=== PATIENT | male | born 1960 | race Two or more races ===

== ENCOUNTER 2016-12-19 10:30 | Emergency (ER) | payer MEDICAID ==
[~2016-12-19] VITALS: Ht 167.6 cm; Wt 69.0 kg
[~2016-12-19 10:30] MED LIST: LISI-360 PO; METH750T2 PO
[2016-12-19 10:32] VITALS: BP 187/109; PULSE 78; RESP 20; TEMP 97.7; O2SAT 98
--- NOTE | 2016-12-19 11:02 | PD ---
HPI Chief Complaint: Skin Problem Time Seen by Provider: 11:01 Travel History International Travel<30 days: No Contact w/Intl Traveler<30days: No Traveled to known affect area: No History of Present Illness HPI 56-year-old male presents to the emergency Department with complaint of redness , pain, swelling to his left foot that started 3 or 4 days ago. Denies injury. Thinks he may have been bit by an insect. Denies history of gout. Denies fever, vomiting. Denies paresthesias, loss of sensation, decreased range of motion or decreased into the affected extremity. Reports tenderness on palpation and with ambulation. Has taken [id number] anti-inflammatories for symptom management. Unknown tetanus status. Has no other medical complaints. No other modifying factors or associated signs and symptoms. PFSH Past Medical History Cardiovascular Problems: Yes (htn) Gastrointestinal Disorders: Yes (colitis) Hypertension: Yes Musculoskeletal: Yes (CHRONIC NECK/BACK PAIN) Social History Alcohol Use: Yes (OCCASIONAL) Tobacco Use: Yes (1/2 PPD) Substance Use: No Allergies-Medications (Allergen,Severity, Reaction): Coded Allergies: Marcoster (Verified Allergy, Severe, Rash, 12/19/16) Reported Meds & Prescriptions Reported Meds & Active Scripts Active Deltasone (Prednisone) 20 Mg Tab 40 Mg PO DAILY 4 Days start 12/20/2016 Bactrim (Sulfamethoxazole-Trimethoprim) 400-80 Mg Tab 1 Tab PO BID 10 Days Naproxen 500 Mg Tab 500 Mg PO BID 7 Days Keflex (Cephalexin) 500 Mg Cap 500 Mg PO Q6H 10 Days Lisinopril 10 mg (Lisinopril) 10 Mg Tab 1 Tab PO DAILY Methocarbamol 750 Mg Tab 750 Mg PO QID Review of Systems Except as stated in HPI: all other systems reviewed are Neg Physical Exam Narrative GENERAL: Well-nourished, well-developed male patient, in no acute distress ; afebrile, nontoxic-appearing SKIN: Warm and dry. Left foot dorsal great toe with mild erythema and mild edema extending into the metatarsal region. Tender on palpation. No abscess noted. Left Lower extremity supple and nontense with 2+ pedal pulse and sensory intact. HEAD: Atraumatic. Normocephalic. EYES: Pupils equal and round. No scleral icterus. No injection or drainage. ENT: Mucosa pink and moist. No erythema or exudates. NECK: Trachea midline. No lymphadenopathy. CARDIOVASCULAR: Regular rate. RESPIRATORY: No accessory muscle use. GASTROINTESTINAL: Flat. MUSCULOSKELETAL: No obvious deformities. No clubbing. No cyanosis. No edema. NEUROLOGICAL: Awake and alert. Oriented 3. No obvious cranial nerve deficits. Motor grossly within normal limits. Normal speech. Moves all extremities. 5/5 strength to all extremities. PSYCHIATRIC: Appropriate mood and affect; insight and judgment normal. Data Data Last Documented VS Vital Signs Date Time Temp Pulse Resp B/P Pulse Ox O2 Delivery O2 Flow Rate FiO2 12/19/16 10:32 97.7 78 20 187/109 98 Room Air Orders Tetanus/Diphtheria Tox Adult (Tetanus/Di (12/19/16 11:15) Ketorolac Inj (Toradol Inj) (12/19/16 11:15) Foot, Complete (Eai2kiu) (12/19/16 11:02) Ice/Cold Pack (12/19/16 11:02) Prednisone (Deltasone) (12/19/16 11:15) MDM Medical Decision Making Medical Screen Exam Complete: Yes Emergency Medical Condition: Yes Medical Record Reviewed: Yes Differential Diagnosis Gout exacerbation, cellulitis, osteomyelitis Narrative Course 56-year-old male with redness to the dorsal metatarsal region of the left great toe that extends to the metatarsal region. Denies history of gout. Denies injury. Finding are consistent with possible gout exacerbation or cellulitis. I will treat the patient for possibility of gout and cellulitis. She is afebrile nontoxic appearing. He denies fever, vomiting. Tetanus updated in the ER. Toradol and Deltasone administered in the ER. 1318: Left foot x-ray concludes: Last 24 hours Impressions Foot X-Ray 12/19/16 1102 Signed Impressions: Service Date/Time: Monday, December 19, 2016 11:18 - CONCLUSION: Unremarkable study except for calcaneal spur. Júnior Camilo MD I will treat the patient for possible gout exacerbation and cellulitis. Crutches provided for support. Keflex, Bactrim, naproxen, Deltasone prescribed for home. Instructed patient to follow up with primary care provider. Patient verbalizes understanding and agreement with treatment plan. Patient is medically cleared and stable for discharge. Discussed reasons to return to the emergency department. Patient agrees with treatment plan. The patients vital signs are stable and the patient is stable for outpatient follow-up and treatment. Patient discharged home, stable and in no acute distress. Diagnosis Primary Impression: Inflammation of foot joint Additional Impression: Edema of left foot Referrals: Primary Care Physician Patient Instructions: Cellulitis (ED), Crutch Instructions (ED), General Instructions, Gout (ED) Departure Forms: Tests/Procedures, Work Release Enter return to work date: Dec 22, 2016 Additional Instructions: Antibiotics as prescribed Naproxen as prescribed Rest Elevate affected extremity Oral steroids as prescribed Crutches as needed for support Avoid red meat, shellfish, alcohol, and other triggering foods to decrease risk of gout flare-ups Follow-up with your primary care provider Return to the emergency department with worsening of symptoms Med/Other Pt SpecificInfo: Prescription(s) given Scripts Prednisone (Deltasone)20 Mg Tab40 Mg PO DAILY 4 Days Ref 0 start 12/20/2016 Prov:Zayda Corbett 12/19/16 Sulfamethoxazole-Trimethoprim (Bactrim)400-80 Mg Tab1 Tab PO BID 10 Days Ref 0 Prov:Zayda Corbett 12/19/16 Naproxen 500 Mg Qkd226 Mg PO BID 7 Days Ref 0 Prov:Zayda Corbett 12/19/16 Cephalexin (Keflex)500 Mg Qdw442 Mg PO Q6H 10 Days Ref 0 Prov:Zayda CorbettP 12/19/16 Disposition: 01 DISCHARGE HOME Condition: Stable Zayda Corbett Dec 19, 2016 11:01
[2016-12-19] MEDS ORDERED: KETOROLAC TROMETHAMINE 60 MG/2 ML (IM) VIAL IM ONE (11:15)
[2016-12-19] MEDS ORDERED: predniSONE 20 MG TAB PO ONE (11:15)
[2016-12-19] MEDS ORDERED: TETANUS/DIPHTHERIA TOXOID ADULT 0.5 ML VIAL IM ONE (11:15)
--- NOTE | 2016-12-19 12:00 | RADRPT ---
EXAM DATE/TIME: 12/19/2016 11:18 [facility] COMPARISON: No previous studies available for comparison. INDICATIONS : Left foot inflammation for 3 days. No known injury. MEDICAL HISTORY : Hypertension. SURGICAL HISTORY : None. ENCOUNTER: Initial ACUITY: 3 days PAIN SCORE: 5/10 LOCATION: Left foot FINDINGS: No definite fractures, or dislocations are identified. No definite lytic or sclerotic lesion is seen . Calcaneal spur is present at the attachment site of the plantar aponeurosis. CONCLUSION: Unremarkable study except for calcaneal spur. Júnior Camilo MD on December 19, 2016 at 11:57 Board Certified Radiologist. This report was verified electronically.
[2016-12-19] MEDS ORDERED: CEPH-460 PO (13:22)
[2016-12-19] MEDS ORDERED: BACT400T PO (13:22)
[2016-12-19] MEDS ORDERED: NAPR500T PO (13:22)
[2016-12-19] MEDS ORDERED: PRED-503 PO (13:22)
== END 2016-12-19 14:17 | disposition home or self-care (01) ==
LOC: NEPD 10:30
DX: R60.9 Edema, unspecified (principal); I10 Essential (primary) hypertension; F17.200 Nicotine dependence, unspecified, uncomplicated; Z79.899 Other long term (current) drug therapy; Z23 Encounter for immunization
CPT/HCPCS: 73630; 90471; 90714; 96372; 99284; E0113; J1885; J7512

== ENCOUNTER 2017-01-28 17:10 | Inpatient (IN) | payer OTHER ==
[~2017-01-28 17:10] MED LIST changes: +BACT400T PO; +CEPH-460 PO; +NAPR500T PO; +PRED-503 PO
[2017-01-28 23:00] VITALS: O2SAT 99
[2017-01-28] MEDS ORDERED: NALOXONE HCL 0.4 MG/ML AMP IV PRN (23:15)
[2017-01-28] MEDS ORDERED: SODIUM CHLORIDE 0.9% FLUSH 10 ML FLUSH IV FLUSH PRN (23:15)
[2017-01-28 23:30] VITALS: BP 179/99; PULSE 98; RESP 20; TEMP 98.9; O2SAT 100
[2017-01-28] MEDS ORDERED: ACETAMINOPHEN 325 MG TAB PO PRN (23:30)
[2017-01-29] VITALS (8 sets, daily range): BP systolic 144–180; BP diastolic 85–96; PULSE 95–104; RESP 18–22; TEMP 99–99.5; O2SAT 95–100
[2017-01-29] MEDS: PANTOPRAZOLE SODIUM 40 MG VIAL IV PUSH SCH (01:27)
[2017-01-29] MEDS ORDERED: BUTATAB6 PO (03:17)
[2017-01-29] MEDS ORDERED: ONDA4INJ IV PUSH (03:17)
[2017-01-29] MEDS ORDERED: PROSLIQ DOBHOFF (03:17)
[2017-01-29] MEDS ORDERED: MUPI2%T TOPICAL (03:17)
[2017-01-29] MEDS ORDERED: FLEE5TAB PO (03:17)
[2017-01-29] MEDS ORDERED: HUMUINJ5 SQ (03:17)
[2017-01-29] MEDS ORDERED: ASPI81TA11 PO (03:17)
[2017-01-29] MEDS ORDERED: CULT10CA4 PO (03:17)
[2017-01-29] MEDS ORDERED: SENN8.8S7 PO (03:17)
[2017-01-29] MEDS ORDERED: HEPA1INJ SQ (03:17)
[2017-01-29] MEDS ORDERED: TYLE325T PO ×2 (03:17)
[2017-01-29] MEDS ORDERED: NYST1000 SWISH-SWAL (03:17)
[2017-01-29] MEDS ORDERED: AMLO10TA2 PO (03:17)
[2017-01-29] MEDS ORDERED: POTA10PO PO (03:17)
[2017-01-29] MEDS ORDERED: SERO25TA PO (03:17)
[2017-01-29] MEDS ORDERED: [UNRECOGNIZED DRUG - CODE] PO (03:17)
[2017-01-29] MEDS ORDERED: ALBU.5I NEB (03:17)
[2017-01-29] MEDS ORDERED: METO-309 DOBHOFF (03:17)
[2017-01-29] MEDS ORDERED: RESP: ALBUTEROL 2.5 MG/3 ML NEB (PRN) NEB (03:45)
[2017-01-29] MEDS: [UNRECOGNIZED DRUG - OTHER] DOBHOFF SCH ×2 (04:00→06:00)
[2017-01-29 05:20] LABS: ALT (GPT) 129 U/L (12-78); ANION GAP 9 MEQ/L (5-15); AST (GOT) 35 U/L (15-37); BLOOD UREA NITROGEN 12 MG/DL (7-18); CHLORIDE 104 MEQ/L (98-107); GLOMERULAR FILTRATION RATE 121 ML/MIN (>89); POTASSIUM 3.9 MEQ/L (3.5-5.1); SODIUM (NA) 135 MEQ/L (136-145)
[2017-01-29 05:22] LABS: ALKALINE PHOSPHATASE 190 U/L (45-117); TOTAL BILIRUBIN ADULT 0.3 MG/DL (0.2-1.0)
[2017-01-29 05:26] LABS: AUTOMATED NEUTROPHIL # 8.5 TH/MM3 (1.8-7.7); BASOPHIL # 0.1 TH/MM3 (0-0.2); BASOPHIL % 0.5 % (0.0-2.0); EOSINOPHIL # 0.2 TH/MM3 (0-0.4); EOSINOPHIL % 1.6 % (0.0-4.0); HEMATOCRIT 27.4 % (39.0-51.0); HEMO FLAGS DIFF FINAL; LYMPH % 11.3 % (9.0-44.0); LYMPHOCYTE # 1.2 TH/MM3 (1.0-4.8); MEAN CELL VOLUME 90.3 FL (80.0-100.0); MEAN CORPUSCULAR HEMOGLOBIN 30.3 PG (27.0-34.0); MEAN CORPUSCULAR HGB CONC 33.5 % (32.0-36.0); MONO % 8.6 % (0.0-8.0); PLATELET COUNT 840 TH/MM3 (150-450); RED BLOOD COUNT 3.03 MIL/MM3 (4.50-5.90); RED CELL DISTRIBUTION WIDTH 15.3 % (11.6-17.2); WHITE BLOOD COUNT 10.9 TH/MM3 (4.0-11.0)
[2017-01-29] MEDS: HEPARIN SODIUM - SQ 10,000 UNITS/ML VIAL SQ SCH ×3 (06:21→21:47)
[2017-01-29] MEDS: LACTOBACILLUS ACIDOPHILUS TAB PO SCH ×2 (09:00→21:47)
[2017-01-29] MEDS: SODIUM CHLORIDE 0.9% FLUSH 10 ML FLUSH IV FLUSH SCH ×2 (09:00→21:48)
[2017-01-29] MEDS: SENNOSIDES SYRUP 8.8 MG/5 ML CUP PO SCH ×2 (09:00→21:47)
[2017-01-29] MEDS: MUPIROCIN 2% CREAM 15 GM TOPICAL SCH ×2 (09:00→21:47)
[2017-01-29] MEDS: ASPIRIN EC 81 MG TABEC PO SCH (09:00)
[2017-01-29] MEDS: NYSTATIN SUSP 500,000 U/5 ML CUP SWISH-SWAL SCH ×4 (09:00→21:47)
[2017-01-29] MEDS: METOPROLOL TARTRATE 50 MG TAB DOBHOFF SCH (09:00)
--- NOTE | 2017-01-29 12:06 | MH ---
cc: SIOMARA MANCILLA,DAVIS POPE,TUTU Martin M.D. DATE OF ADMISSION: 01/28/2017 HISTORY OF PRESENT ILLNESS: The patient is a 54-year-old gentleman who was transferred to [facility] for a Dr. Tutu Pope evaluation. He was transferred from [facility] for treatment of subarachnoid hemorrhage. He was at work when the complaint of a severe headache. He was taken to an office and given aspirin and some fluids. His mental status continued to decline. He was intubated by EMS en route to the emergency room with seizure activity and decerebrate posturing. Reportedly he had a Lanre Coma Scale of 3 at the [facility] Emergency Department. Initially his pupils were reportedly 5 mm nonreactive. He reportedly began flexing and localizing with his upper extremities. At some point in the emergency department, he was given 1000 milligrams Keppra. The patient's blood pressure was elevated at 200/129 in the emergency department. He had a CT scan of the head that revealed a large amount of diffuse subarachnoid hemorrhage. He was transferred to the [facility] Emergency Room for evaluation. He had a CTA of the neck, which shows the ET tube appears determinate in the latha. No significant flow limiting carotid artery stenosis or dissection. Symmetric vertebral arteries with a slightly larger caliber left vertebral artery, likely moderate stenosis of the distal right vertebral artery near the vertebrobasilar junction with post-stenotic dilatation rather than aneurysm. He had a CTA of the head, which showed no evidence for large vessel occlusion, asymmetric distal vertebral arteries with small caliber right vertebral artery which is tortuous distally with apparent moderate stenosis; however, there is a 5 x 7 mm fusiform dilatation of the vertebral artery just beyond the focal stenosis which appears more prominent on the examination when compared to the carotid CT examination more than expected for a simple post- stenotic dilatation therefore concerning for aneurysm. He had a head CT which showed extensive subarachnoid hemorrhage and a fusiform vertebral artery dilatation. He was admitted to the intensive care unit and continued on ventilator support. IV sedation by Dr. Pope. Anti-hypertensive medications with nicardipine was started. Blood pressure was titrated. He was continued with nimodipine for the vasospasms and Keppra. The patient had an echocardiogram here which showed the left ventricular systolic function is normal with an estimated ejection fraction in the range of 55% to 60%, mild concentric left ventricular hypertrophy. There is asymmetrical septal hypertrophy. with impaired left ventricular relaxation, grade 1 diastolic dysfunction, trace mitral valve regurgitation. PAST MEDICAL HISTORY: Limited. He had consultation done by critical care with a 56-year-old male transferred from [facility] with history of gout and hypertension. PAST SURGICAL HISTORY: No past surgical history. MEDICATIONS: 1. Metoprolol. 2. Medication for gout. FAMILY HISTORY: His father of a stroke in his 50s. The mother had diabetes. The is not aware of any history of cerebral aneurysms. SOCIAL HISTORY: He smokes one to two packs per day and he has been doing that over 25 years. He drinks two beers per night and more on the weekends. He recently quit beer due to gout and switched to wine. He works in [employer] part-time. 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 He is . He was in the acute seizure coma with a need for ventriculostomy. He is supposed to have an angiogram. He had the acute respiratory failure and tobacco abuse. He had nicardipine for blood pressure control. He has gout. He was seen by Dr. Villanueva here also. He had procedure done on January 22. He had a right subclavian central venous access placed by Dr. Caity Villanueva. On January 12, he had a left radial arterial catheter placement for hemodynamic monitoring for underlying subarachnoid hemorrhage. He had the echocardiogram as stated and was seen by neurosurgical. He had remained intubated and mechanically ventilated. He had been sedated with propofol and Fentanyl. The patient would raise the extremities to the bed with decerebrate posturing. He had severe diffuse subarachnoid hemorrhage, fusiform vertebral artery dilatation. He was continued on the ventilator. Followed by critical care here. He was seen by them. Blood pressure was better controlled on the Cardene drip. Had the EEG which showed abnormal study consistent with moderate encephalopathy. No epileptiform discharge seen however there is some compromised study with muscle artifact. Had the interventional radiology progress note on January 13 for the angiograms. Confirmed CTA finding. Nearly fusiform but suspect very broad-based distal right vertebral artery aneurysm with [id number]-[id number] ratio of 0.29. There is peaking of the aneurysm dome. No other aneurysms noted. Had a discharge summary with a large subarachnoid bleed and respiratory failure. He was transferred initially from [facility] with significant diffuse subarachnoid hemorrhage and he presented with pupils mid-range and nonreactive, posturing, initial blood pressure was systolic of 200. He was intubated due to respiratory failure. Had the CT which showed significant diffuse subarachnoid hemorrhage including basilar cisterns and bilateral Sylvian fissures. No significant hydrocephalus. CT angiogram with fusiform dilated distal vertebral arteries. CT angiograms showed the wide based irregular distal vertebral aneurysm. Discussed with interventional radiology who recommended transfer to a tertiary care center for endovascular procedure. His neurological exam was improving. The pupils were 2 mm and nonreactive and arousing to voice and following commands. He was transferred to [facility]. The patient has now been transferred back here to [facility] after being evaluated by neurosurgery there. He had multiple procedures there. 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 He was status post tracheostomy on a trache collar. He has a Dobbhoff tube now in place. He is status post a [employer] shunt. May need a G-tube. He has a history of hyponatremia and has been recently placed on aspirin. His laboratory data here so far includes: White blood cell count of 10.9, his hemoglobin was 9.2, hematocrit was 27.4, his platelet count was 840,000. Neutrophil percent was 78.0. His chemistry had a sodium of 135, slightly decreased. Potassium was 3.9. Chloride is 104. Carbon dioxide 22.0. Anion gap was 9. BUN was 12. Creatinine was 0.68. Estimated GFR was 121. Random glucose 112. Calcium is 8.4. Total bilirubin 0.03. AST was 35. ALT was 129 and elevated. Alkaline phosphatase was 190. The total protein was 6.3. Albumin was 2.1. From January 29. Has had no new imaging here. Currently he is awake and alert and lying in the bed. Temperature is 99.4 axillary. His pulse is 97. Respiratory rate is 22. Blood pressure is 153/87. His head appears dressed on the right side. He has had surgery. Other than that, it is normocephalic and atraumatic. It is surgically dressed on the right side. His pupils are equal round and reactive to light and accommodation. Extraocular muscles appear grossly intact. Oral mucosa is moist. Oropharynx is clear. Tongue is midline. There is a Dobbhoff tube in place. There is no jugular venous distention or thyromegaly. Heart is regular rate and rhythm, S1-S2, no S3 or S4. No murmurs, rubs or gallops. Lungs are clear to auscultation bilaterally. No wheezes, rales or rhonchi. The abdomen is soft, nontender and nondistended. Positive bowel sounds. No rebound, rigidity or guarding. Extremities show no clubbing, cyanosis or edema. Good pedal pulses bilaterally. Deep tendon reflexes are 2-4 upper extremities and lower extremities bilaterally. Cranial nerves II through XII are grossly intact. Skin is warm and dry. No obvious rashes. Moves all four extremities. Motor strength is about 4.5/5 in the upper extremities and lower extremities bilaterally. Insight and judgment appear good. Mood and behavior are somewhat appropriate. He is able to mouth words and answer questions appropriately but a little slow to answer due to the fact that I have to read his lips so he has to speak slower so I can figure out what he is saying. His medication reconciliation is not available due to our downtime procedure. He is currently on subcutaneous heparin. He has been admitted by Dr. Vu. Continue on subcutaneous heparin. Continue on albuterol. Continue on Norvasc 10 milligrams daily. Continue on aspirin 81 milligrams daily. Continue on bisacodyl as needed. Metoprolol 50 milligrams via Dobbhoff daily. Continue on mupirocin cream topical twice a day and Nystatin 5 mL swish and swallow four times a day. Continue on Seroquel 25 milligrams at bedtime. Continue on Senna liquid 8.8 milligrams twice a day. Continue on lactobacillus one tab twice a day. Continue on Dobbhoff. Continue on Tylenol. Continue on Protonix 40 milligrams IV daily. Continue on tracheostomy. Has SCDs bilateral lower extremities. Neurosurgery has been consulted. Has acetaminophen on board. He has been admitted to inpatient. Vitals per protocol. Will ask physical therapy and occupational therapy to evaluate. Tube feed dieting. Made inpatient. Will ask speech therapy to evaluate and treat also later today. Will monitor him here. May need feeding tube depending on if he is able to pass a swallow evaluation or not. Will get a.m. labs and CBC. Continue on DVT and GI prophylaxis. Await neurosurgical evaluation and the patient will be followed. 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 3. Status post tracheostomy with a trache collar in place. 4. Has a Dobbhoff feeding tube for dysphagia and for nutrition. 5. He is status post a ventriculoperitoneal shunt creation. 6. He may need a G-tube depending on how he does with his swallow evaluation and his hyponatremia, which is chronic. 7. He has now been re-started on aspirin. 8. History of gout. 9. Hypertension. 10. He appears to have some issues with confusion since he is on the Seroquel now, metoprolol and the aspirin and Protonix. 11. GI prophylaxis. He will be followed throughout the admission for any other issues that may arise. Will require speech therapy. The patient can be followed throughout the admission. He was transferred back into our facility on January 28, 2017. He is now being seen here on January 29, 2017. Have discussed with the patient, RNs, case loader operator and await the consult by the neurosurgeon and he will be followed throughout the admission for any other issues that may arise. For any other information, please see the chart. Siomara Mancilla DO [facility] [place] /10:48 AM /11:25 AM
[2017-01-29] MEDS: ACETAMINOPHEN 650 MG/20.3 ML UDC PO PRN ×2 (21:46→21:47)
[2017-01-29] MEDS: QUEtiapine FUMARATE 25 MG TAB PO SCH (21:47)
[2017-01-29] MEDS ORDERED: MORPHINE SULFATE 4 MG/ML INJ IV PUSH ONE (22:45)
[2017-01-30] VITALS (11 sets, daily range): BP systolic 98–162; BP diastolic 55–94; PULSE 89–122; RESP 16–22; TEMP 98.4–100.6; O2SAT 95–99
[2017-01-30] MEDS: PANTOPRAZOLE SODIUM 40 MG VIAL IV PUSH SCH (00:50)
[2017-01-30] MEDS: ACETAMINOPHEN 650 MG/20.3 ML UDC PO PRN ×4 (01:58→22:24)
[2017-01-30] MEDS: HEPARIN SODIUM - SQ 10,000 UNITS/ML VIAL SQ SCH ×3 (06:08→22:27)
[2017-01-30] MEDS: LACTOBACILLUS ACIDOPHILUS TAB PO SCH ×2 (08:03→22:24)
[2017-01-30] MEDS: ASPIRIN EC 81 MG TABEC PO SCH (08:03)
[2017-01-30] MEDS: NYSTATIN SUSP 500,000 U/5 ML CUP SWISH-SWAL SCH ×2 (08:04→17:11)
[2017-01-30] MEDS: SENNOSIDES SYRUP 8.8 MG/5 ML CUP PO SCH ×2 (08:04→22:24)
[2017-01-30] MEDS: METOPROLOL TARTRATE 50 MG TAB DOBHOFF SCH (08:04)
[2017-01-30] MEDS: SODIUM CHLORIDE 0.9% FLUSH 10 ML FLUSH IV FLUSH SCH ×2 (08:05→21:00)
[2017-01-30 09:38] LABS: AUTOMATED NEUTROPHIL # 14.5 TH/MM3 (1.8-7.7); BASOPHIL % 0.3 % (0.0-2.0); EOSINOPHIL # 0.1 TH/MM3 (0-0.4); EOSINOPHIL % 0.5 % (0.0-4.0); HEMATOCRIT 29.4 % (39.0-51.0); HEMO FLAGS DIFF FINAL; LYMPH % 3.2 % (9.0-44.0); LYMPHOCYTE # 0.5 TH/MM3 (1.0-4.8); MEAN CELL VOLUME 90.9 FL (80.0-100.0); MEAN CORPUSCULAR HEMOGLOBIN 29.5 PG (27.0-34.0); MEAN CORPUSCULAR HGB CONC 32.4 % (32.0-36.0); MONO % 5.6 % (0.0-8.0); NEUT % 90.4 % (16.0-70.0); PLATELET COUNT 880 TH/MM3 (150-450); RED BLOOD COUNT 3.24 MIL/MM3 (4.50-5.90); RED CELL DISTRIBUTION WIDTH 15.5 % (11.6-17.2); WHITE BLOOD COUNT 16.1 TH/MM3 (4.0-11.0)
[2017-01-30 09:53] LABS: ANION GAP 10 MEQ/L (5-15); AST (GOT) 42 U/L (15-37); BICARBONATE 22.9 MEQ/L (21.0-32.0); BLOOD UREA NITROGEN 12 MG/DL (7-18); CHLORIDE 100 MEQ/L (98-107); GLOMERULAR FILTRATION RATE 110 ML/MIN (>89); MAGNESIUM 2.4 MG/DL (1.5-2.5); POTASSIUM 3.8 MEQ/L (3.5-5.1); SODIUM (NA) 133 MEQ/L (136-145)
[2017-01-30 10:05] LABS: ALKALINE PHOSPHATASE 239 U/L (45-117); ALT (GPT) 145 U/L (12-78); FREE T4 1.28 NG/DL (0.76-1.46); TOTAL BILIRUBIN ADULT 0.5 MG/DL (0.2-1.0)
--- NOTE | 2017-01-30 12:30 | HHI.PR ---
Subjective Remarks The patient is a 54-year-old gentleman who was transferred to [facility] for a Dr. Tutu Cassidy evaluation. He was transferred from [facility] for treatment of subarachnoid hemorrhage. He was at work when the complaint of a severe headache. He was taken to an office and given aspirin and some fluids. His mental status continued to decline. He was intubated by EMS en route to the emergency room with seizure activity and decerebrate posturing. Reportedly he had a Lanre Coma Scale of 3 at the [facility] Emergency Department. Initially his pupils were reportedly 5 mm nonreactive. He reportedly began flexing and localizing with his upper extremities. At some point in the emergency department, he was given 1000 milligrams Keppra. The patient's blood pressure was elevated at 200/129 in the emergency department. He had a CT scan of the head that revealed a large amount of diffuse subarachnoid hemorrhage. He was transferred to the [facility] Emergency Room for evaluation. He had a CTA of the neck, which shows the ET tube appears determinate in the latha. No significant flow limiting carotid artery stenosis or dissection. Symmetric vertebral arteries with a slightly larger caliber left vertebral artery, likely moderate stenosis of the distal right vertebral artery near the vertebrobasilar junction with post-stenotic dilatation rather than aneurysm. He had a CTA of the head, which showed no evidence for large vessel occlusion, asymmetric distal vertebral arteries with small caliber right vertebral artery which is tortuous distally with apparent moderate stenosis; however, there is a 5 x 7 mm fusiform dilatation of the vertebral artery just beyond the focal stenosis which appears more prominent on the examination when compared to the carotid CT examination more than expected for a simple post- stenotic dilatation therefore concerning for aneurysm. He had a head CT which showed extensive subarachnoid hemorrhage and a fusiform vertebral artery dilatation. He was admitted to the intensive care unit and continued on ventilator support. IV sedation by Dr. Cassidy. Anti-hypertensive medications with nicardipine was started. Blood pressure was titrated. He was continued with nimodipine for the vasospasms and Keppra. The patient had an echocardiogram here which showed the left ventricular systolic function is normal with an estimated ejection fraction in the range of 55% to 60%, mild concentric left ventricular hypertrophy. TRANSFERRED BACK FROM [facility] HAD COILING AND FAMILY AND MARRIAGE COUNSELLOR SHUNT AT [facility] He was transferred to [facility]. The patient has now been transferred back here to [facility] after being evaluated by neurosurgery there. He had multiple procedures there. 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 He was status post tracheostomy on a trache collar. He has a Dobbhoff tube now in place. He is status post a FAMILY AND MARRIAGE COUNSELLOR shunt. May need a G-tube. He has a history of hyponatremia and has been recently placed on aspirin. 01-30 NOTED TO HAVE SOME FEVERS LAST NIGHT NO SOB, NO CHEST PAIN NO PALPITATIONS TO WORK WITH PT AND OT AND ST TODAY . Objective Vitals Vital Signs Date Time Temp Pulse Resp B/P (MAP) Pulse Ox O2 Delivery O2 Flow Rate FiO2 01/30/17 08:55 100.6 122 22 155/83 (107) 95 01/30/17 04:30 98.4 97 20 162/94 (116) 98 01/30/17 03:23 99.5 01/30/17 02:58 18 01/30/17 02:33 99 01/30/17 01:59 99.6 01/30/17 01:07 99.5 98 20 116/62 (80) 99 01/29/17 23:11 20 01/29/17 21:13 100 T-piece 6.00 28 01/29/17 21:03 99.5 98 19 157/89 (111) 100 01/29/17 20:00 99.5 104 20 165/95 (118) 100 01/29/17 16:00 99.1 95 18 144/85 (104) 99 I/O 01/29/17 01/29/17 01/29/17 01/30/17 01/30/17 01/30/17 07:00 15:00 23:00 07:00 15:00 23:00 Output Total 300 ml 850 ml Balance -300 ml -850 ml Output Urine Total 300 ml 850 ml # Voids 3 1 1 Result Diagram: 01/30/17 0855 01/30/17 0855 Other Results Laboratory Tests Test 01/29/17 04:19 01/30/17 08:55 White Blood Count 10.9 TH/MM3 16.1 TH/MM3 Red Blood Count 3.03 MIL/MM3 3.24 MIL/MM3 Hemoglobin 9.2 GM/DL 9.5 GM/DL Hematocrit 27.4 % 29.4 % Mean Corpuscular Volume 90.3 FL 90.9 FL Mean Corpuscular Hemoglobin 30.3 PG 29.5 PG Mean Corpuscular Hemoglobin Concent 33.5 % 32.4 % Red Cell Distribution Width 15.3 % 15.5 % Platelet Count 840 TH/MM3 880 TH/MM3 Mean Platelet Volume 6.1 FL 5.9 FL Neutrophils (%) (Auto) 78.0 % 90.4 % Lymphocytes (%) (Auto) 11.3 % 3.2 % Monocytes (%) (Auto) 8.6 % 5.6 % Eosinophils (%) (Auto) 1.6 % 0.5 % Basophils (%) (Auto) 0.5 % 0.3 % Neutrophils # (Auto) 8.5 TH/MM3 14.5 TH/MM3 Lymphocytes # (Auto) 1.2 TH/MM3 0.5 TH/MM3 Monocytes # (Auto) 0.9 TH/MM3 0.9 TH/MM3 Eosinophils # (Auto) 0.2 TH/MM3 0.1 TH/MM3 Basophils # (Auto) 0.1 TH/MM3 0.0 TH/MM3 CBC Comment DIFF FINAL DIFF FINAL Differential Comment Blood Urea Nitrogen 12 MG/DL 12 MG/DL Creatinine 0.68 MG/DL 0.74 MG/DL Random Glucose 112 MG/DL 171 MG/DL Total Protein 6.3 GM/DL 6.5 GM/DL Albumin 2.1 GM/DL 2.2 GM/DL Calcium Level 8.4 MG/DL 8.7 MG/DL Alkaline Phosphatase 190 U/L 239 U/L Aspartate Amino Transf (AST/SGOT) 35 U/L 42 U/L Alanine Aminotransferase (ALT/SGPT) 129 U/L 145 U/L Total Bilirubin 0.3 MG/DL 0.5 MG/DL Sodium Level 135 MEQ/L 133 MEQ/L Potassium Level 3.9 MEQ/L 3.8 MEQ/L Chloride Level 104 MEQ/L 100 MEQ/L Carbon Dioxide Level 22.0 MEQ/L 22.9 MEQ/L Anion Gap 9 MEQ/L 10 MEQ/L Estimat Glomerular Filtration Rate 121 ML/MIN 110 ML/MIN Phosphorus Level 2.4 MG/DL Magnesium Level 2.4 MG/DL Free Thyroxine 1.28 NG/DL Thyroid Stimulating Hormone 3rd Gen 0.954 uIU/ML Objective Remarks GENERAL: AWAKE AND ALERT AND ORIENTED HAS DOBBHOFF TUBES IN PLACE SKIN: Warm and dry. HEAD: Atraumatic. Normocephalic. EYES: Pupils equal and round. No scleral icterus. No injection or drainage. EOMI INTACT ENT: No nasal bleeding or discharge. Mucous membranes pink and moist.TONGUE MIDLINE DOBBHOFF IN PLACE NECK: Trachea midline. No JVD. SUPPLE CARDIOVASCULAR: Regular rate and rhythm. S1, S2 NO S3 OR S4 NO HEAVE OR THRILL RESPIRATORY: No accessory muscle use. Clear to auscultation. Breath sounds equal bilaterally. GASTROINTESTINAL: Abdomen soft, non-tender, nondistended. Hepatic and splenic margins not palpable. MUSCULOSKELETAL: Extremities without clubbing, cyanosis, or edema. No obvious deformities. NEUROLOGICAL: Awake and alert. No obvious cranial nerve deficits. Motor grossly within normal limits. 4 out of 5 muscle strength in the arms and legs. HAS TRACH PSYCHIATRIC: Appropriate mood and affect; insight and judgment normal. Procedures He was transferred to [facility]. The patient has now been transferred back here to [facility] after being evaluated by neurosurgery there. He had multiple procedures there. 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 He was status post tracheostomy on a trache collar. He has a Dobbhoff tube now in place. He is status post a FAMILY AND MARRIAGE COUNSELLOR shunt. May need a G-tube. He has a history of hyponatremia and has been recently placed on aspirin. Medications and IVs Current Medications Sodium Chloride (NS Flush) 2 ml UNSCH PRN IV FLUSH FLUSH AFTER USING IV ACCESS ; Start 01/28/17 at 23:15 Sodium Chloride (NS Flush) 2 ml BID IV FLUSH Last administered on 01/30/17t 08: 05; Start 01/29/17 at 09:00 Naloxone HCl (Narcan Inj) 0.4 mg UNSCH PRN IV SEE LABEL COMMENTS; Start at 23:15 Acetaminophen (Tylenol) 650 mg Q4H PRN PO KRISHNAN, fever; Start 01/28/17 at 23:30; Stop 01/29/17 at 01:36; Status DC Pantoprazole Sodium (Protonix Inj) 40 mg Q24H IV PUSH Last administered on 01/30 00:50; Start 01/29/17 at 00:00 Acetaminophen (Tylenol 650 Mg/ 20 ml Liq) 650 mg Q4H PRN PO fever or krishnan Last administered on 01/30/17 08:05; Start 01/29/17 at 01:45 Albuterol Sulfate (Albuterol Neb) 2.5 mg Q4HR NEB PRN NEB WHEEZING; Start 01/29 at 03:45 Amlodipine Besylate (Norvasc) 10 mg DAILY PO Last administered on 01/30/17 08: 04; Start 01/29/17 at 09:00 Aspirin (Ecotrin Ec) 81 mg DAILY PO Last administered on 01/30/17 08:03; Start 01/29/17 at 09:00 Bisacodyl (Dulcolax Ec) 5 mg DAILY PRN PO CONSTIPATION; Start 01/29/17 at 03:45 Metoprolol Tartrate (Lopressor) 50 mg DAILY DOBHOFF Last administered on 08:04; Start 01/29/17 at 09:00 Mupirocin (Bactroban 2% Cream) 1 applic BID TOPICAL Last administered on 21:47; Start 01/29/17 at 09:00 Nystatin (Mycostatin Liq) 5 ml QID SWISH-SWAL Last administered on 01/30/17 08:04; Start 01/29/17 at 09:00 Quetiapine Fumarate (SEROquel) 25 mg HS PO Last administered on 01/29/17 21:47 ; Start 01/29/17 at 21:00 Sennosides (Senna Liq) 8.8 mg BID PO Last administered on 01/30/17 08:04; Start 01/29/17 at 09:00 Patient Own Medication PT OWN MED: PROSOU... DAILY@15 DOBHOFF ; Start 01/29/17 at 15:00 Lactobacillus Acidophilus (Lactinex) 1 tab BID PO NS Last administered on 08:03; Start 01/29/17 at 09:00 Patient Own Medication PT OWN MED: NYMAL... Q2H DOBHOFF ; Start 01/29/17 at 04: 00; Status Future Hold Heparin Sodium (Porcine) (Heparin Inj) 5,000 units Q8HR SQ Last administered on 01/30/17 06:08; Start 01/29/17 at 06:00 Morphine Sulfate (Morphine Inj) 2 mg ONCE ONCE IV PUSH Last administered on t 23:06; Start 01/29/17 at 22:45; Stop 01/29/17 at 22:46; Status DC A/P Problem List: (1) Subarachnoid hemorrhage ICD Code: I60.9 - Nontraumatic subarachnoid hemorrhage, unspecified Status: Acute (2) Peripheral vascular disease ICD Code: I73.9 - Peripheral vascular disease, unspecified (3) Hyponatremia ICD Code: E87.1 - Hypo-osmolality and hyponatremia (4) Leukocytosis ICD Code: D72.829 - Elevated white blood cell count, unspecified (5) Anxiety ICD Code: F41.9 - Anxiety disorder, unspecified (6) Dysphagia ICD Code: R13.10 - Dysphagia, unspecified Assessment and Plan 1. Subarachnoid dissected right artery aneurysm. Status post coiling and pipeline into the PICA. 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 Status post tracheostomy with a trache collar in place. 4. Has a Dobbhoff feeding tube for dysphagia and for nutrition. 5. He is status post a ventriculoperitoneal shunt creation. 6. He may need a G-tube depending on how he does with his swallow evaluation and his hyponatremia, which is chronic. 7. He has now been re-started on aspirin. 8. History of gout. 9. Hypertension. 10. He appears to have some issues with confusion since he is on the Seroquel now, metoprolol and the aspirin and Protonix. 11. GI prophylaxis. 12 FEVERS- CHECK A CHEST XRAY, UA, BC X2 DW RN AND PT PAIN CONTROL Bharat Feng DO Jan 30, 2017 12:30
--- NOTE | 2017-01-30 13:54 | RADRPT ---
EXAM DATE/TIME: 01/30/2017 13:03 [place] COMPARISON: CHEST SINGLE AP, January 13, 2017, 5:09. INDICATIONS : Fever, short of breath MEDICAL HISTORY : seizures, hydrocephalus SURGICAL HISTORY : tracheostomy ENCOUNTER: Subsequent ACUITY: 3 weeks PAIN SCORE: Non-responsive. LOCATION: Bilateral chest FINDINGS: A single view of the chest demonstrates left basilar density. Tracheostomy tube with tip 6 cm with a chronic. Heart normal size. Nasogastric tube seen with tip below the inferior margin of the image. FARMWORKER MACHINE shunt catheter seen in the right. Osseous structures are intact. CONCLUSION: 1. Minimal left basilar density slightly improved. Julio Stovall MD on January 30, 2017 at 13:50 Board Certified Radiologist. This report was verified electronically.
--- NOTE | 2017-01-30 14:47 | PD.CONS ---
(Julio Fox) HPI Service Neurosurgery Consult Requested By Afshan Driver, AIRCRAFT ENGINE MECH[employer]IC [employer]/ Hospitalist group Reason for Consult Neurosurgical management of history of subarachnoid hemorrhage and shunt placement. Primary Care Physician Unknown History of Present Illness This is a 56-year-old male who initially presented to [place] on 01/12/17 after he was transferred from [facility] for treatment of his subarachnoid hemorrhage. At that time he was at work in the morning and developed severe headache and had an acute decline in his neurological status. He was intubated in route to the emergency room and had seizures and decerebrate posturing. We will write her for almost emergency room his GCS was 3 has pupils were reportedly 5 mm and nonreactive. He was very hypertensive with a blood pressure of 200/129. His CT revealed a large amount of diffuse subarachnoid hemorrhage and is transferred to [place] emergency room where he was evaluated by Dr. Cassidy from neurosurgery. At [place] patient has CT of the head, CTA of the brain and CTA of the neck. Recommendation was made for cerebral angiogram which was undertaken on 01/13/17 which confirmed the CTA findings and a very broad-based distal right vertebral artery aneurysm. The [facility] [place]. The following history was obtained from reviewing her medical records. He underwent a right frontal ventricular drain initially on 01/14/17 and then an endovascular coiling of the intradural right vertebral artery on 01/15/17. Record states that he had demonstrated evidence of external hydrocephalus with clamping of his ventriculostomy drain with elevated ICP and development of left greater than right subdural effusions. He subsequently required a right frontal ventriculoperitoneal shunt on 01/27/17. He is now transferred back to [place] for continued care. (Julio Fox) Review of Systems Somewhat limited given that he has a trach in place and this on T piece oxygen and is unable to speak but he does mouth words. He complains of headache no nausea or vomiting. He complains of double vision. No chest pain or shortness of breath. (Piazza,Julio S. PA) Past Family Social History Allergies: Coded Allergies: No Known Allergies (Unverified , 01/12/17) Past Medical History Unable to obtain given the patient's clinical condition Past Surgical History Right frontal ventriculostomy drain on 01/14/17 Review of medical records reveals endovascular coiling and sacrifice of intradural right vertebral artery on 01/15/17. Tracheostomy on 01/22/17 Right frontal ventriculoperitoneal shunt placement on 01/27/17 Reported Medications Current Medications Sodium Chloride (NS Flush) 2 ml UNSCH PRN IV FLUSH FLUSH AFTER USING IV ACCESS ; Start 01/28/17 at 23:15 Sodium Chloride (NS Flush) 2 ml BID IV FLUSH Last administered on 01/30/17 08: 05; Start 01/29/17 at 09:00 Naloxone HCl (Narcan Inj) 0.4 mg UNSCH PRN IV SEE LABEL COMMENTS; Start at 23:15 Acetaminophen (Tylenol) 650 mg Q4H PRN PO RIVERA, fever; Start 01/28/17 at 23:30; Stop 01/29/17 at 01:36; Status DC Pantoprazole Sodium (Protonix Inj) 40 mg Q24H IV PUSH Last administered on 01/30 00:50; Start 01/29/17 at 00:00 Acetaminophen (Tylenol 650 Mg/ 20 ml Liq) 650 mg Q4H PRN PO fever or rivera Last administered on 01/30/17 08:05; Start 01/29/17 at 01:45 Albuterol Sulfate (Albuterol Neb) 2.5 mg Q4HR NEB PRN NEB WHEEZING; Start 01/29 at 03:45 Amlodipine Besylate (Norvasc) 10 mg DAILY PO Last administered on 01/30/17 08: 04; Start 01/29/17 at 09:00 Aspirin (Ecotrin Ec) 81 mg DAILY PO Last administered on 01/30/17 08:03; Start 01/29/17 at 09:00 Bisacodyl (Dulcolax Ec) 5 mg DAILY PRN PO CONSTIPATION; Start 01/29/17 at 03:45 Metoprolol Tartrate (Lopressor) 50 mg DAILY DOBHOFF Last administered on 08:04; Start 01/29/17 at 09:00 Mupirocin (Bactroban 2% Cream) 1 applic BID TOPICAL Last administered on 21:47; Start 01/29/17 at 09:00 Nystatin (Mycostatin Liq) 5 ml QID SWISH-SWAL Last administered on 01/30/17 08:04; Start 01/29/17 at 09:00 Quetiapine Fumarate (SEROquel) 25 mg HS PO Last administered on 01/29/17 21:47 ; Start 01/29/17 at 21:00 Sennosides (Senna Liq) 8.8 mg BID PO Last administered on 01/30/17 08:04; Start 01/29/17 at 09:00 Patient Own Medication PT OWN MED: PROSOU... DAILY@15 DOBHOFF ; Start 01/29/17 at 15:00 Lactobacillus Acidophilus (Lactinex) 1 tab BID PO NS Last administered on 08:03; Start 01/29/17 at 09:00 Patient Own Medication PT OWN MED: NYMAL... Q2H DOBHOFF ; Start 01/29/17 at 04: 00; Status Future Hold Heparin Sodium (Porcine) (Heparin Inj) 5,000 units Q8HR SQ Last administered on 01/30/17 06:08; Start 01/29/17 at 06:00 Morphine Sulfate (Morphine Inj) 2 mg ONCE ONCE IV PUSH Last administered on 23:06; Start 01/29/17 at 22:45; Stop 01/29/17 at 22:46; Status DC Active Ordered Medications Current Medications Sodium Chloride (NS Flush) 2 ml UNSCH PRN IV FLUSH FLUSH AFTER USING IV ACCESS ; Start 01/28/17 at 23:15 Sodium Chloride (NS Flush) 2 ml BID IV FLUSH Last administered on 01/30/17 08: 05; Start 01/29/17 at 09:00 Naloxone HCl (Narcan Inj) 0.4 mg UNSCH PRN IV SEE LABEL COMMENTS; Start at 23:15 Acetaminophen (Tylenol) 650 mg Q4H PRN PO RIVERA, fever; Start 01/28/17 at 23:30; Stop 01/29/17 at 01:36; Status DC Pantoprazole Sodium (Protonix Inj) 40 mg Q24H IV PUSH Last administered on 01/30 00:50; Start 01/29/17 at 00:00 Acetaminophen (Tylenol 650 Mg/ 20 ml Liq) 650 mg Q4H PRN PO fever or rivera Last administered on 01/30/17 08:05; Start 01/29/17 at 01:45 Albuterol Sulfate (Albuterol Neb) 2.5 mg Q4HR NEB PRN NEB WHEEZING; Start 01/29 at 03:45 Amlodipine Besylate (Norvasc) 10 mg DAILY PO Last administered on 01/30/17 08: 04; Start 01/29/17 at 09:00 Aspirin (Ecotrin Ec) 81 mg DAILY PO Last administered on 01/30/17 08:03; Start 01/29/17 at 09:00 Bisacodyl (Dulcolax Ec) 5 mg DAILY PRN PO CONSTIPATION; Start 01/29/17 at 03:45 Metoprolol Tartrate (Lopressor) 50 mg DAILY DOBHOFF Last administered on 08:04; Start 01/29/17 at 09:00 Mupirocin (Bactroban 2% Cream) 1 applic BID TOPICAL Last administered on 21:47; Start 01/29/17 at 09:00 Nystatin (Mycostatin Liq) 5 ml QID SWISH-SWAL Last administered on 01/30/17 08:04; Start 01/29/17 at 09:00 Quetiapine Fumarate (SEROquel) 25 mg HS PO Last administered on 01/29/17 21:47 ; Start 01/29/17 at 21:00 Sennosides (Senna Liq) 8.8 mg BID PO Last administered on 01/30/17 08:04; Start 01/29/17 at 09:00 Patient Own Medication PT OWN MED: PROSOU... DAILY@15 DOBHOFF ; Start 01/29/17 at 15:00 Lactobacillus Acidophilus (Lactinex) 1 tab BID PO NS Last administered on 08:03; Start 01/29/17 at 09:00 Patient Own Medication PT OWN MED: NYMAL... Q2H DOBHOFF ; Start 01/29/17 at 04: 00; Status Future Hold Heparin Sodium (Porcine) (Heparin Inj) 5,000 units Q8HR SQ Last administered on 01/30/17 06:08; Start 01/29/17 at 06:00 Morphine Sulfate (Morphine Inj) 2 mg ONCE ONCE IV PUSH Last administered on 23:06; Start 01/29/17 at 22:45; Stop 01/29/17 at 22:46; Status DC Family History Unable to obtain given the patient's clinical condition. Social History Unable to obtain given the patient's clinical condition. (Julio Fox) Physical Exam Vital Signs Vital Signs Date Time Temp Pulse Resp B/P (MAP) Pulse Ox O2 Delivery O2 Flow Rate FiO2 01/30/17 12:28 99.2 97 22 98/55 (69) 95 01/30/17 08:55 100.6 122 22 155/83 (107) 95 01/30/17 04:30 98.4 97 20 162/94 (116) 98 01/30/17 03:23 99.5 01/30/17 02:58 18 01/30/17 02:33 99 01/30/17 01:59 99.6 01/30/17 01:07 99.5 98 20 116/62 (80) 99 01/29/17 23:11 20 01/29/17 21:13 100 T-piece 6.00 28 01/29/17 21:03 99.5 98 19 157/89 (111) 100 01/29/17 20:00 99.5 104 20 165/95 (118) 100 01/29/17 16:00 99.1 95 18 144/85 (104) 99 Physical Exam GENERAL: Resting in bed appearing comfortable and cooperative for exam. HEAD: He has a terry hole incision from his RADIO AERIAL INSTALLER shunt on the right side with dayanara in place. EYES: No scleral icterus. No injection or drainage. NECK: Trach T piece in place on 5 L of O2 CARDIOVASCULAR: Regular rate and rhythm without murmurs, gallops, or rubs. RESPIRATORY: Trach T piece in place on 5 L O2. Breath sounds equal bilaterally. No accessory muscle use. GASTROINTESTINAL: Abdomen soft, non-tender, nondistended. He has an NG tube in place and 2 feeds or at 40 mL/hr He has a horizontal incision from his RADIO AERIAL INSTALLER shunt placement that is healing well with dayanara in place. No erythema or signs of complication. SKIN: No cyanosis, or edema. Scalp and abdomen incisions are clean and dry without signs of infection. SCDs are in place on lower extremities. NEUROLOGICAL: Patient is awake. He nods his head to questions. He attempts to mouth words. Pupils are equal. He has a right cranial nerve palsy and is unable to follow a finger cross midline on the right side. MUSCULOSKELETAL: He moves all 4 extremities with good strength of than mild generalized weakness Laboratory Laboratory Tests Test 01/30/17 08:55 White Blood Count 16.1 Red Blood Count 3.24 Hemoglobin 9.5 Hematocrit 29.4 Mean Corpuscular Volume 90.9 Mean Corpuscular Hemoglobin 29.5 Mean Corpuscular Hemoglobin Concent 32.4 Red Cell Distribution Width 15.5 Platelet Count 880 Mean Platelet Volume 5.9 Neutrophils (%) (Auto) 90.4 Lymphocytes (%) (Auto) 3.2 Monocytes (%) (Auto) 5.6 Eosinophils (%) (Auto) 0.5 Basophils (%) (Auto) 0.3 Neutrophils # (Auto) 14.5 Lymphocytes # (Auto) 0.5 Monocytes # (Auto) 0.9 Eosinophils # (Auto) 0.1 Basophils # (Auto) 0.0 CBC Comment DIFF FINAL Differential Comment Blood Urea Nitrogen 12 Creatinine 0.74 Random Glucose 171 Total Protein 6.5 Albumin 2.2 Calcium Level 8.7 Phosphorus Level 2.4 Magnesium Level 2.4 Alkaline Phosphatase 239 Aspartate Amino Transf (AST/SGOT) 42 Alanine Aminotransferase (ALT/SGPT) 145 Total Bilirubin 0.5 Sodium Level 133 Potassium Level 3.8 Chloride Level 100 Carbon Dioxide Level 22.9 Anion Gap 10 Estimat Glomerular Filtration Rate 110 Free Thyroxine 1.28 Thyroid Stimulating Hormone 3rd Gen 0.954 (Julio Fox) Result Diagram: 01/30/1755 01/30/17 0855 Assessment and Plan Assessment and Plan A: 56-year-old male with a history of acute 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 He was transferred to [facility] where he underwent endovascular coiling with sacrifice of intradural right vertebral artery. He subsequently underwent a right ventriculoperitoneal shunt. He is now transferred back to [place] for further management. Dr. Cassidy is currently out of town who was his neurosurgeon on initial presentation and we have been consulted for assistance with neurosurgical care. P: At this time patient does not require any acute neurosurgical intervention. We will monitor his ventriculoperitoneal shunt incisions which are currently healing well. Continue with physical therapy, occupational therapy, speech therapy Patient currently undergoing a fever workup by the hospitalist group. (Julio Fox) Attending Statement The exam, history, and the medical decision-making described in the above note were completed with the assistance of the mid-level provider. I reviewed and agree with the findings presented. I attest that I had a [id number] encounter with the patient on the same day, and personally performed and documented my assessment and findings in the medical record. Fusiform vertebral aneurysm has been treated with the vertebral artery endovascular occlusion and also had RADIO AERIAL INSTALLER shunt placement for hydrocephalus all undertaken at [facility] in [facility]. RADIO AERIAL INSTALLER shunt dayanara to be removed on . He can be transferred to rehabilitation once bed available and follow-up with Dr. Cassidy. (Kehinde Vu MD) Julio Fox Jan 30, 2017 14:47 Kehinde Vu MD Jan 30, 2017 15:33
[2017-01-30 14:59] LABS: BACTERIA, URINE MANY /hpf; BLOOD, URINE TRACE (NEG); COMMENT (UR) CULTURE INDICATED; CULTURE IF INDICATED CULTURE INDICATED; GLUCOSE,URINE NEG (NEG); KETONE, URINE NEG (NEG); MUCUS URINE FEW /lpf (OCC); NITRITE,URINE NEG (NEG); PH, URINE 5.5 (5.0-8.5); URINE COLOR YELLOW (YELLW/STRAW)
[2017-01-30 16:37] LABS: HEMOGLOBIN A1a 1.1 %; HEMOGLOBIN A1b 0.9 %; HEMOGLOBIN Ao 83.9 %; HEMOGLOBIN F 1.3 %; HEMOGLOBIN LA1C 2.4 %
[2017-01-30] MEDS: MUPIROCIN 2% CREAM 15 GM TOPICAL SCH (21:00)
[2017-01-30] MEDS: QUEtiapine FUMARATE 25 MG TAB PO SCH (22:24)
[2017-01-31] VITALS (9 sets, daily range): BP systolic 122–149; BP diastolic 65–85; PULSE 87–111; RESP 18–22; TEMP 98–100.3; O2SAT 84–99
[2017-01-31 05:32] LABS: AUTOMATED NEUTROPHIL # 10.2 TH/MM3 (1.8-7.7); BASOPHIL % 0.4 % (0.0-2.0); EOSINOPHIL # 0.2 TH/MM3 (0-0.4); EOSINOPHIL % 1.3 % (0.0-4.0); HEMATOCRIT 28.9 % (39.0-51.0); HEMO FLAGS DIFF FINAL; LYMPH % 8.4 % (9.0-44.0); MEAN CELL VOLUME 90.9 FL (80.0-100.0); MEAN CORPUSCULAR HEMOGLOBIN 30.4 PG (27.0-34.0); MEAN CORPUSCULAR HGB CONC 33.5 % (32.0-36.0); MONO % 5.7 % (0.0-8.0); NEUT % 84.2 % (16.0-70.0); PLATELET COUNT 819 TH/MM3 (150-450); RED BLOOD COUNT 3.18 MIL/MM3 (4.50-5.90); RED CELL DISTRIBUTION WIDTH 15.5 % (11.6-17.2); WHITE BLOOD COUNT 12.1 TH/MM3 (4.0-11.0)
[2017-01-31 05:57] LABS: ANION GAP 10 MEQ/L (5-15); AST (GOT) 36 U/L (15-37); BLOOD UREA NITROGEN 11 MG/DL (7-18); CHLORIDE 99 MEQ/L (98-107); GLOMERULAR FILTRATION RATE 190 ML/MIN (>89); MAGNESIUM 2.5 MG/DL (1.5-2.5); POTASSIUM 3.4 MEQ/L (3.5-5.1); SODIUM (NA) 135 MEQ/L (136-145)
[2017-01-31] MEDS: HEPARIN SODIUM - SQ 10,000 UNITS/ML VIAL SQ SCH ×3 (06:00→22:16)
[2017-01-31 06:02] LABS: ALKALINE PHOSPHATASE 260 U/L (45-117); ALT (GPT) 176 U/L (12-78); TOTAL BILIRUBIN ADULT 0.4 MG/DL (0.2-1.0)
[2017-01-31] MEDS: SENNOSIDES SYRUP 8.8 MG/5 ML CUP PO SCH ×2 (09:00→22:16)
[2017-01-31] MEDS: NYSTATIN SUSP 500,000 U/5 ML CUP SWISH-SWAL SCH ×4 (09:00→21:00)
[2017-01-31] MEDS: SODIUM CHLORIDE 0.9% FLUSH 10 ML FLUSH IV FLUSH SCH ×2 (09:00→21:00)
[2017-01-31] MEDS: METOPROLOL TARTRATE 50 MG TAB DOBHOFF SCH (09:35)
[2017-01-31] MEDS: ACETAMINOPHEN 650 MG/20.3 ML UDC PO PRN ×3 (09:35→22:16)
[2017-01-31] MEDS: ASPIRIN EC 81 MG TABEC PO SCH (09:35)
[2017-01-31] MEDS: LACTOBACILLUS ACIDOPHILUS TAB PO SCH ×2 (09:36→22:16)
[2017-01-31] MEDS: cefTRIAXone INJ 1,000 MG in SODIUM CHLORIDE 0.9% INJ 100 ML IV SCH (10:47)
--- NOTE | 2017-01-31 14:03 | HHI.PR ---
Subjective Remarks Patient reports is feeling okay except for mild headache. Objective Vitals Vital Signs Date Time Temp Pulse Resp B/P (MAP) Pulse Ox O2 Delivery O2 Flow Rate FiO2 01/31/17 12:00 99.5 96 22 122/65 (84) 98 01/31/17 10:29 97 T-piece 5.00 28 01/31/17 08:00 100.3 111 22 149/85 (106) 97 01/31/17 04:00 99.5 102 18 137/84 (101) 84 01/31/17 00:00 98.0 87 20 138/76 (96) 97 01/30/17 20:00 99.2 105 18 158/87 (110) 01/30/17 19:00 101 01/30/17 16:33 100.4 104 22 146/78 (100) 98 I/O 01/30/17 01/30/17 01/30/17 01/31/17 01/31/17 01/31/17 07:00 15:00 23:00 07:00 15:00 23:00 Output Total 850 ml Balance -850 ml Output Urine Total 850 ml # Voids 1 1 Result Diagram: 01/31/17 0459 01/31/17 0459 Objective Remarks GENERAL: This is a well-nourished, well-developed patient, trach in place. No acute distress.. CARDIOVASCULAR: Normal rate and regular rhythm without murmurs, gallops, or rubs. RESPIRATORY: Good respiratory efforts. Breath sounds equal and clear to auscultation bilaterally. GASTROINTESTINAL: Abdomen soft, non-tender, non-distended. Normal active bowel sounds MUSCULOSKELETAL: Extremities without cyanosis, or edema. NEURO: Alert. Moves all ext x4 PSYCH: Appropriate mood and affect. Procedures He was transferred to [facility]. The patient has now been transferred back here to [facility] after being evaluated by neurosurgery there. He had multiple procedures there. 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 He was status post tracheostomy on a trache collar. He has a Dobbhoff tube now in place. He is status post a JOINT SUPERVISOR shunt. May need a G-tube. He has a history of hyponatremia and has been recently placed on aspirin. 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 He is status post multiple neurosurgical procedures including endovascular coiling and ventriculoperitoneal shunt at [facility]. Patient is transferred back to [place] for further care. Subarachnoid hemorrhage/Vertebral artery aneurysm, Status post coiling, ventriculoperitoneal shunt at [facility]. - Neurosurgery following. He has now been re-started on aspirin. On Seroquel for agitation. - JOINT SUPERVISOR shunt dayanara to be removed on 02/03/17. He can be transferred to rehabilitation once bed available and follow-up with Dr. Cassidy. Status post tracheostomy with a trach collar in place. - Consult pulmonology for trach management. Nutrition: Patient currently has a Dobbhoff feeding tube. Failed swallow evaluation. Briefly attempted to discuss feeding tube placement with him. He does not want this at this time. He understands the Dobbhoff is temporary. Speech therapy will continue to follow. We'll continue to discuss the issue with the patient. Hypertension: Continue amlodipine and metoprolol. Fever and abnormal urinalysis: - Start Rocephin. Follow urine and blood cultures. GI prophylaxis: PPI. Stool softener PRN constipation. DVT PPx: Heparin Tania Goel MD Jan 31, 2017 14:03
[2017-01-31] MEDS: [UNRECOGNIZED DRUG - REMARK] DOBHOFF SCH (15:00)
--- NOTE | 2017-01-31 20:12 | MB ---
cc: HOPE ARNETT DATE OF CONSULTATION: 01/31/2017 REASON FOR CONSULTATION: Tracheostomy management HISTORY OF PRESENT ILLNESS The patient is a 56-year-old male with history of subarachnoid bleed, initially admitted at this institution, transferred to [facility] where coiling of intracranial aneurysm was undertaken. The patient had a tracheostomy in place for ventilatory support initially, now is breathing spontaneously with adequate oxygenation. He has no fever or chills, no respiratory difficulty. PAST MEDICAL HISTORY: Subarachnoid bleed as discussed above. ALLERGIES: None known to medication. FAMILY HISTORY: Noncontributory. PAST SURGICAL HISTORY: 1. Right frontal ventriculostomy and drain January 14. 2. Tracheostomy January 22, 2017. 3. Right ventriculoperitoneal shunt on 01/27/2017. MEDICATIONS Medications include: 1. Heparin prophylaxis. 2. Lactobacillus acidophilus 3. Senna as needed. 4. Mycostatin 5. Dulcolax 6. Ecotrin. 7. Norvasc 8. Nebulized albuterol. 9. Tylenol as needed. REVIEW OF SYSTEMS 12-point review of systems as per HPI and past history, otherwise negative. SOCIAL HISTORY Does not smoke or drink. Does not use drugs at present. PHYSICAL EXAMINATION: The patient is alert. VITAL SIGNS: Temperature 98.4, respiratory rate 18, blood pressure 120/60. HEENT: Exam unremarkable. Eyes without icterus. Neck: No adenopathy or thyroid enlargement. Central trachea. Tracheostomy in place. Chest: No dullness to percussion, clear to auscultation. Abdomen: Lax, bowel sounds audible. Extremities: No clubbing, cyanosis or edema. LABORATORY DATA White count 12,000, hemoglobin 9.7, hematocrit 28, platelets 819,000, sodium 135, potassium 3.4, BUN 11, creatinine 0.4. Chest x-ray: 01/30/2017 with minimal atelectatic change left base. IMPRESSION Respiratory failure. Status post tracheostomy. Intracranial bleed, post coil placement for aneurysm. PLAN The patient is doing well. Inspired oxygen fraction at 28% on oxygen saturation at 97%, pulmonary toilet has been undertaken and he is receiving nebulized albuterol at present. His lungs are clear with an attempt to cap his trache and remove when possible. I do thank you for asking me to partake in Mr. Parker's care. MD YVES Rice/JENNY /6:43 PM /7:39 PM
[2017-01-31] MEDS: MUPIROCIN 2% CREAM 15 GM TOPICAL SCH (21:00)
[2017-01-31] MEDS: QUEtiapine FUMARATE 25 MG TAB PO SCH (22:16)
[2017-02-01] VITALS (9 sets, daily range): BP systolic 120–162; BP diastolic 72–97; PULSE 82–107; RESP 16–20; TEMP 99.1–100.1; O2SAT 98–100
[2017-02-01] MEDS: PANTOPRAZOLE SODIUM 40 MG VIAL IV PUSH SCH ×3 (00:21→22:39)
[2017-02-01] MEDS: HEPARIN SODIUM - SQ 10,000 UNITS/ML VIAL SQ SCH ×3 (05:30→22:40)
--- NOTE | 2017-02-01 08:31 | HHI.PR ---
Subjective Remarks alert no distress trach in place, TTube Objective GENERAL: SKIN: Warm and dry. HEAD: Atraumatic. Normocephalic. EYES: Pupils equal and round. No scleral icterus. No injection or drainage. ENT: No nasal bleeding or discharge. Mucous membranes pink and moist. NECK: Trachea midline. No JVD. tracheostomy tube in place CARDIOVASCULAR: Regular rate and rhythm. RESPIRATORY: No accessory muscle use. Clear to auscultation. Breath sounds equal bilaterally. GASTROINTESTINAL: Abdomen soft, non-tender, nondistended. Hepatic and splenic margins not palpable. MUSCULOSKELETAL: Extremities without clubbing, cyanosis, or edema. No obvious deformities. NEUROLOGICAL: Awake and alert. No obvious cranial nerve deficits. Motor grossly within normal limits. Five out of 5 muscle strength in the arms and legs. Normal speech. PSYCHIATRIC: Appropriate mood and affect; insight and judgment normal. Laboratory Tests Test 01/30/17 08:55 01/30/17 14:15 01/31/17 04:59 White Blood Count 16.1 TH/MM3 (4.0-11.0) 12.1 TH/MM3 (4.0-11.0) Red Blood Count 3.24 MIL/MM3 (4.50-5.90) 3.18 MIL/MM3 (4.50-5.90) Hemoglobin 9.5 GM/DL (13.0-17.0) 9.7 GM/DL (13.0-17.0) Hematocrit 29.4 % (39.0-51.0) 28.9 % (39.0-51.0) Platelet Count 880 TH/MM3 (150-450) 819 TH/MM3 (150-450) Mean Platelet Volume 5.9 FL (7.0-11.0) 5.9 FL (7.0-11.0) Neutrophils (%) (Auto) 90.4 % (16.0-70.0) 84.2 % (16.0-70.0) Lymphocytes (%) (Auto) 3.2 % (9.0-44.0) 8.4 % (9.0-44.0) Neutrophils # (Auto) 14.5 TH/MM3 (1.8-7.7) 10.2 TH/MM3 (1.8-7.7) Lymphocytes # (Auto) 0.5 TH/MM3 (1.0-4.8) Random Glucose 171 MG/DL (74-106) 127 MG/DL (74-106) Albumin 2.2 GM/DL (3.4-5.0) 2.3 GM/DL (3.4-5.0) Phosphorus Level 2.4 MG/DL (2.5-4.9) Alkaline Phosphatase 239 U/L (45-117) 260 U/L (45-117) Aspartate Amino Transf (AST/SGOT) 42 U/L (15-37) Alanine Aminotransferase (ALT/SGPT) 145 U/L (12-78) 176 U/L (12-78) Sodium Level 133 MEQ/L (136-145) 135 MEQ/L (136-145) Urine Occult Blood TRACE (NEG) Urine Bacteria MANY /hpf (NONE) Urine Mucus FEW /lpf (OCC) Creatinine 0.46 MG/DL (0.60-1.30) Potassium Level 3.4 MEQ/L (3.5-5.1) Vital Signs Date Time Temp Pulse Resp B/P (MAP) Pulse Ox O2 Delivery O2 Flow Rate FiO2 02/01/17 05:34 99.6 98 18 162/97 (118) 98 02/01/17 00:33 100.1 107 16 124/72 (89) 98 01/31/17 22:11 98 T-piece 6.00 28 01/31/17 21:04 98.1 98 18 138/82 (100) 99 01/31/17 19:00 88 01/31/17 16:00 98.9 92 22 124/76 (92) 98 01/31/17 12:00 99.5 96 22 122/65 (84) 98 01/31/17 10:29 97 T-piece 5.00 28 I/O 01/31/17 01/31/17 01/31/17 02/01/17 02/01/17 02/01/17 07:00 15:00 23:00 07:00 15:00 23:00 # Voids 2 3 Result Diagram: 01/31/17 0459 01/31/17 0459 Assessment and Plan Assessment and Plan respiratory failure s/p0 tracheostomy S/P ICB PLAN O2 NEEDED PULM TOILET REMOVE TRACH WHEN POSSIBLE Katie Wilson MD Feb 01, 2017 08:31
[2017-02-01 09:27] LABS: HEMATOCRIT 29.1 % (39.0-51.0); MEAN CORPUSCULAR HEMOGLOBIN 30.5 PG (27.0-34.0); MEAN CORPUSCULAR HGB CONC 33.5 % (32.0-36.0); PLATELET COUNT 791 TH/MM3 (150-450); RED CELL DISTRIBUTION WIDTH 15.3 % (11.6-17.2); REVIEW FLAG FINAL; WHITE BLOOD COUNT 11.3 TH/MM3 (4.0-11.0)
--- NOTE | 2017-02-01 09:51 | HHI.NSPN ---
(Julio Fox) History Chief Complaint: s/p PEDIATRIC NURSE shunt for hydrocephalus from [facility]. (Julio Fox) Interval History 02/01/17: Pt awake and alert. Nods head to questions. Nods he has some headaches. No n/v. (Julio Fox) Review of Systems General: Negative for: fever, chills, insomnia Respiratory: Negative for: shortness of breath, cough, sputum Cardiovascular: Negative for: chest pain Gastrointestinal: Negative for: nausea, vomitting, diarrhea, constipation ( Julio Fox) Exam Results Vital Signs Date Time Temp Pulse Resp B/P (MAP) Pulse Ox O2 Delivery O2 Flow Rate FiO2 02/01/17 09:39 98 T-piece 5.00 28 02/01/17 05:34 99.6 98 18 162/97 (118) (Julio Fox) Physical Examination Resp: CTA bilaterally Heart: NSR no murmurs Abd: Soft positive bs Skin: Incisions clean and dry scalp and abdomen. No signs of infection or complication. Muscle: Moves all 4 extremities well. Neuro: Pt awake. Pupils 3mm bilaterally reactive bilaterally.Nods head to questions. Follows simple commands well. (Julio Fox) Lab, Micro, Other Results Last Impressions Chest X-Ray 01/30/17 0000 Signed Impressions: Service Date/Time: Monday, January 30, 2017 13:03 - CONCLUSION: 1. Minimal left basilar density slightly improved. 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 He was transferred to [facility] where he underwent endovascular coiling with sacrifice of intradural right vertebral artery. He subsequently underwent a right ventriculoperitoneal shunt. He is now transferred back to [place] for further management. Dr. Cassidy is currently out of town who was his neurosurgeon on initial presentation and we have been consulted for assistance with neurosurgical care. P: At this time patient does not require any acute neurosurgical intervention. We will monitor his ventriculoperitoneal shunt incisions which are currently healing well. Continue with physical therapy, occupational therapy, speech therapy Continue with medical treatment. Rehab placement when medically stable. (Julio Fox) Attending Statement The exam, history, and the medical decision-making described in the above note were completed with the assistance of the mid-level provider. I reviewed and agree with the findings presented. I attest that I had a [id number] encounter with the patient on the same day, and personally performed and documented my assessment and findings in the medical record. Awake and follows commands. Trach in place and mouth words. PEDIATRIC NURSE shunt incision sites with dayanara intact and no erythema or drainage noted. Plan on trach cap per pulmonology along with rehabilitation efforts. (Kehinde Vu MD) Julio Fox Feb 01, 2017 09:51 Kehinde Vu MD Feb 01, 2017 11:13
[2017-02-01 09:59] LABS: BICARBONATE 27.6 MEQ/L (21.0-32.0); POTASSIUM 3.6 MEQ/L (3.5-5.1)
[2017-02-01] MEDS: SENNOSIDES SYRUP 8.8 MG/5 ML CUP PO SCH ×2 (10:11→21:00)
[2017-02-01] MEDS: METOPROLOL TARTRATE 50 MG TAB DOBHOFF SCH (10:11)
[2017-02-01] MEDS: cefTRIAXone INJ 1,000 MG in SODIUM CHLORIDE 0.9% INJ 100 ML IV SCH (10:11)
[2017-02-01] MEDS: ASPIRIN EC 81 MG TABEC PO SCH (10:12)
[2017-02-01] MEDS: LACTOBACILLUS ACIDOPHILUS TAB PO SCH ×2 (10:12→22:40)
[2017-02-01] MEDS: NYSTATIN SUSP 500,000 U/5 ML CUP SWISH-SWAL SCH ×4 (10:16→22:39)
[2017-02-01] MEDS: SODIUM CHLORIDE 0.9% FLUSH 10 ML FLUSH IV FLUSH SCH ×2 (10:16→22:40)
[2017-02-01] MEDS: ACETAMINOPHEN 650 MG/20.3 ML UDC PO PRN (10:25)
[2017-02-01] MEDS: MUPIROCIN 2% CREAM 15 GM TOPICAL SCH ×2 (11:28→21:00)
--- NOTE | 2017-02-01 11:28 | HHI.PR ---
Subjective Remarks Patient reports is feeling okay. He wrote down he has not eaten anything in 2 weeks. Objective Vitals Vital Signs Date Time Temp Pulse Resp B/P (MAP) Pulse Ox O2 Delivery O2 Flow Rate FiO2 02/01/17 09:39 98 T-piece 5.00 28 02/01/17 08:00 99.8 98 18 149/87 (107) 100 02/01/17 05:34 99.6 98 18 162/97 (118) 98 02/01/17 00:33 100.1 107 16 124/72 (89) 98 01/31/17 22:11 98 T-piece 6.00 28 01/31/17 21:04 98.1 98 18 138/82 (100) 99 01/31/17 19:00 88 01/31/17 16:00 98.9 92 22 124/76 (92) 98 01/31/17 12:00 99.5 96 22 122/65 (84) 98 I/O 01/31/17 01/31/17 01/31/17 02/01/17 02/01/17 02/01/17 07:00 15:00 23:00 07:00 15:00 23:00 Output Total 250 ml Balance -250 ml Output Urine Total 250 ml # Voids 2 3 Result Diagram: 02/01/1784002/01/17840 Objective Remarks GENERAL: This is a well-nourished, well-developed patient, trach in place. Copious secretions. No acute distress.. CARDIOVASCULAR: Normal rate and regular rhythm without murmurs, gallops, or rubs. RESPIRATORY: Good respiratory efforts. Breath sounds equal and clear to auscultation bilaterally. GASTROINTESTINAL: Abdomen soft, non-tender, non-distended. Normal active bowel sounds MUSCULOSKELETAL: Extremities without cyanosis, or edema. NEURO: Alert. Moves all ext x4 PSYCH: Appropriate mood and affect. Procedures He was transferred to [facility]. The patient has now been transferred back here to [facility] after being evaluated by neurosurgery there. He had multiple procedures there. 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 He was status post tracheostomy on a trache collar. He has a Dobbhoff tube now in place. He is status post a PROGRAM DIRECTOR SUBSTANCE ABUSE shunt. May need a G-tube. He has a history of hyponatremia and has been recently placed on aspirin. 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 He is status post multiple neurosurgical procedures including endovascular coiling and ventriculoperitoneal shunt at [facility]. Patient is transferred back to [place] for further care. Subarachnoid hemorrhage/Vertebral artery aneurysm, Status post coiling, ventriculoperitoneal shunt at [facility]. - Neurosurgery following. He has now been re-started on aspirin. On Seroquel for agitation. - PROGRAM DIRECTOR SUBSTANCE ABUSE shunt dayanara to be removed on 02/03/17. He can be transferred to rehabilitation once ready and follow-up with Dr. Cassidy. Status post tracheostomy with a trach collar in place. -Appreciate pulmonology following. Trach downsized with plan to eventually remove. Nutrition: Patient currently has a Dobbhoff feeding tube. Failed swallow evaluation. Briefly attempted to discuss feeding tube placement with him. He does not want this at this time. Speech therapy concerned about the amount of secretions. Speech therapy to continue to follow and repeat swallow eval. - Continue feeding through Dobbhoff for now. Hypertension: Continue amlodipine and metoprolol. Fever and abnormal urinalysis: -Continue Rocephin. Follow urine and blood cultures. GI prophylaxis: PPI. Stool softener PRN constipation. DVT PPx: Heparin Discharge Planning Will need rehabilitation. Difficult placement. Tania Goel MD Feb 01, 2017 11:28
[2017-02-01] MEDS: [UNRECOGNIZED DRUG - REMARK] DOBHOFF SCH (14:47)
[2017-02-01] MEDS: QUEtiapine FUMARATE 25 MG TAB PO SCH (22:40)
[2017-02-02] VITALS (10 sets, daily range): BP systolic 115–140; BP diastolic 64–89; PULSE 86–106; RESP 18–20; TEMP 98.1–99.3; O2SAT 92–99
[2017-02-02] MEDS: HEPARIN SODIUM - SQ 10,000 UNITS/ML VIAL SQ SCH ×3 (06:31→23:26)
[2017-02-02 08:10] LABS: HEMATOCRIT 27.1 % (39.0-51.0); MEAN CELL VOLUME 91.4 FL (80.0-100.0); MEAN CORPUSCULAR HEMOGLOBIN 33.3 PG (27.0-34.0); PLATELET COUNT 725 TH/MM3 (150-450); RED BLOOD COUNT 2.97 MIL/MM3 (4.50-5.90); RED CELL DISTRIBUTION WIDTH 15.7 % (11.6-17.2); WHITE BLOOD COUNT 10.3 TH/MM3 (4.0-11.0)
[2017-02-02 08:16] LABS: MEAN CORPUSCULAR HGB CONC 36.4 % (32.0-36.0)
[2017-02-02 08:17] LABS: REVIEW FLAG FINAL
[2017-02-02 08:26] LABS: BICARBONATE 29.1 MEQ/L (21.0-32.0); POTASSIUM 3.8 MEQ/L (3.5-5.1)
[2017-02-02] MEDS: MUPIROCIN 2% CREAM 15 GM TOPICAL SCH ×2 (09:00→23:26)
[2017-02-02] MEDS: SENNOSIDES SYRUP 8.8 MG/5 ML CUP PO SCH ×2 (09:26→23:25)
[2017-02-02] MEDS: NYSTATIN SUSP 500,000 U/5 ML CUP SWISH-SWAL SCH ×4 (09:26→23:25)
[2017-02-02] MEDS: ASPIRIN EC 81 MG TABEC PO SCH (09:27)
[2017-02-02] MEDS: METOPROLOL TARTRATE 50 MG TAB DOBHOFF SCH (09:27)
[2017-02-02] MEDS: LACTOBACILLUS ACIDOPHILUS TAB PO SCH ×2 (09:27→23:31)
[2017-02-02] MEDS: SODIUM CHLORIDE 0.9% FLUSH 10 ML FLUSH IV FLUSH SCH ×2 (09:28→23:26)
[2017-02-02] MEDS: cefTRIAXone INJ 1,000 MG in SODIUM CHLORIDE 0.9% INJ 100 ML IV SCH (09:34)
--- NOTE | 2017-02-02 09:52 | HHI.NSPN ---
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 (Julio Fox) Interval History 02/01/17: Pt awake and alert. Nods head to questions. Nods he has some headaches. No n/v. 02/02/17: Patient awake and alert. Resting comfortably in bed. Mild intermittent headaches. No nausea or vomiting. No chest pain or shortness of breath. Patient called including secretions through trach. (Julio Fox) Review of Systems General: Negative for: fever, chills, insomnia Respiratory: Positive for: cough, sputum, Negative for: shortness of breath Cardiovascular: Negative for: chest pain Gastrointestinal: Negative for: nausea, vomitting, diarrhea, constipation ( Julio Fox) Exam Results Vital Signs Date Time Temp Pulse Resp B/P (MAP) Pulse Ox O2 Delivery O2 Flow Rate FiO2 02/02/17 08:33 95 T-piece 6.00 28 02/02/17 08:00 99.1 102 18 127/82 (97) Intake and Output 02/02/17 02/02/17 02/02/17 07:59 15:59 23:59 Intake Total 825 ml Balance 825 ml (Julio Fox) Physical Examination Resp: CTA bilaterally. Trach T piece on oxygen. No dyspnea or tachypnea. Pt clearing secretions. Heart: NSR no murmurs Abd: Soft positive bs Skin: Incisions clean and dry scalp and abdomen. No signs of infection or complication. Muscle: Moves all 4 extremities well. Neuro: Pt awake. Pupils 3mm bilaterally reactive bilaterally. Nods head to questions. Follows simple commands well. (Julio Fox) Lab, Micro, Other Results Laboratory Tests Test 02/02/17 07:36 White Blood Count 10.3 TH/MM3 Red Blood Count 2.97 MIL/MM3 Hemoglobin 9.9 GM/DL Hematocrit 27.1 % Mean Corpuscular Volume 91.4 FL Mean Corpuscular Hemoglobin 33.3 PG Mean Corpuscular Hemoglobin Concent 36.4 % Red Cell Distribution Width 15.7 % Platelet Count 725 TH/MM3 Mean Platelet Volume 6.0 FL Blood Urea Nitrogen 14 MG/DL Creatinine 0.57 MG/DL Random Glucose 138 MG/DL Calcium Level 8.8 MG/DL Sodium Level 139 MEQ/L Potassium Level 3.8 MEQ/L Chloride Level 102 MEQ/L Carbon Dioxide Level 29.1 MEQ/L Anion Gap 8 MEQ/L Estimat Glomerular Filtration Rate 148 ML/MIN (Julio Fox) Medical Decision Making Impression and Plan A: 56-year-old male with a history of acute 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 He was transferred to [facility] where he underwent endovascular coiling with sacrifice of intradural right vertebral artery. He subsequently underwent a right ventriculoperitoneal shunt. He is now transferred back to [place] for further management. Dr. Cassidy is currently out of town who was his neurosurgeon on initial presentation and we have been consulted for assistance with neurosurgical care. P: At this time patient does not require any acute neurosurgical intervention. We will monitor his ventriculoperitoneal shunt incisions which are currently healing well. Remove dayanara tomorrow. Continue with physical therapy, occupational therapy, speech therapy Continue with medical treatment. Rehab placement when medically stable. (Julio Fox) Attending Statement The exam, history, and the medical decision-making described in the above note were completed with the assistance of the mid-level provider. I reviewed and agree with the findings presented. I attest that I had a [id number] encounter with the patient on the same day, and personally performed and documented my assessment and findings in the medical record. (Kehinde Vu MD) Julio Fox Feb 02, 2017 09:52 Kehinde Vu MD Feb 02, 2017 13:15
--- NOTE | 2017-02-02 13:13 | HHI.PR ---
Subjective Remarks Patient still having copious amount of secretions. He complained of a mild headache. Objective Vitals Vital Signs Date Time Temp Pulse Resp B/P (MAP) Pulse Ox O2 Delivery O2 Flow Rate FiO2 02/02/17 12:00 98.7 86 18 115/64 (81) 97 02/02/17 08:33 95 T-piece 6.00 28 02/02/17 08:00 99.1 102 18 127/82 (97) 99 02/02/17 08:00 99 02/02/17 04:00 98.1 106 20 118/71 (87) 92 02/02/17 04:00 18 02/02/17 01:05 98 T-piece 6.00 28 02/02/17 00:00 99.3 97 18 127/87 (100) 98 02/01/17 20:27 98 T-piece 6.00 28 02/01/17 20:00 99.5 97 20 133/84 (100) 98 02/01/17 18:34 93 02/01/17 16:00 99.2 92 18 137/81 (99) 98 I/O 02/01/17 02/01/17 02/01/17 02/02/17 02/02/17 02/02/17 06:59 14:59 22:59 06:59 14:59 22:59 Intake Total 100 ml 419 ml 825 ml 260 ml Output Total 250 ml 400 ml Balance -150 ml 19 ml 825 ml 260 ml Intake IV Total 100 ml 100 ml Tube Feeding 419 ml 765 ml Other 60 ml 160 ml Output Urine Total 250 ml 400 ml # Voids 3 Result Diagram: 02/02/17 0736 02/02/17 0736 Objective Remarks GENERAL: This is a well-nourished, well-developed patient, trach in place. Copious secretions. No acute distress.. CARDIOVASCULAR: Normal rate and regular rhythm without murmurs, gallops, or rubs. RESPIRATORY: Good respiratory efforts. Breath sounds equal and clear to auscultation bilaterally. GASTROINTESTINAL: Abdomen soft, non-tender, non-distended. Normal active bowel sounds MUSCULOSKELETAL: Extremities without cyanosis, or edema. NEURO: Alert. Moves all ext x4 PSYCH: Appropriate mood and affect. Procedures He was transferred to [facility]. The patient has now been transferred back here to [facility] after being evaluated by neurosurgery there. He had multiple procedures there. 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 He was status post tracheostomy on a trache collar. He has a Dobbhoff tube now in place. He is status post a MEDICAL ASSISTANT DERMATOLOGY shunt. May need a G-tube. He has a history of hyponatremia and has been recently placed on aspirin. 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 He is status post multiple neurosurgical procedures including endovascular coiling and ventriculoperitoneal shunt at [facility]. Patient is transferred back to [place] for further care. Subarachnoid hemorrhage/Vertebral artery aneurysm, Status post coiling, ventriculoperitoneal shunt at [facility]. - Neurosurgery following. He has now been re-started on aspirin. On Seroquel for agitation. - MEDICAL ASSISTANT DERMATOLOGY shunt dayanara to be removed on 02/03/17. He can be transferred to rehabilitation once ready and follow-up with Dr. Cassidy. Status post tracheostomy with a trach collar in place. -Appreciate pulmonology following. Trach downsized with plan to eventually remove. - Add breathing treatment. RT to suction. Levsin PRN to help with secretions. Nutrition: Patient currently has a Dobbhoff feeding tube. Failed swallow evaluation. Briefly attempted to discuss feeding tube placement with him. He does not want this at this time. Speech therapy concerned about the amount of secretions. Speech therapy to continue to follow and repeat swallow eval. - Continue feeding through Dobbhoff for now. - Too much secretions for swallow eval per speech. Hypertension: Continue amlodipine and metoprolol. Fever and abnormal urinalysis: -Continue Rocephin. Follow urine and blood cultures. GI prophylaxis: PPI. Stool softener PRN constipation. DVT PPx: Heparin Discharge Planning Will need rehabilitation. Difficult placement. Tania Goel MD Feb 02, 2017 13:13
[2017-02-02] MEDS: [UNRECOGNIZED DRUG - REMARK] DOBHOFF SCH (15:00)
--- NOTE | 2017-02-02 17:10 | HHI.PR ---
Subjective Remarks alert no distress trach in place, TTube Objective Vital Signs Date Time Temp Pulse Resp B/P (MAP) Pulse Ox O2 Delivery O2 Flow Rate FiO2 02/02/17 16:00 98.6 93 18 123/84 (97) 98 02/02/17 12:00 98.7 86 18 115/64 (81) 97 02/02/17 08:33 95 T-piece 6.00 28 02/02/17 08:00 99.1 102 18 127/82 (97) 99 02/02/17 08:00 99 02/02/17 04:00 98.1 106 20 118/71 (87) 92 02/02/17 04:00 18 02/02/17 01:05 98 T-piece 6.00 28 02/02/17 00:00 99.3 97 18 127/87 (100) 98 02/01/17 20:27 98 T-piece 6.00 28 02/01/17 20:00 99.5 97 20 133/84 (100) 98 02/01/17 18:34 93 I/O 02/01/17 02/01/17 02/01/17 02/02/17 02/02/17 02/02/17 07:00 15:00 23:00 07:00 15:00 23:00 Intake Total 100 ml 419 ml 825 ml 260 ml Output Total 250 ml 400 ml 225 ml Balance -150 ml 19 ml 825 ml 35 ml Intake IV Total 100 ml 100 ml Tube Feeding 419 ml 765 ml Other 60 ml 160 ml Output Urine Total 250 ml 400 ml 225 ml # Voids 3 # Bowel Movements 1 Result Diagram: 02/02/17 0736 02/02/17 0736 Medications and IVs GENERAL: SKIN: Warm and dry. HEAD: Atraumatic. Normocephalic. EYES: Pupils equal and round. No scleral icterus. No injection or drainage. ENT: No nasal bleeding or discharge. Mucous membranes pink and moist. NECK: Trachea midline. No JVD. CARDIOVASCULAR: Regular rate and rhythm. RESPIRATORY: No accessory muscle use. Clear to auscultation. Breath sounds equal bilaterally. GASTROINTESTINAL: Abdomen soft, non-tender, nondistended. Hepatic and splenic margins not palpable. MUSCULOSKELETAL: Extremities without clubbing, cyanosis, or edema. No obvious deformities. NEUROLOGICAL: Awake and alert. No obvious cranial nerve deficits. Motor grossly within normal limits. Five out of 5 muscle strength in the arms and legs. Normal speech. PSYCHIATRIC: Appropriate mood and affect; insight and judgment normal. Assessment and Plan Assessment and Plan respiratory failure s/p0 tracheostomy S/P ICB PLAN O2 NEEDED PULM TOILET REMOVE TRACH WHEN POSSIBLE Katie Wilson MD Feb 02, 2017 17:10
[2017-02-02] MEDS: RESP: ALBUTEROL 2.5 MG/IPRATROPIUM 0.5 MG NEB (SCH) NEB (21:45)
[2017-02-02] MEDS: QUEtiapine FUMARATE 25 MG TAB PO SCH (23:25)
[2017-02-02] MEDS: HYOSCYAMINE 0.125 MG TAB PO PRN (23:25)
[2017-02-02] MEDS: PANTOPRAZOLE SODIUM 40 MG VIAL IV PUSH SCH (23:31)
[2017-02-03] VITALS (10 sets, daily range): BP systolic 117–146; BP diastolic 74–97; PULSE 93–102; RESP 16–19; TEMP 98.2–98.8; O2SAT 95–100
[2017-02-03] MEDS: HEPARIN SODIUM - SQ 10,000 UNITS/ML VIAL SQ SCH ×3 (05:33→20:53)
[2017-02-03] MEDS: HYOSCYAMINE 0.125 MG TAB PO PRN ×4 (05:34→20:53)
[2017-02-03] MEDS: NYSTATIN SUSP 500,000 U/5 ML CUP SWISH-SWAL SCH ×4 (08:24→20:53)
[2017-02-03] MEDS: METOPROLOL TARTRATE 50 MG TAB DOBHOFF SCH (08:25)
[2017-02-03] MEDS: ASPIRIN EC 81 MG TABEC PO SCH (08:25)
[2017-02-03] MEDS: LACTOBACILLUS ACIDOPHILUS TAB PO SCH ×2 (08:25→20:56)
[2017-02-03] MEDS: SENNOSIDES SYRUP 8.8 MG/5 ML CUP PO SCH ×3 (08:25→21:00)
[2017-02-03] MEDS: SODIUM CHLORIDE 0.9% FLUSH 10 ML FLUSH IV FLUSH SCH ×2 (08:26→21:01)
[2017-02-03] MEDS: MUPIROCIN 2% CREAM 15 GM TOPICAL SCH ×2 (08:26→21:43)
--- NOTE | 2017-02-03 08:28 | HHI.PR ---
Subjective Remarks alert no distress trach in place, TTubeFENESTRATED TRACH NOT PLACED YET ORDER PLACED THE 22ND Objective Vital Signs Date Time Temp Pulse Resp B/P (MAP) Pulse Ox O2 Delivery O2 Flow Rate FiO2 02/03/17 05:01 98.3 98 16 131/83 (99) 95 02/03/17 00:11 98.4 93 18 128/76 (93) 97 02/02/17 21:48 99 T-piece 6.00 28 02/02/17 20:48 98.2 96 18 140/89 (106) 99 02/02/17 19:43 96 02/02/17 16:00 98.6 93 18 123/84 (97) 98 02/02/17 12:00 98.7 86 18 115/64 (81) 97 02/02/17 08:33 95 T-piece 6.00 28 I/O 02/02/17 02/02/17 02/02/17 02/03/17 02/03/17 02/03/17 07:00 15:00 23:00 07:00 15:00 23:00 Intake Total 825 ml 260 ml Output Total 225 ml Balance 825 ml 35 ml Intake IV Total 100 ml Tube Feeding 765 ml Other 60 ml 160 ml Output Urine Total 225 ml # Bowel Movements 1 Result Diagram: 02/02/1736 02/02/1736 Objective Remarks GENERAL: SKIN: Warm and dry. HEAD: Atraumatic. Normocephalic. EYES: Pupils equal and round. No scleral icterus. No injection or drainage. ENT: No nasal bleeding or discharge. Mucous membranes pink and moist. NECK: Trachea midline. No JVD. CARDIOVASCULAR: Regular rate and rhythm. RESPIRATORY: No accessory muscle use. Clear to auscultation. Breath sounds equal bilaterally. GASTROINTESTINAL: Abdomen soft, non-tender, nondistended. Hepatic and splenic margins not palpable. MUSCULOSKELETAL: Extremities without clubbing, cyanosis, or edema. No obvious deformities. NEUROLOGICAL: Awake and alert. No obvious cranial nerve deficits. Motor grossly within normal limits. Five out of 5 muscle strength in the arms and legs. Normal speech. PSYCHIATRIC: Appropriate mood and affect; insight and judgment normal. Assessment and Plan Assessment and Plan respiratory failure s/p0 tracheostomy S/P ICB PLAN O2 NEEDED PULM TOILET REMOVE TRACH WHEN POSSIBLE Katie Wilson MD Feb 03, 2017 08:28
[2017-02-03] MEDS: RESP: ALBUTEROL 2.5 MG/IPRATROPIUM 0.5 MG NEB (SCH) NEB ×3 (10:09→22:29)
[2017-02-03] MEDS: cefTRIAXone INJ 1,000 MG in SODIUM CHLORIDE 0.9% INJ 100 ML IV SCH (10:13)
[2017-02-03] MEDS: ACETAMINOPHEN 650 MG/20.3 ML UDC PO PRN ×2 (10:43→20:53)
--- NOTE | 2017-02-03 12:55 | HHI.PR ---
Subjective Remarks Patient has no new complaints. Trach was downsized. Discussed with his at bedside. He is having less secretions. Objective Vitals Vital Signs Date Time Temp Pulse Resp B/P (MAP) Pulse Ox O2 Delivery O2 Flow Rate FiO2 02/03/17 11:49 16 02/03/17 10:11 97 T-piece 6.00 28 02/03/17 08:58 96 02/03/17 08:00 98.8 97 18 131/82 (98) 98 02/03/17 05:01 98.3 98 16 131/83 (99) 95 02/03/17 00:11 98.4 93 18 128/76 (93) 97 02/02/17 21:48 99 T-piece 6.00 28 02/02/17 20:48 98.2 96 18 140/89 (106) 99 02/02/17 19:43 96 02/02/17 16:00 98.6 93 18 123/84 (97) 98 I/O 02/02/17 02/02/17 02/02/17 02/03/17 02/03/17 02/03/17 07:00 15:00 23:00 07:00 15:00 23:00 Intake Total 825 ml 260 ml 180 ml Output Total 225 ml Balance 825 ml 35 ml 180 ml Intake IV Total 100 ml 100 ml Tube Feeding 765 ml Other 60 ml 160 ml 80 ml Output Urine Total 225 ml # Bowel Movements 1 Result Diagram: 02/02/1736 02/02/17 0736 Objective Remarks GENERAL: This is a well-nourished, well-developed patient, trach in place. No acute distress.. CARDIOVASCULAR: Normal rate and regular rhythm without murmurs, gallops, or rubs. RESPIRATORY: Good respiratory efforts. Breath sounds equal and clear to auscultation bilaterally. GASTROINTESTINAL: Abdomen soft, non-tender, non-distended. Normal active bowel sounds MUSCULOSKELETAL: Extremities without cyanosis, or edema. NEURO: Alert. Moves all ext x4 PSYCH: Appropriate mood and affect. Procedures He was transferred to [facility]. The patient has now been transferred back here to [facility] after being evaluated by neurosurgery there. He had multiple procedures there. 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 He was status post tracheostomy on a trache collar. He has a Dobbhoff tube now in place. He is status post a COTTON BALL BAGGER shunt. May need a G-tube. He has a history of hyponatremia and has been recently placed on aspirin. 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 He is status post multiple neurosurgical procedures including endovascular coiling and ventriculoperitoneal shunt at [facility]. Patient is transferred back to [place] for further care. Subarachnoid hemorrhage/Vertebral artery aneurysm, Status post coiling, ventriculoperitoneal shunt at [facility]. - Neurosurgery following. He has now been re-started on aspirin. On Seroquel for agitation. - COTTON BALL BAGGER shunt dayanara to be removed today per neurosurgery. He can be transferred to rehabilitation once ready and follow-up with Dr. Cassidy. Status post tracheostomy with a trach collar in place. -Appreciate pulmonology following. Trach downsized with plan to eventually remove. - breathing treatment. RT to suction. Levsin PRN to help with secretions. Secretions improved. Nutrition: Patient currently has a Dobbhoff feeding tube. Failed swallow evaluation. Discussed feeding tube placement with patient and his . They do not want this at this time. Per speech therapy, too much secretions for swallow eval. Speech therapy to continue to follow and repeat swallow eval. - Continue feeding through Dobbhoff for now. Hypertension: Continue amlodipine and metoprolol. Fever and abnormal urinalysis: Fever resolved. Urine culture is negative. Discontinue Rocephin. GI prophylaxis: PPI. Stool softener PRN constipation. DVT PPx: Heparin Discharge Planning Will need rehabilitation. Difficult placement. Tania Goel MD Feb 03, 2017 12:55
--- NOTE | 2017-02-03 13:21 | HHI.NSPN ---
(Julio Fox) History Chief Complaint: s/p CADDYMASTER shunt for hydrocephalus from [facility]. (Julio Fox) Interval History 02/01/17: Pt awake and alert. Nods head to questions. Nods he has some headaches. No n/v. 02/02/17: Patient awake and alert. Resting comfortably in bed. Mild intermittent headaches. No nausea or vomiting. No chest pain or shortness of breath. Patient called including secretions through trach. 02/03/17: Patient is awake and alert. Complains of intermittent headaches. Also has double vision which has been since admission. Patient still has coughing and secretions which is clearing through his trach T piece. No nausea vomiting. (Julio Fox) Review of Systems General: Negative for: fever, chills, insomnia Respiratory: Positive for: cough, sputum, Negative for: shortness of breath Cardiovascular: Negative for: chest pain Gastrointestinal: Negative for: nausea, vomitting, diarrhea, constipation ( Julio Fox) Exam Results Vital Signs Date Time Temp Pulse Resp B/P (MAP) Pulse Ox O2 Delivery O2 Flow Rate FiO2 02/03/17 11:49 16 02/03/17 10:11 97 T-piece 6.00 28 02/03/17 08:58 96 02/03/17 08:00 98.8 131/82 (98) Intake and Output 02/03/17 02/03/17 02/04/17 08:00 16:00 00:00 Intake Total 180 ml Balance 180 ml (Julio Fox) Physical Examination Resp: CTA bilaterally. Trach T piece on oxygen. No dyspnea or tachypnea. Pt clearing secretions. Heart: NSR no murmurs Abd: Soft positive bs Skin: Incisions clean and dry scalp and abdomen. No signs of infection or complication. Muscle: Moves all 4 extremities well. Neuro: Pt awake. Pupils 3mm bilaterally reactive bilaterally. Nods head to questions. Follows simple commands well. (Julio Fox) Lab, Micro, Other Results Last Impressions Chest X-Ray 8/21/17 0000 Signed Impressions: Service Date/Time: Monday, January 30, 2017 13:03 - CONCLUSION: 1. Minimal left basilar density slightly improved. 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 He was transferred to [facility] where he underwent endovascular coiling with sacrifice of intradural right vertebral artery. He subsequently underwent a right ventriculoperitoneal shunt. He is now transferred back to [place] for further management. Dr. Cassidy is currently out of town who was his neurosurgeon on initial presentation and we have been consulted for assistance with neurosurgical care. P: At this time patient does not require any acute neurosurgical intervention. We will monitor his ventriculoperitoneal shunt incisions which are currently healing well. Continue with physical therapy, occupational therapy, speech therapy Continue with medical treatment. Rehab placement when medically stable. (Julio Fox) Attending Statement The exam, history, and the medical decision-making described in the above note were completed with the assistance of the mid-level provider. I reviewed and agree with the findings presented. I attest that I had a atim-yn-oznh encounter with the patient on the same day, and personally performed and documented my assessment and findings in the medical record. (Kehinde Vu MD) Julio Fox Feb 03, 2017 13:21 Kehinde Vu MD Feb 03, 2017 13:40
[2017-02-03] MEDS: [UNRECOGNIZED DRUG - REMARK] DOBHOFF SCH (15:00)
[2017-02-03] MEDS: QUEtiapine FUMARATE 25 MG TAB PO SCH (20:55)
[2017-02-04] VITALS (9 sets, daily range): BP systolic 123–147; BP diastolic 79–92; PULSE 93–100; RESP 17–20; TEMP 97.9–98.9; O2SAT 95–98
[2017-02-04] MEDS: PANTOPRAZOLE SODIUM 40 MG VIAL IV PUSH SCH (02:18)
[2017-02-04] MEDS: ACETAMINOPHEN 650 MG/20.3 ML UDC PO PRN ×3 (02:31→16:46)
[2017-02-04] MEDS: HEPARIN SODIUM - SQ 10,000 UNITS/ML VIAL SQ SCH ×3 (07:00→21:43)
[2017-02-04] MEDS: RESP: ALBUTEROL 2.5 MG/IPRATROPIUM 0.5 MG NEB (SCH) NEB ×2 (08:00→22:52)
[2017-02-04] MEDS: ASPIRIN EC 81 MG TABEC PO SCH (08:52)
[2017-02-04] MEDS: METOPROLOL TARTRATE 50 MG TAB DOBHOFF SCH (08:52)
[2017-02-04] MEDS: LACTOBACILLUS ACIDOPHILUS TAB PO SCH ×2 (08:52→21:42)
[2017-02-04] MEDS: MUPIROCIN 2% CREAM 15 GM TOPICAL SCH ×2 (08:53→21:44)
[2017-02-04] MEDS: SENNOSIDES SYRUP 8.8 MG/5 ML CUP PO SCH ×2 (08:53→21:43)
[2017-02-04] MEDS: NYSTATIN SUSP 500,000 U/5 ML CUP SWISH-SWAL SCH ×4 (08:53→21:43)
[2017-02-04] MEDS: SODIUM CHLORIDE 0.9% FLUSH 10 ML FLUSH IV FLUSH SCH ×2 (08:53→21:43)
--- NOTE | 2017-02-04 13:21 | HHI.PR ---
Subjective Remarks Trach is capped. Patient is managing his secretions. He is now talking. He is oriented. Objective Vitals Vital Signs Date Time Temp Pulse Resp B/P (MAP) Pulse Ox O2 Delivery O2 Flow Rate FiO2 02/04/17 12:00 98.9 96 18 129/81 (97) 97 02/04/17 08:00 98.6 95 18 123/81 (95) 96 02/04/17 06:19 97.9 96 19 147/92 (110) 96 02/04/17 02:58 93 02/04/17 01:42 98.8 97 19 127/79 (95) 98 02/03/17 22:29 95 21 02/03/17 21:02 98.4 102 19 146/97 (113) 98 02/03/17 16:00 98.2 97 18 117/74 (88) 95 I/O 02/03/17 02/03/17 02/03/17 02/04/17 02/04/17 02/04/17 07:00 15:00 23:00 07:00 15:00 23:00 Intake Total 180 ml 639 ml 60 ml 1460 ml Output Total 325 ml 100 ml 225 ml Balance 180 ml 314 ml -40 ml 1235 ml Intake IV Total 100 ml Tube Feeding 559 ml 660 ml Tube Irrigant 60 ml Other 80 ml 80 ml 800 ml Output Urine Total 325 ml 100 ml 225 ml # Voids 2 1 Result Diagram: 02/02/1736 02/02/17 0736 Objective Remarks GENERAL: This is a well-nourished, well-developed patient, trach capped, in place. No acute distress.. CARDIOVASCULAR: Normal rate and regular rhythm without murmurs, gallops, or rubs. RESPIRATORY: Good respiratory efforts. Breath sounds equal and clear to auscultation bilaterally. GASTROINTESTINAL: Abdomen soft, non-tender, non-distended. Normal active bowel sounds MUSCULOSKELETAL: Extremities without cyanosis, or edema. NEURO: Alert. Moves all ext x4 PSYCH: Appropriate mood and affect. Procedures He was transferred to [facility]. The patient has now been transferred back here to [facility] after being evaluated by neurosurgery there. He had multiple procedures there. 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 He was status post tracheostomy on a trache collar. He has a Dobbhoff tube now in place. He is status post a RN REFERRAL shunt. May need a G-tube. He has a history of hyponatremia and has been recently placed on aspirin. 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 He is status post multiple neurosurgical procedures including endovascular coiling and ventriculoperitoneal shunt at [facility]. Patient is transferred back to [place] for further care. Subarachnoid hemorrhage/Vertebral artery aneurysm, Status post coiling, ventriculoperitoneal shunt at [facility]. - Neurosurgery following. He has now been re-started on aspirin. On Seroquel for agitation. -Per neurosurgery, once stable, He can be transferred to rehabilitation and follow-up with Dr. Cassidy. Status post tracheostomy with a trach collar in place. -Appreciate pulmonology following. Trach is. Progressing well.. - breathing treatment. Suction as needed. Patient is managing secretions well. Secretions decreased since Levsin started. Levsin PRN to help with secretions. Nutrition: Patient currently has a Dobbhoff feeding tube. Previously discussed feeding tube placement with patient and his . They do not want this at this time. Per speech therapy, too much secretions for swallow eval. Speech therapy to continue to follow and repeat swallow eval. - Continue feeding through Dobbhoff for now. Speech therapy to repeat swallow eval today if appropriate. Discussed with RN. Hypertension: Continue amlodipine and metoprolol. Fever and abnormal urinalysis: Fever resolved. Urine culture is negative. Rocephin discontinued. GI prophylaxis: PPI. Stool softener PRN constipation. DVT PPx: Heparin Discharge Planning Will need rehabilitation. Difficult placement. Ideally [place] rehabilitation. Tania Goel MD Feb 04, 2017 13:21
[2017-02-04] MEDS: [UNRECOGNIZED DRUG - REMARK] DOBHOFF SCH (16:15)
[2017-02-04] MEDS: QUEtiapine FUMARATE 25 MG TAB PO SCH (21:43)
[2017-02-05] VITALS (8 sets, daily range): BP systolic 124–142; BP diastolic 61–92; PULSE 81–105; RESP 16–20; TEMP 98.2–99.2; O2SAT 95–96
[2017-02-05] MEDS: PANTOPRAZOLE SODIUM 40 MG VIAL IV PUSH SCH ×2 (03:56→23:15)
[2017-02-05] MEDS: HEPARIN SODIUM - SQ 10,000 UNITS/ML VIAL SQ SCH ×3 (05:58→21:09)
[2017-02-05] MEDS: MUPIROCIN 2% CREAM 15 GM TOPICAL SCH ×2 (08:56→21:09)
[2017-02-05] MEDS: LACTOBACILLUS ACIDOPHILUS TAB PO SCH ×2 (08:56→21:03)
[2017-02-05] MEDS: ASPIRIN EC 81 MG TABEC PO SCH (08:56)
[2017-02-05] MEDS: METOPROLOL TARTRATE 50 MG TAB DOBHOFF SCH (08:56)
[2017-02-05] MEDS: SENNOSIDES SYRUP 8.8 MG/5 ML CUP PO SCH ×2 (08:56→21:09)
[2017-02-05] MEDS: NYSTATIN SUSP 500,000 U/5 ML CUP SWISH-SWAL SCH ×4 (08:56→21:09)
[2017-02-05] MEDS: SODIUM CHLORIDE 0.9% FLUSH 10 ML FLUSH IV FLUSH SCH ×2 (09:00→21:03)
[2017-02-05] MEDS: ACETAMINOPHEN 650 MG/20.3 ML UDC PO PRN (13:10)
[2017-02-05] MEDS ORDERED: PILL SPLITTER OTHER PRN (14:30)
--- NOTE | 2017-02-05 14:46 | HHI.PR ---
Subjective Remarks Patient reports he is doing okay. Discussed with RN and respiratory therapist. Trach removed during my evaluation. Patient is doing well. Objective Vitals Vital Signs Date Time Temp Pulse Resp B/P (MAP) Pulse Ox O2 Delivery O2 Flow Rate FiO2 02/05/17 12:00 98.9 81 16 133/61 (85) 96 02/05/17 10:11 100 02/05/17 08:00 98.8 102 16 138/89 (105) 95 02/05/17 04:00 98.7 102 20 139/82 (101) 95 02/05/17 00:00 98.2 105 20 142/92 (109) 96 02/04/17 22:54 98 02/04/17 20:55 93 02/04/17 20:00 98.9 98 20 136/85 (102) 95 02/04/17 16:00 98.9 100 17 145/90 (108) 95 I/O 02/04/17 02/04/17 02/04/17 02/05/17 02/05/17 02/05/17 06:59 14:59 22:59 06:59 14:59 22:59 Intake Total 60 ml 2005 ml 923 ml Output Total 100 ml 1050 ml 300 ml Balance -40 ml 955 ml 623 ml Tube Feeding 1045 ml 683 ml Tube Irrigant 60 ml Other 960 ml 240 ml Output Urine Total 100 ml 1050 ml 300 ml # Voids 1 # Bowel Movements 1 1 Result Diagram: 02/02/17 0736 02/02/17 0736 Objective Remarks GENERAL: This is a well-nourished, well-developed patient. No acute distress.. CARDIOVASCULAR: Normal rate and regular rhythm without murmurs, gallops, or rubs. RESPIRATORY: Good respiratory efforts. Breath sounds equal and clear to auscultation bilaterally. GASTROINTESTINAL: Abdomen soft, non-tender, non-distended. Normal active bowel sounds MUSCULOSKELETAL: Extremities without cyanosis, or edema. NEURO: Alert. Moves all ext x4. Generally weak. PSYCH: Appropriate mood and affect. Procedures He was transferred to [facility]. The patient has now been transferred back here to [facility] after being evaluated by neurosurgery there. He had multiple procedures there. 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 He was status post tracheostomy on a trache collar. He has a Dobbhoff tube now in place. He is status post a ELECTROMECHANIC shunt. May need a G-tube. He has a history of hyponatremia and has been recently placed on aspirin. 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 He is status post multiple neurosurgical procedures including endovascular coiling and ventriculoperitoneal shunt at [facility]. Patient is transferred back to [place] for further care. Subarachnoid hemorrhage/Vertebral artery aneurysm, Status post coiling, ventriculoperitoneal shunt at [facility]. - Neurosurgery following. He has now been re-started on aspirin. On Seroquel for agitation. -Per neurosurgery, once stable, He can be transferred to rehabilitation and follow-up with Dr. Cassidy. Status post tracheostomy with a trach collar in place. -Appreciate pulmonology following. Trach removed today 02/05/17. Progressing well.. - breathing treatment. Suction as needed. Patient is managing secretions well. Secretions decreased since Levsin started. Levsin PRN to help with secretions. Nutrition: Patient currently has a Dobbhoff feeding tube. Previously discussed feeding tube placement with patient and his . They do not want this. Per speech therapy, too much secretions for swallow eval. Speech therapy to continue to follow and repeat swallow eval. - Continue feeding through Dobbhoff for now. - Discussed with RN. Speech therapy to evaluate again today for swallowing. Hypertension: Continue amlodipine and metoprolol. Fever and abnormal urinalysis: Fever resolved. Urine culture is negative. Rocephin discontinued. GI prophylaxis: PPI. Stool softener PRN constipation. DVT PPx: Heparin Discharge Planning Will need rehabilitation. Difficult placement. Ideally [place] rehabilitation. Tania Goel MD Feb 05, 2017 2:45 pm
[2017-02-05] MEDS: [UNRECOGNIZED DRUG - REMARK] DOBHOFF SCH (15:01)
[2017-02-05] MEDS: QUEtiapine FUMARATE 25 MG TAB PO SCH (21:03)
[2017-02-05] MEDS: RESP: ALBUTEROL 2.5 MG/IPRATROPIUM 0.5 MG NEB (SCH) NEB (21:11)
[2017-02-06] VITALS (8 sets, daily range): BP systolic 128–152; BP diastolic 83–97; PULSE 89–106; RESP 18–20; TEMP 97.8–99; O2SAT 94–97
[2017-02-06] MEDS: HEPARIN SODIUM - SQ 10,000 UNITS/ML VIAL SQ SCH ×3 (06:14→23:04)
--- NOTE | 2017-02-06 08:50 | HHI.NSPN ---
History Chief Complaint: s/p MAIL OPENER shunt for hydrocephalus from [facility]. Interval History 02/01/17: Pt awake and alert. Nods head to questions. Nods he has some headaches. No n/v. 02/02/17: Patient awake and alert. Resting comfortably in bed. Mild intermittent headaches. No nausea or vomiting. No chest pain or shortness of breath. Patient called including secretions through trach. 02/03/17: Patient is awake and alert. Complains of intermittent headaches. Also has double vision which has been since admission. Patient still has coughing and secretions which is clearing through his trach T piece. No nausea vomiting. 02/06/17: Pt awake and alert. Complains of headaches and double vision but stable not getting worse. Pt with trach out and verbalizing. He is off oxygen. NG tube remains. Review of Systems General: Negative for: fever, chills, insomnia Respiratory: Negative for: shortness of breath, cough, sputum Cardiovascular: Negative for: chest pain Gastrointestinal: Negative for: nausea, vomitting, diarrhea, constipation Exam Results Vital Signs Date Time Temp Pulse Resp B/P (MAP) Pulse Ox O2 Delivery O2 Flow Rate FiO2 02/06/17 08:19 97.8 104 18 128/84 (99) 96 02/05/17 21:17 21 02/03/17 13:00 6.00 02/03/17 10:11 T-piece Intake and Output 02/06/17 02/06/17 02/06/17 07:59 15:59 23:59 Output Total 275 ml Balance -275 ml Physical Examination Resp: CTA bilaterally. No dyspnea or tachypnea. Off oxygen. Heart: NSR no murmurs Abd: Soft positive bs Skin: Incisions clean and dry scalp and abdomen. No signs of infection or complication. All dayanara have been removed. Muscle: Moves all 4 extremities well. Neuro: Pt awake. Pupils 3mm bilaterally reactive bilaterally. Verbalizing well. Follows simple commands well. 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 He was transferred to [facility] where he underwent endovascular coiling with sacrifice of intradural right vertebral artery. He subsequently underwent a right ventriculoperitoneal shunt. He is now transferred back to [place] for further management. Dr. Cassidy is currently out of town who was his neurosurgeon on initial presentation and we have been consulted for assistance with neurosurgical care. P: At this time patient does not require any acute neurosurgical intervention. We will monitor his ventriculoperitoneal shunt incisions which are currently healing well. Continue with physical therapy, occupational therapy, speech therapy Continue with medical treatment. Rehab placement when medically stable. Ventriculostomy drain suture was removed. All dayanara have been previously removed. Julio Fox Feb 06, 2017 08:50
--- NOTE | 2017-02-06 09:00 | HHI.PR ---
Subjective Remarks alert no distress Trach. removed well tolerated ORDER PLACED THE 22ND Objective Vital Signs Date Time Temp Pulse Resp B/P (MAP) Pulse Ox O2 Delivery O2 Flow Rate FiO2 02/06/17 08:19 97.8 104 18 128/84 (99) 96 02/06/17 04:00 98.2 103 20 132/87 (102) 96 02/06/17 00:00 98.2 105 20 144/85 (104) 95 02/05/17 21:53 100 02/05/17 21:17 95 21 02/05/17 20:00 98.6 101 18 126/78 (94) 96 02/05/17 20:00 99.2 99 18 124/81 (95) 95 02/05/17 12:00 98.9 81 16 133/61 (85) 96 02/05/17 10:11 100 I/O 02/05/17 02/05/17 02/05/17 02/06/17 02/06/17 02/06/17 06:59 14:59 22:59 06:59 14:59 22:59 Intake Total 923 ml 1169 ml Output Total 300 ml 275 ml Balance 623 ml 1169 ml -275 ml Tube Feeding 683 ml 1089 ml Other 240 ml 80 ml Output Urine Total 300 ml 275 ml # Voids 1 Result Diagram: 02/02/1773502/02/17735 Objective Remarks GENERAL: SKIN: Warm and dry. HEAD: Atraumatic. Normocephalic. EYES: Pupils equal and round. No scleral icterus. No injection or drainage. ENT: No nasal bleeding or discharge. Mucous membranes pink and moist. NECK: Trachea midline. No JVD. CARDIOVASCULAR: Regular rate and rhythm. RESPIRATORY: No accessory muscle use. Clear to auscultation. Breath sounds equal bilaterally. GASTROINTESTINAL: Abdomen soft, non-tender, nondistended. Hepatic and splenic margins not palpable. MUSCULOSKELETAL: Extremities without clubbing, cyanosis, or edema. No obvious deformities. NEUROLOGICAL: Awake and alert. No obvious cranial nerve deficits. Motor grossly within normal limits. Five out of 5 muscle strength in the arms and legs. Normal speech. PSYCHIATRIC: Appropriate mood and affect; insight and judgment normal. Assessment and Plan Assessment and Plan respiratory failure S/P ICB PLAN O2 NEEDED PULM TOILET Katie Wilson MD Feb 06, 2017 09:00
[2017-02-06] MEDS: NYSTATIN SUSP 500,000 U/5 ML CUP SWISH-SWAL SCH ×4 (09:25→23:02)
[2017-02-06] MEDS: LACTOBACILLUS ACIDOPHILUS TAB PO SCH ×2 (09:26→23:02)
[2017-02-06] MEDS: SENNOSIDES SYRUP 8.8 MG/5 ML CUP PO SCH ×2 (09:26→21:00)
[2017-02-06] MEDS: ASPIRIN EC 81 MG TABEC PO SCH (09:27)
[2017-02-06] MEDS: METOPROLOL TARTRATE 50 MG TAB DOBHOFF SCH (09:27)
[2017-02-06] MEDS: SODIUM CHLORIDE 0.9% FLUSH 10 ML FLUSH IV FLUSH SCH ×2 (09:28→23:49)
--- NOTE | 2017-02-06 11:07 | HHI.PR ---
Subjective Remarks Patient reports is feeling okay except for a headache. Doing well from a respiratory standpoint. Evaluated by speech therapy, was started on pudding consistency diet. Objective Vitals Vital Signs Date Time Temp Pulse Resp B/P (MAP) Pulse Ox O2 Delivery O2 Flow Rate FiO2 02/06/17 08:19 97.8 104 18 128/84 (99) 96 02/06/17 04:00 98.2 103 20 132/87 (102) 96 02/06/17 00:00 98.2 105 20 144/85 (104) 95 02/05/17 21:53 100 02/05/17 21:17 95 21 02/05/17 20:00 98.6 101 18 126/78 (94) 96 02/05/17 20:00 99.2 99 18 124/81 (95) 95 02/05/17 12:00 98.9 81 16 133/61 (85) 96 I/O 02/05/17 02/05/17 02/05/17 02/06/17 02/06/17 02/06/17 07:00 15:00 23:00 07:00 15:00 23:00 Intake Total 923 ml 1169 ml 100 ml Output Total 300 ml 275 ml 200 ml Balance 623 ml 1169 ml -275 ml -100 ml Tube Feeding 683 ml 1089 ml Other 240 ml 80 ml 100 ml Output Urine Total 300 ml 275 ml 200 ml # Voids 1 Result Diagram: 02/02/1773502/02/17 0736 Objective Remarks GENERAL: This is a well-nourished, well-developed patient. No acute distress.. CARDIOVASCULAR: Normal rate and regular rhythm without murmurs, gallops, or rubs. RESPIRATORY: Good respiratory efforts. Breath sounds equal and clear to auscultation bilaterally. GASTROINTESTINAL: Abdomen soft, non-tender, non-distended. Normal active bowel sounds MUSCULOSKELETAL: Extremities without cyanosis, or edema. NEURO: Alert. Moves all ext x4. Generally weak. PSYCH: Appropriate mood and affect. Procedures He was transferred to [facility]. The patient has now been transferred back here to [facility] after being evaluated by neurosurgery there. He had multiple procedures there. 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 He was status post tracheostomy on a trache collar. He has a Dobbhoff tube now in place. He is status post a HOISTING ENGINEER PILE DRIVING shunt. May need a G-tube. He has a history of hyponatremia and has been recently placed on aspirin. 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 He is status post multiple neurosurgical procedures including endovascular coiling and ventriculoperitoneal shunt at [facility]. Patient is transferred back to [place] for further care. Subarachnoid hemorrhage/Vertebral artery aneurysm, Status post coiling, ventriculoperitoneal shunt at [facility]. - Neurosurgery following. He has now been re-started on aspirin. On Seroquel for agitation. -Per neurosurgery, once stable, He can be transferred to rehabilitation and follow-up with Dr. Cassidy. - Tylenol PRN for headache. Status post tracheostomy with a trach collar in place. -Appreciate pulmonology following. Trach removed today 02/05/17. Progressing well.. - breathing treatment. Suction as needed. Patient is managing secretions well. Secretions decreased since Levsin started. Levsin PRN to help with secretions. Nutrition: Patient currently has a Dobbhoff feeding tube. Previously discussed feeding tube placement with patient and his . They do not want this. - Speech therapy following. Started on pudding consistency diet today. - We'll see how he does with diet today and plan to remove Dobbhoff tomorrow. Hypertension: Continue amlodipine and metoprolol. Fever and abnormal urinalysis: Fever resolved. Urine culture is negative. Rocephin discontinued. GI prophylaxis: PPI. Stool softener PRN constipation. DVT PPx: Heparin Discharge Planning Will need rehabilitation. Difficult placement. Ideally [place] rehabilitation. Tania Goel MD Feb 06, 2017 11:07
[2017-02-06] MEDS: MUPIROCIN 2% CREAM 15 GM TOPICAL SCH ×2 (12:49→23:04)
[2017-02-06] MEDS: ACETAMINOPHEN 650 MG/20.3 ML UDC PO PRN ×2 (12:49→23:49)
[2017-02-06] MEDS: [UNRECOGNIZED DRUG - REMARK] DOBHOFF SCH (12:50)
[2017-02-06] MEDS: QUEtiapine FUMARATE 25 MG TAB PO SCH (23:03)
[2017-02-06] MEDS: PANTOPRAZOLE SODIUM 40 MG VIAL IV PUSH SCH (23:49)
[2017-02-07] VITALS (7 sets, daily range): BP systolic 127–151; BP diastolic 85–97; PULSE 86–106; RESP 18–20; TEMP 96.7–98.6; O2SAT 94–98
[2017-02-07] MEDS: HEPARIN SODIUM - SQ 10,000 UNITS/ML VIAL SQ SCH ×3 (06:17→22:59)
[2017-02-07] MEDS: MUPIROCIN 2% CREAM 15 GM TOPICAL SCH ×2 (09:00→22:54)
[2017-02-07] MEDS: METOPROLOL TARTRATE 50 MG TAB DOBHOFF SCH (09:56)
[2017-02-07] MEDS: LACTOBACILLUS ACIDOPHILUS TAB PO SCH ×2 (09:56→22:53)
[2017-02-07] MEDS: ASPIRIN EC 81 MG TABEC PO SCH (09:56)
[2017-02-07] MEDS: NYSTATIN SUSP 500,000 U/5 ML CUP SWISH-SWAL SCH ×4 (09:57→22:53)
[2017-02-07] MEDS: SODIUM CHLORIDE 0.9% FLUSH 10 ML FLUSH IV FLUSH SCH ×2 (09:57→22:53)
--- NOTE | 2017-02-07 10:17 | HHI.PR ---
Subjective Remarks Patient reports is feeling okay. He ate about 50% of his breakfast today. He is inquiring about what kind of job he will be able to do when he is discharged from the hospital. Objective Vitals Vital Signs Date Time Temp Pulse Resp B/P (MAP) Pulse Ox O2 Delivery O2 Flow Rate FiO2 02/07/17 08:00 97.9 101 20 133/88 (103) 96 02/07/17 03:44 98.0 106 18 127/90 (102) 97 02/07/17 00:49 96.7 101 18 151/97 (115) 98 02/06/17 21:11 99.0 99 18 152/97 (115) 96 02/06/17 16:49 98.9 95 18 139/83 (101) 94 02/06/17 14:25 96 02/06/17 14:20 106 02/06/17 12:31 98.2 89 18 144/92 (109) 97 I/O 02/06/17 02/06/17 02/06/17 02/07/17 02/07/17 02/07/17 07:00 15:00 23:00 07:00 15:00 23:00 Intake Total 100 ml 1022 ml Output Total 275 ml 275 ml 100 ml Balance -275 ml -175 ml 922 ml TPN/PPN 942 ml Other 100 ml 80 ml Output Urine Total 275 ml 275 ml 100 ml # Voids 1 2 Objective Remarks GENERAL: This is a well-nourished, well-developed patient. No acute distress.. CARDIOVASCULAR: Normal rate and regular rhythm without murmurs, gallops, or rubs. RESPIRATORY: Good respiratory efforts. Breath sounds equal and clear to auscultation bilaterally. GASTROINTESTINAL: Abdomen soft, non-tender, non-distended. Normal active bowel sounds MUSCULOSKELETAL: Extremities without cyanosis, or edema. NEURO: Alert. Moves all ext x4. Generally weak. PSYCH: Appropriate mood and affect. Procedures He was transferred to [facility]. The patient has now been transferred back here to [facility] after being evaluated by neurosurgery there. He had multiple procedures there. 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 He was status post tracheostomy on a trache collar. He has a Dobbhoff tube now in place. He is status post a WORKPLACE RELATIONS ADVISER shunt. May need a G-tube. He has a history of hyponatremia and has been recently placed on aspirin. 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 He is status post multiple neurosurgical procedures including endovascular coiling and ventriculoperitoneal shunt at [facility]. Patient is transferred back to [place] for further care. Subarachnoid hemorrhage/Vertebral artery aneurysm, Status post coiling, ventriculoperitoneal shunt at [facility]. - Neurosurgery following. He has now been re-started on aspirin. On Seroquel for agitation. -Per neurosurgery, once stable, He can be transferred to rehabilitation and follow-up with Dr. Cassidy. - Tylenol PRN for headache. Status post tracheostomy with a trach collar in place. -Appreciate pulmonology following. Trach removed today 02/05/17. Progressing well.. - breathing treatment. Suction as needed. Patient is managing secretions well. Secretions decreased since Levsin started. Levsin PRN to help with secretions. Nutrition: Patient currently has a Dobbhoff feeding tube. He is starting to tolerate by mouth. - Speech therapy following. Started on regular diet, pudding consistency - He is doing relatively well with by mouth intake. Will remove Dobbhoff today. - Patient encouraged to eat and drink to help with recovery. Hypertension: Continue amlodipine and metoprolol. Fever and abnormal urinalysis: Fever resolved. Urine culture is negative. Rocephin discontinued. GI prophylaxis: Switch to H2 mike. Stool softener PRN constipation. DVT PPx: Heparin Discharge Planning Will need rehabilitation. Difficult placement due to insurance. Tania Goel MD Feb 07, 2017 10:17
[2017-02-07 11:10] LABS: POTASSIUM 4.5 MEQ/L (3.5-5.1)
[2017-02-07] MEDS: HYOSCYAMINE 0.125 MG TAB PO PRN (13:44)
[2017-02-07] MEDS: [UNRECOGNIZED DRUG - REMARK] DOBHOFF SCH (15:00)
--- NOTE | 2017-02-07 15:20 | HHI.PR ---
Subjective Remarks alert no distress Trach. removed well tolerated ORDER PLACED THE 22ND Objective Vital Signs Date Time Temp Pulse Resp B/P (MAP) Pulse Ox O2 Delivery O2 Flow Rate FiO2 02/07/17 12:00 98.3 92 20 129/85 (100) 97 02/07/17 08:00 97.9 101 20 133/88 (103) 96 02/07/17 03:44 98.0 106 18 127/90 (102) 97 02/07/17 00:49 96.7 101 18 151/97 (115) 98 02/06/17 21:11 99.0 99 18 152/97 (115) 96 02/06/17 16:49 98.9 95 18 139/83 (101) 94 I/O 02/06/17 02/06/17 02/06/17 02/07/17 02/07/17 02/07/17 07:00 15:00 23:00 07:00 15:00 23:00 Intake Total 100 ml 1022 ml Output Total 275 ml 275 ml 100 ml Balance -275 ml -175 ml 922 ml TPN/PPN 942 ml Other 100 ml 80 ml Output Urine Total 275 ml 275 ml 100 ml # Voids 1 2 Result Diagram: 02/07/17 1018 Objective Remarks GENERAL: SKIN: Warm and dry. HEAD: Atraumatic. Normocephalic. EYES: Pupils equal and round. No scleral icterus. No injection or drainage. ENT: No nasal bleeding or discharge. Mucous membranes pink and moist. NECK: Trachea midline. No JVD. CARDIOVASCULAR: Regular rate and rhythm. RESPIRATORY: No accessory muscle use. Clear to auscultation. Breath sounds equal bilaterally. GASTROINTESTINAL: Abdomen soft, non-tender, nondistended. Hepatic and splenic margins not palpable. MUSCULOSKELETAL: Extremities without clubbing, cyanosis, or edema. No obvious deformities. NEUROLOGICAL: Awake and alert. No obvious cranial nerve deficits. Motor grossly within normal limits. Five out of 5 muscle strength in the arms and legs. Normal speech. PSYCHIATRIC: Appropriate mood and affect; insight and judgment normal. Assessment and Plan Assessment and Plan respiratory failure S/P ICB PLAN O2 NEEDED PULM TOILET Katie Wilson MD Feb 07, 2017 15:20
[2017-02-07] MEDS: ACETAMINOPHEN 650 MG/20.3 ML UDC PO PRN ×2 (18:32→22:53)
[2017-02-07] MEDS: FAMOTIDINE 20 MG TAB PO SCH (22:53)
[2017-02-07] MEDS: QUEtiapine FUMARATE 25 MG TAB PO SCH (22:54)
[2017-02-08] VITALS (8 sets, daily range): BP systolic 118–144; BP diastolic 82–99; PULSE 86–102; RESP 18–20; TEMP 97.9–98.4; O2SAT 94–97
[2017-02-08] MEDS: ACETAMINOPHEN 650 MG/20.3 ML UDC PO PRN ×2 (05:05→10:21)
[2017-02-08] MEDS: HEPARIN SODIUM - SQ 10,000 UNITS/ML VIAL SQ SCH ×3 (05:06→21:44)
[2017-02-08] MEDS: SODIUM CHLORIDE 0.9% FLUSH 10 ML FLUSH IV FLUSH SCH ×2 (09:00→21:00)
[2017-02-08] MEDS: MUPIROCIN 2% CREAM 15 GM TOPICAL SCH ×2 (09:00→21:00)
[2017-02-08] MEDS: ASPIRIN EC 81 MG TABEC PO SCH (09:57)
[2017-02-08] MEDS: LACTOBACILLUS ACIDOPHILUS TAB PO SCH ×2 (09:57→21:44)
[2017-02-08] MEDS: METOPROLOL TARTRATE 50 MG TAB DOBHOFF SCH (09:57)
[2017-02-08] MEDS: FAMOTIDINE 20 MG TAB PO SCH ×2 (09:58→21:44)
[2017-02-08] MEDS: NYSTATIN SUSP 500,000 U/5 ML CUP SWISH-SWAL SCH ×4 (09:58→21:44)
[2017-02-08] MEDS: ACETAMINOPHEN/HYDROcodone 325 MG/5 MG TAB PO PRN ×2 (12:03→18:40)
--- NOTE | 2017-02-08 13:00 | HHI.PR ---
Subjective Remarks Patient reports is feeling okay except for headache and back pain. He is sitting up in the chair today. No problems with breathing. He is eating. Objective Vitals Vital Signs Date Time Temp Pulse Resp B/P (MAP) Pulse Ox O2 Delivery O2 Flow Rate FiO2 02/08/17 12:00 98.0 88 20 118/82 (94) 94 02/08/17 08:25 98.4 99 20 122/94 (103) 95 02/08/17 04:10 97.9 100 19 131/86 (101) 94 02/08/17 00:00 98.3 98 19 130/93 (105) 96 02/07/17 20:00 98.6 100 20 127/90 (102) 94 02/07/17 18:00 98 02/07/17 16:00 98.3 94 20 134/85 (101) 97 I/O 02/07/17 02/07/17 02/07/17 02/08/17 02/08/17 02/08/17 07:00 15:00 23:00 07:00 15:00 23:00 Intake Total 1200 ml Output Total 325 ml 125 ml Balance 875 ml -125 ml Intake Oral 1200 ml Output Urine Total 225 ml 125 ml Stool Total 100 ml Result Diagram: 02/07/17 1018 Objective Remarks GENERAL: This is a well-nourished, well-developed patient. No acute distress.. CARDIOVASCULAR: Normal rate and regular rhythm without murmurs, gallops, or rubs. RESPIRATORY: Good respiratory efforts. Breath sounds equal and clear to auscultation bilaterally. GASTROINTESTINAL: Abdomen soft, non-tender, non-distended. Normal active bowel sounds MUSCULOSKELETAL: Extremities without cyanosis, or edema. NEURO: Alert. Moves all ext x4. Generally weak. PSYCH: Appropriate mood and affect. Procedures He was transferred to [facility]. The patient has now been transferred back here to [facility] after being evaluated by neurosurgery there. He had multiple procedures there. 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 He was status post tracheostomy on a trache collar. He has a Dobbhoff tube now in place. He is status post a FILTER PULP WASHER shunt. May need a G-tube. He has a history of hyponatremia and has been recently placed on aspirin. 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 He is status post multiple neurosurgical procedures including endovascular coiling and ventriculoperitoneal shunt at [facility]. Patient is transferred back to [place] for further care. Subarachnoid hemorrhage/Vertebral artery aneurysm, Status post coiling, ventriculoperitoneal shunt at [facility]. - Neurosurgery following. He has now been re-started on aspirin. On Seroquel for agitation. -Per neurosurgery, once stable, He can be transferred to rehabilitation and follow-up with Dr. Cassidy. - Tylenol PRN. Add [place] for pain greater than 5 to help him participate more with PT. Status post tracheostomy with a trach collar in place. - Appreciate pulmonology following. Trach removed 02/05/17. Progressing well.. - breathing treatment. Suction as needed. Patient is managing secretions well. Secretions decreased since Levsin started. Levsin PRN to help with secretions. Nutrition: Dobbhoff feeding tube removed on 02/07/17. He is starting to tolerate by mouth. - Speech therapy following. Started on regular diet, pudding consistency - He is doing relatively well with by mouth intake. - Patient encouraged to eat and drink to help with recovery. Hypertension: Continue amlodipine and metoprolol. GI prophylaxis: Switch to H2 mike. Stool softener PRN constipation. DVT PPx: Heparin Discharge Planning Will need rehabilitation. Difficult placement due to insurance. Tania Goel MD Feb 08, 2017 13:00
[2017-02-08] MEDS: [UNRECOGNIZED DRUG - REMARK] DOBHOFF SCH (14:11)
--- NOTE | 2017-02-08 16:38 | HHI.PR ---
Subjective Remarks alert no distress Trach. removed well tolerated Objective Vital Signs Date Time Temp Pulse Resp B/P (MAP) Pulse Ox O2 Delivery O2 Flow Rate FiO2 02/08/17 15:59 98.4 94 20 142/95 (111) 96 02/08/17 12:00 98.0 88 20 118/82 (94) 94 02/08/17 08:25 98.4 99 20 122/94 (103) 95 02/08/17 04:10 97.9 100 19 131/86 (101) 94 02/08/17 00:00 98.3 98 19 130/93 (105) 96 02/07/17 20:00 98.6 100 20 127/90 (102) 94 02/07/17 18:00 98 I/O 02/07/17 02/07/17 02/07/17 02/08/17 02/08/17 02/08/17 06:59 14:59 22:59 06:59 14:59 22:59 Intake Total 1200 ml Output Total 325 ml 125 ml Balance 875 ml -125 ml Intake Oral 1200 ml Output Urine Total 225 ml 125 ml Stool Total 100 ml Result Diagram: 02/07/17 1018 Objective Remarks GENERAL: SKIN: Warm and dry. HEAD: Atraumatic. Normocephalic. EYES: Pupils equal and round. No scleral icterus. No injection or drainage. ENT: No nasal bleeding or discharge. Mucous membranes pink and moist. NECK: Trachea midline. No JVD. CARDIOVASCULAR: Regular rate and rhythm. RESPIRATORY: No accessory muscle use. Clear to auscultation. Breath sounds equal bilaterally. GASTROINTESTINAL: Abdomen soft, non-tender, nondistended. Hepatic and splenic margins not palpable. MUSCULOSKELETAL: Extremities without clubbing, cyanosis, or edema. No obvious deformities. NEUROLOGICAL: Awake and alert. No obvious cranial nerve deficits. Motor grossly within normal limits. Five out of 5 muscle strength in the arms and legs. Normal speech. PSYCHIATRIC: Appropriate mood and affect; insight and judgment normal. Assessment and Plan Assessment and Plan respiratory failure S/P ICB PLAN O2 NEEDED PULM TOILET Katie Wilson MD Feb 08, 2017 16:38
[2017-02-08] MEDS: QUEtiapine FUMARATE 25 MG TAB PO SCH (21:44)
[2017-02-09] VITALS (8 sets, daily range): BP systolic 127–163; BP diastolic 82–104; PULSE 85–102; RESP 16–20; TEMP 97.2–98.8; O2SAT 95–98
[2017-02-09] MEDS: HEPARIN SODIUM - SQ 10,000 UNITS/ML VIAL SQ SCH ×3 (05:34→20:57)
[2017-02-09] MEDS: SODIUM CHLORIDE 0.9% FLUSH 10 ML FLUSH IV FLUSH SCH ×2 (09:00→20:56)
[2017-02-09] MEDS: MUPIROCIN 2% CREAM 15 GM TOPICAL SCH ×2 (09:00→20:56)
[2017-02-09] MEDS: ASPIRIN EC 81 MG TABEC PO SCH (09:03)
[2017-02-09] MEDS: METOPROLOL TARTRATE 50 MG TAB DOBHOFF SCH (09:03)
[2017-02-09] MEDS: FAMOTIDINE 20 MG TAB PO SCH ×2 (09:03→20:56)
[2017-02-09] MEDS: ACETAMINOPHEN/HYDROcodone 325 MG/5 MG TAB PO PRN ×4 (09:03→20:56)
[2017-02-09] MEDS: LACTOBACILLUS ACIDOPHILUS TAB PO SCH ×2 (09:04→20:55)
[2017-02-09] MEDS: NYSTATIN SUSP 500,000 U/5 ML CUP SWISH-SWAL SCH ×4 (09:04→20:55)
--- NOTE | 2017-02-09 11:03 | HHI.PR ---
Subjective Remarks Patient reports he is feeling okay. Headache is controlled with pain medication. Swallowing function improving. He is advanced to mechanical soft diet. Objective Vitals Vital Signs Date Time Temp Pulse Resp B/P (MAP) Pulse Ox O2 Delivery O2 Flow Rate FiO2 02/09/17 09:38 99 02/09/17 04:00 97.5 98 16 127/86 (100) 96 02/09/17 00:00 97.3 85 18 135/82 (99) 98 02/08/17 20:00 98.4 98 18 144/99 (114) 97 02/08/17 19:00 102 02/08/17 15:59 98.4 94 20 142/95 (111) 96 02/08/17 12:00 98.0 88 20 118/82 (94) 94 I/O 02/08/17 02/08/17 02/08/17 02/09/17 02/09/17 02/09/17 07:00 15:00 23:00 07:00 15:00 23:00 Output Total 125 ml 750 ml 75 ml Balance -125 ml -750 ml -75 ml Output Urine Total 125 ml 750 ml 75 ml Result Diagram: 02/07/17 1018 Objective Remarks GENERAL: This is a well-nourished, well-developed patient. No acute distress.. CARDIOVASCULAR: Normal rate and regular rhythm without murmurs, gallops, or rubs. RESPIRATORY: Good respiratory efforts. Breath sounds equal and clear to auscultation bilaterally. GASTROINTESTINAL: Abdomen soft, non-tender, non-distended. Normal active bowel sounds MUSCULOSKELETAL: Extremities without cyanosis, or edema. NEURO: Alert. Moves all ext x4. Generally weak. PSYCH: Appropriate mood and affect. Procedures He was transferred to [facility]. The patient has now been transferred back here to [facility] after being evaluated by neurosurgery there. He had multiple procedures there. 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 He was status post tracheostomy on a trache collar. He has a Dobbhoff tube now in place. He is status post a INSURANCE CONSULTANT shunt. May need a G-tube. He has a history of hyponatremia and has been recently placed on aspirin. 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 He is status post multiple neurosurgical procedures including endovascular coiling and ventriculoperitoneal shunt at [facility]. Patient is transferred back to [place] for further care. Subarachnoid hemorrhage/Vertebral artery aneurysm, Status post coiling, ventriculoperitoneal shunt at [facility]. - Neurosurgery following. He has now been re-started on aspirin. Discontinue Seroquel. -Per neurosurgery, once stable, He can be transferred to rehabilitation and follow-up with Dr. Cassidy. - Tylenol PRN. [place] for pain greater than 5 and to help him participate more with PT. Status post tracheostomy with a trach collar in place. - Appreciate pulmonology following. Trach removed 02/05/17. Progressing well.. - breathing treatment. Suction as needed. Patient is managing secretions well. Secretions decreased since Levsin started. Levsin PRN to help with secretions. Nutrition: Dobbhoff feeding tube removed on 02/07/17. He is starting to tolerate by mouth. - Speech therapy following. Started on regular diet, advance to mechanical soft - He is doing relatively well with by mouth intake. - Patient encouraged to eat and drink to help with recovery. - Discontinue Accu-Chek and rectal tube. Hypertension: Continue amlodipine and metoprolol. GI prophylaxis: Switch to H2 mike. Stool softener PRN constipation. DVT PPx: Heparin Discharge Planning Will need rehabilitation. Difficult placement due to insurance. Tania Goel MD Feb 09, 2017 11:03
[2017-02-09] MEDS: [UNRECOGNIZED DRUG - REMARK] DOBHOFF SCH (12:42)
--- NOTE | 2017-02-09 14:35 | HHI.PR ---
Subjective Remarks alert no distress Trach. removed well tolerated Objective Vital Signs Date Time Temp Pulse Resp B/P (MAP) Pulse Ox O2 Delivery O2 Flow Rate FiO2 02/09/17 09:38 99 02/09/17 04:00 97.5 98 16 127/86 (100) 96 02/09/17 00:00 97.3 85 18 135/82 (99) 98 02/08/17 20:00 98.4 98 18 144/99 (114) 97 02/08/17 19:00 102 02/08/17 15:59 98.4 94 20 142/95 (111) 96 I/O 02/08/17 02/08/17 02/08/17 02/09/17 02/09/17 02/09/17 07:00 15:00 23:00 07:00 15:00 23:00 Output Total 125 ml 750 ml 75 ml Balance -125 ml -750 ml -75 ml Output Urine Total 125 ml 750 ml 75 ml Result Diagram: 02/07/17 1018 Objective Remarks GENERAL: SKIN: Warm and dry. HEAD: Atraumatic. Normocephalic. EYES: Pupils equal and round. No scleral icterus. No injection or drainage. ENT: No nasal bleeding or discharge. Mucous membranes pink and moist. NECK: Trachea midline. No JVD. CARDIOVASCULAR: Regular rate and rhythm. RESPIRATORY: No accessory muscle use. Clear to auscultation. Breath sounds equal bilaterally. GASTROINTESTINAL: Abdomen soft, non-tender, nondistended. Hepatic and splenic margins not palpable. MUSCULOSKELETAL: Extremities without clubbing, cyanosis, or edema. No obvious deformities. NEUROLOGICAL: Awake and alert. No obvious cranial nerve deficits. Motor grossly within normal limits. Five out of 5 muscle strength in the arms and legs. Normal speech. PSYCHIATRIC: Appropriate mood and affect; insight and judgment normal. Assessment and Plan Assessment and Plan respiratory failure S/P ICB PLAN O2 NEEDED PULM TOILET Katie Wilson MD Feb 09, 2017 14:35
[2017-02-10 04:00] VITALS: BP 135/94; PULSE 97; RESP 18; TEMP 98.2; O2SAT 97
[2017-02-10] MEDS: HEPARIN SODIUM - SQ 10,000 UNITS/ML VIAL SQ SCH ×3 (05:32→22:42)
[2017-02-10 08:00] VITALS: BP 129/89; PULSE 99; RESP 18; TEMP 98.6; O2SAT 95
[2017-02-10] MEDS: FAMOTIDINE 20 MG TAB PO SCH ×2 (08:21→22:42)
[2017-02-10] MEDS: ASPIRIN EC 81 MG TABEC PO SCH (08:21)
[2017-02-10] MEDS: SODIUM CHLORIDE 0.9% FLUSH 10 ML FLUSH IV FLUSH SCH ×2 (08:21→22:42)
[2017-02-10] MEDS: NYSTATIN SUSP 500,000 U/5 ML CUP SWISH-SWAL SCH ×4 (08:21→22:42)
[2017-02-10] MEDS: METOPROLOL TARTRATE 50 MG TAB DOBHOFF SCH (08:21)
[2017-02-10] MEDS: LACTOBACILLUS ACIDOPHILUS TAB PO SCH ×2 (08:21→22:42)
[2017-02-10] MEDS: ACETAMINOPHEN/HYDROcodone 325 MG/5 MG TAB PO PRN ×4 (08:22→22:43)
[2017-02-10] MEDS: MUPIROCIN 2% CREAM 15 GM TOPICAL SCH ×2 (08:22→21:00)
--- NOTE | 2017-02-10 08:37 | HHI.PR ---
Subjective Remarks alert no distress Trach. removed well tolerated Objective Vital Signs Date Time Temp Pulse Resp B/P (MAP) Pulse Ox O2 Delivery O2 Flow Rate FiO2 02/10/17 04:00 98.2 97 18 135/94 (108) 97 02/09/17 20:00 97.2 98 18 163/104 (123) 98 02/09/17 19:00 96 02/09/17 16:00 98.2 96 18 134/93 (107) 97 02/09/17 12:00 98.1 93 20 140/84 (102) 96 02/09/17 09:38 99 I/O 02/09/17 02/09/17 02/09/17 02/10/17 02/10/17 02/10/17 06:59 14:59 22:59 06:59 14:59 22:59 Intake Total 240 ml Output Total 750 ml 450 ml 1100 ml 225 ml Balance -750 ml -210 ml -1100 ml -225 ml Intake Oral 240 ml Output Urine Total 750 ml 450 ml 1100 ml 225 ml Result Diagram: 02/07/17 1018 Objective Remarks GENERAL: SKIN: Warm and dry. HEAD: Atraumatic. Normocephalic. EYES: Pupils equal and round. No scleral icterus. No injection or drainage. ENT: No nasal bleeding or discharge. Mucous membranes pink and moist. NECK: Trachea midline. No JVD. CARDIOVASCULAR: Regular rate and rhythm. RESPIRATORY: No accessory muscle use. Clear to auscultation. Breath sounds equal bilaterally. GASTROINTESTINAL: Abdomen soft, non-tender, nondistended. Hepatic and splenic margins not palpable. MUSCULOSKELETAL: Extremities without clubbing, cyanosis, or edema. No obvious deformities. NEUROLOGICAL: Awake and alert. No obvious cranial nerve deficits. Motor grossly within normal limits. Five out of 5 muscle strength in the arms and legs. Normal speech. PSYCHIATRIC: Appropriate mood and affect; insight and judgment normal. Assessment and Plan Assessment and Plan respiratory failure S/P ICB PLAN O2 NEEDED PULM TOILET Katie Wilson MD Feb 10, 2017 08:37
[2017-02-10 10:18] VITALS: PULSE 97
[2017-02-10 12:00] VITALS: BP 128/78; PULSE 87; RESP 18; TEMP 97.9; O2SAT 96
[2017-02-10] MEDS: [UNRECOGNIZED DRUG - REMARK] DOBHOFF SCH (12:24)
--- NOTE | 2017-02-10 13:31 | HHI.PR ---
Subjective Remarks Patient reports he is feeling better. He wished he was stronger. Objective Vitals Vital Signs Date Time Temp Pulse Resp B/P (MAP) Pulse Ox O2 Delivery O2 Flow Rate FiO2 02/10/17 10:18 97 02/10/17 08:00 98.6 99 18 129/89 (102) 95 02/10/17 04:00 98.2 97 18 135/94 (108) 97 02/09/17 20:00 97.2 98 18 163/104 (123) 98 02/09/17 19:00 96 02/09/17 16:00 98.2 96 18 134/93 (107) 97 I/O 02/09/17 02/09/17 02/09/17 02/10/17 02/10/17 02/10/17 06:59 14:59 22:59 06:59 14:59 22:59 Intake Total 240 ml Output Total 750 ml 450 ml 1100 ml 225 ml Balance -750 ml -210 ml -1100 ml -225 ml Intake Oral 240 ml Output Urine Total 750 ml 450 ml 1100 ml 225 ml Result Diagram: 02/07/17 1018 Objective Remarks GENERAL: This is a well-nourished, well-developed patient. No acute distress.. CARDIOVASCULAR: Normal rate and regular rhythm without murmurs, gallops, or rubs. RESPIRATORY: Good respiratory efforts. Breath sounds equal and clear to auscultation bilaterally. GASTROINTESTINAL: Abdomen soft, non-tender, non-distended. Normal active bowel sounds MUSCULOSKELETAL: Extremities without cyanosis, or edema. NEURO: Alert. Moves all ext x4. Generally weak. PSYCH: Appropriate mood and affect. Procedures He was transferred to [facility]. The patient has now been transferred back here to [facility] after being evaluated by neurosurgery there. He had multiple procedures there. 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 He was status post tracheostomy on a trache collar. He has a Dobbhoff tube now in place. He is status post a BENCH ASSEMBLER shunt. May need a G-tube. He has a history of hyponatremia and has been recently placed on aspirin. 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 He is status post multiple neurosurgical procedures including endovascular coiling and ventriculoperitoneal shunt at [facility]. Patient is transferred back to [place] for further care. Subarachnoid hemorrhage/Vertebral artery aneurysm, Status post coiling, ventriculoperitoneal shunt at [facility]. - Neurosurgery following. He has now been re-started on aspirin. Discontinue Seroquel. -Per neurosurgery, once stable, He can be transferred to rehabilitation and follow-up with Dr. Cassidy. - Tylenol PRN. [place] for pain greater than 5 and to help him participate more with PT. Status post tracheostomy with a trach collar in place. - Appreciate pulmonology following. Trach removed 02/05/17. Progressing well.. - breathing treatment. Suction as needed. Secretions decreased since Levsin started. Levsin PRN to help with secretions. Nutrition: Dobbhoff feeding tube removed on 02/07/17. He is tolerating by mouth. - Speech therapy following. Started on regular diet, advance to mechanical soft - He is doing relatively well with by mouth intake. - Patient encouraged to eat and drink to help with recovery. - Discontinue Accu-Chek and rectal tube. Hypertension: Continue amlodipine and metoprolol. GI prophylaxis: Switch to H2 mike. Stool softener PRN constipation. DVT PPx: Heparin Discharge Planning Need rehabilitation. Difficult placement due to insurance. Tania Goel MD Feb 10, 2017 13:31
[2017-02-10 15:25] VITALS: BP 128/89; PULSE 95; RESP 17; TEMP 98.4; O2SAT 96
[2017-02-10 21:18] VITALS: BP 139/94; PULSE 94; RESP 20; TEMP 98.2; O2SAT 96
[2017-02-11] VITALS (9 sets, daily range): BP systolic 105–152; BP diastolic 78–94; PULSE 84–97; RESP 16–20; TEMP 97.4–99; O2SAT 96–100
[2017-02-11] MEDS: HEPARIN SODIUM - SQ 10,000 UNITS/ML VIAL SQ SCH ×3 (05:09→21:17)
[2017-02-11] MEDS: ACETAMINOPHEN/HYDROcodone 325 MG/5 MG TAB PO PRN ×5 (05:15→21:23)
[2017-02-11] MEDS: MUPIROCIN 2% CREAM 15 GM TOPICAL SCH ×2 (09:00→21:00)
[2017-02-11] MEDS: METOPROLOL TARTRATE 50 MG TAB DOBHOFF SCH (09:08)
[2017-02-11] MEDS: FAMOTIDINE 20 MG TAB PO SCH ×2 (09:08→21:16)
[2017-02-11] MEDS: LACTOBACILLUS ACIDOPHILUS TAB PO SCH ×2 (09:08→21:16)
[2017-02-11] MEDS: SODIUM CHLORIDE 0.9% FLUSH 10 ML FLUSH IV FLUSH SCH ×2 (09:08→21:17)
[2017-02-11] MEDS: ASPIRIN EC 81 MG TABEC PO SCH (09:08)
[2017-02-11] MEDS: NYSTATIN SUSP 500,000 U/5 ML CUP SWISH-SWAL SCH ×4 (09:09→21:16)
--- NOTE | 2017-02-11 10:53 | HHI.PR ---
Subjective Remarks No acute events overnight. Afebrile, vital signs stable. Patient had many questions concerning his plan of care which were answered to the best of my ability. He has no complaints at this time. Objective Vitals Vital Signs Date Time Temp Pulse Resp B/P (MAP) Pulse Ox O2 Delivery O2 Flow Rate FiO2 02/11/17 09:22 92 02/11/17 08:00 97.4 92 16 126/83 (97) 96 02/11/17 06:29 98.5 97 20 134/94 (107) 96 02/11/17 05:38 89 02/11/17 01:56 99.0 88 20 152/94 (113) 96 02/10/17 21:18 98.2 94 20 139/94 (109) 96 02/10/17 15:25 98.4 95 17 128/89 (102) 96 02/10/17 12:00 97.9 87 18 128/78 (95) 96 I/O 02/10/17 02/10/17 02/10/17 02/11/17 02/11/17 02/11/17 07:00 15:00 23:00 07:00 15:00 23:00 Intake Total 240 ml Output Total 1100 ml 450 ml 275 ml 150 ml Balance -1100 ml -210 ml -275 ml -150 ml Intake Oral 240 ml Output Urine Total 1100 ml 450 ml 275 ml 150 ml Result Diagram: 02/07/17 1018 Objective Remarks GENERAL: This is a well-nourished, well-developed patient. No acute distress.. CARDIOVASCULAR: Normal rate and regular rhythm without murmurs, gallops, or rubs. RESPIRATORY: Good respiratory efforts. Breath sounds equal and clear to auscultation bilaterally. GASTROINTESTINAL: Abdomen soft, non-tender, non-distended. Normal active bowel sounds MUSCULOSKELETAL: Extremities without cyanosis, or edema. NEURO: Alert. Moves all ext x4. Generally weak. PSYCH: Appropriate mood and affect. Procedures He was transferred to [facility]. The patient has now been transferred back here to [facility] after being evaluated by neurosurgery there. He had multiple procedures there. 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 He was status post tracheostomy on a trache collar. He is status post a GAS JOCKEY shunt. May need a G-tube. He has a history of hyponatremia and has been recently placed on aspirin. 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 He is status post multiple neurosurgical procedures including endovascular coiling and ventriculoperitoneal shunt at [facility]. Patient is transferred back to [place] for further care. Subarachnoid hemorrhage/Vertebral artery aneurysm, Status post coiling, ventriculoperitoneal shunt at [facility]. - Neurosurgery following. He has now been re-started on aspirin. Discontinue Seroquel. -Per neurosurgery, once stable, He can be transferred to rehabilitation and follow-up with Dr. Cassidy. - Tylenol PRN. [place] for pain greater than 5 and to help him participate more with PT. Status post tracheostomy with a trach collar in place. - Appreciate pulmonology following. Trach removed 02/05/17. Progressing well. - breathing treatment. Secretions decreased since Levsin started. Levsin PRN to help with secretions. Nutrition: Dobbhoff feeding tube removed on 02/07/17. He is tolerating by mouth. - Speech therapy following. Started on regular diet, advance to mechanical soft with thin liquids - He is doing relatively well with by mouth intake. - Patient encouraged to eat and drink to help with recovery. - Discontinue Accu-Chek and rectal tube. Hypertension: Continue amlodipine and metoprolol. Controlled. GI prophylaxis: Switch to H2 mike. Stool softener PRN constipation. DVT PPx: Heparin Discharge Planning Patient stable from a medical standpoint. Needs inpatient rehabilitation. CM consulted to assist with placement. Dipti Caceres MD R3 Feb 11, 2017 10:53
[2017-02-11] MEDS: [UNRECOGNIZED DRUG - REMARK] DOBHOFF SCH (13:05)
--- NOTE | 2017-02-11 21:31 | HHI.NSPN ---
History Chief Complaint: s/p PUBLIC FINANCE SPECIALIST shunt for hydrocephalus from [facility]. Interval History Patient is status post occlusion of left vertebral artery aneurysm following subarachnoid hemorrhage. Status post ventriculoperitoneal shunt for secondary hydrocephalus. Complains primarily of persistent severe headache. System Review Comments No nausea vomiting. Complains of diplopia Exam Results Vital Signs Date Time Temp Pulse Resp B/P (MAP) Pulse Ox O2 Delivery O2 Flow Rate FiO2 02/11/17 16:00 98.5 88 16 124/85 (98) 97 Intake and Output 02/11/17 02/11/17 02/12/17 08:00 16:00 00:00 Intake Total 480 ml Output Total 150 ml 300 ml Balance -150 ml 180 ml Physical Examination Resp: CTA bilaterally. No dyspnea or tachypnea. Off oxygen. Heart: NSR no murmurs Abd: Soft positive bs Skin: Incisions clean and dry scalp and abdomen. No signs of infection or complication. All dayanara have been removed. Muscle: Moves all 4 extremities well. Neuro: Pt awake. Pupils 3mm bilaterally reactive bilaterally. Verbalizing well. Follows simple commands well. He appears to have a right cranial nerve deficit, diplopia with right lateral gaze. Facial sensory motor testing intact Sensorimotor function intact throughout the upper and lower extremities Medical Decision Making Impression and Plan Impression: Persistent headache following subarachnoid hemorrhage, PUBLIC FINANCE SPECIALIST shunt. Otherwise neurologically stable. 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 Plan: Findings assessment patient Continuing present pain medications Check follow-up CT scan to evaluate proper shunt function, rule out persistent edema, subdural effusion. Tutu Cassidy MD Feb 11, 2017 21:31
[2017-02-12] VITALS (10 sets, daily range): BP systolic 118–143; BP diastolic 81–93; PULSE 85–95; RESP 18–20; TEMP 97.7–98.8; O2SAT 95–98
[2017-02-12] MEDS: HEPARIN SODIUM - SQ 10,000 UNITS/ML VIAL SQ SCH ×3 (05:55→21:11)
--- NOTE | 2017-02-12 08:11 | RADRPT ---
EXAM DATE/TIME: 02/12/2017 08:01 [place] COMPARISON: CTA BRAIN W 3D RECON, January 12, 2017, 16:53. CT BRAIN W/O CONTRAST, January 12, 2017, 16:49. INDICATIONS : F/U subarachnoid hemorrhage. RADIATION DOSE: 33.41 CTDIvol (mGy) MEDICAL HISTORY : Hypertension. Cardiovascular disease SURGICAL HISTORY : None. ENCOUNTER: Subsequent ACUITY: 1 month PAIN SCALE: Non-responsive LOCATION: cranial TECHNIQUE: Multiple contiguous axial images were obtained of the head. Using automated exposure control and adj ustment of the mA and/or kV according to patient size, radiation dose was kept as low as reasonably a chievable to obtain optimal diagnostic quality images. DICOM format image data is available electro nically for review and comparison. FINDINGS: A right frontal approach GAS BLENDER shunt is identified with the tip terminating at the midline third ventric le. The subarachnoid hemorrhage noted previously is significantly decreased. There is a small amount of high attenuation consistent with subarachnoid blood in the high parietal region near the vertex. T here is streak artifact in the posterior fossa on the right from right vertebral artery aneurysm coil ing. CONCLUSION: Trace subarachnoid hemorrhage is seen within the high parietal region. No signs of infarct or mass. Best Cummings MD on February 12, 2017 at 8:05 Board Certified Radiologist. This report was verified electronically.
[2017-02-12] MEDS: FAMOTIDINE 20 MG TAB PO SCH ×2 (08:34→21:11)
[2017-02-12] MEDS: MUPIROCIN 2% CREAM 15 GM TOPICAL SCH ×2 (08:34→21:00)
[2017-02-12] MEDS: ASPIRIN EC 81 MG TABEC PO SCH (08:34)
[2017-02-12] MEDS: METOPROLOL TARTRATE 50 MG TAB DOBHOFF SCH (08:34)
[2017-02-12] MEDS: ACETAMINOPHEN/HYDROcodone 325 MG/5 MG TAB PO PRN ×3 (08:34→17:49)
[2017-02-12] MEDS: LACTOBACILLUS ACIDOPHILUS TAB PO SCH ×2 (08:34→21:11)
[2017-02-12] MEDS: NYSTATIN SUSP 500,000 U/5 ML CUP SWISH-SWAL SCH ×4 (08:34→21:10)
[2017-02-12] MEDS: SODIUM CHLORIDE 0.9% FLUSH 10 ML FLUSH IV FLUSH SCH ×2 (08:35→21:00)
--- NOTE | 2017-02-12 10:25 | HHI.PR ---
Subjective Remarks No acute events overnight. Afebrile, vital signs stable. Patient continues to complain of persistent diplopia. Objective Vitals Vital Signs Date Time Temp Pulse Resp B/P (MAP) Pulse Ox O2 Delivery O2 Flow Rate FiO2 02/12/17 09:33 96 02/12/17 08:39 88 02/12/17 08:00 98.5 92 18 124/86 (99) 96 02/12/17 04:00 98.0 94 18 118/82 (94) 97 02/12/17 00:00 97.7 86 18 138/87 (104) 95 02/11/17 22:20 97.8 89 18 128/89 (102) 100 02/11/17 20:00 88 02/11/17 16:00 98.5 88 16 124/85 (98) 97 02/11/17 12:00 97.6 84 16 105/78 (87) 96 I/O 02/11/17 02/11/17 02/11/17 02/12/17 02/12/17 02/12/17 07:00 15:00 23:00 07:00 15:00 23:00 Intake Total 480 ml Output Total 150 ml 300 ml 400 ml 75 ml Balance -150 ml 180 ml -400 ml -75 ml Intake Oral 480 ml Output Urine Total 150 ml 300 ml 400 ml 75 ml # Bowel Movements 1 Objective Remarks GENERAL: This is a well-nourished, well-developed patient. No acute distress.. CARDIOVASCULAR: Normal rate and regular rhythm without murmurs, gallops, or rubs. RESPIRATORY: Good respiratory efforts. Breath sounds equal and clear to auscultation bilaterally. GASTROINTESTINAL: Abdomen soft, non-tender, non-distended. Normal active bowel sounds MUSCULOSKELETAL: Extremities without cyanosis, or edema. NEURO: Alert. Moves all ext x4. Generally weak. PSYCH: Appropriate mood and affect. Procedures He was transferred to [facility]. The patient has now been transferred back here to [facility] after being evaluated by neurosurgery there. He had multiple procedures there. 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 He was status post tracheostomy on a trache collar. He is status post a DATA PROCESSING SUPERVISOR shunt. May need a G-tube. He has a history of hyponatremia and has been recently placed on aspirin. 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 He is status post multiple neurosurgical procedures including endovascular coiling and ventriculoperitoneal shunt at [facility]. Patient is transferred back to [place] for further care. Subarachnoid hemorrhage/Vertebral artery aneurysm, Status post coiling, ventriculoperitoneal shunt at [facility]. - Neurosurgery following. He has now been re-started on aspirin. Discontinue Seroquel. -Per neurosurgery, once stable, he can be transferred to rehabilitation. Repeat CT done on 02/12. Plan per Dr. Cassidy. - Tylenol PRN. [place] for pain greater than 5 and to help him participate more with PT. Status post tracheostomy with a trach collar in place. - Appreciate pulmonology following. Trach removed 02/05/17. Progressing well. - breathing treatment. Secretions decreased since Levsin started. Levsin PRN to help with secretions. Nutrition: Dobbhoff feeding tube removed on 02/07/17. He is tolerating by mouth. - Speech therapy following. Started on regular diet, advance to mechanical soft with thin liquids - He is doing relatively well with by mouth intake. - Patient encouraged to eat and drink to help with recovery. - Discontinue Accu-Chek and rectal tube. Hypertension: Continue amlodipine and metoprolol. Controlled. GI prophylaxis: Switch to H2 mike. Stool softener PRN constipation. DVT PPx: Heparin Discharge Planning Pending neurosurgery clearance. Patient will need long-term placement. Case management consultation for assistance. Dipti Caceres MD R3 Feb 12, 2017 10:25
[2017-02-12] MEDS: [UNRECOGNIZED DRUG - REMARK] DOBHOFF SCH (12:58)
--- NOTE | 2017-02-12 15:40 | HHI.NSPN ---
History Chief Complaint: s/p PE ELECTRICAL ENGINEER shunt for hydrocephalus from [facility]. Interval History Patient is status post occlusion of left vertebral artery aneurysm following subarachnoid hemorrhage. Status post ventriculoperitoneal shunt for secondary hydrocephalus. Complains primarily of persistent severe headache. Exam Results Vital Signs Date Time Temp Pulse Resp B/P (MAP) Pulse Ox O2 Delivery O2 Flow Rate FiO2 02/12/17 12:00 98.8 95 18 122/83 (96) 97 Intake and Output 02/12/17 02/12/17 02/13/17 08:00 16:00 00:00 Output Total 475 ml Balance -475 ml Physical Examination Skin: Incisions clean and dry scalp and abdomen. No signs of infection or complication. All dayanara have been removed. Muscle: Moves all 4 extremities well. Neuro: Pt awake. Pupils 3mm bilaterally reactive bilaterally. Verbalizing well. Follows simple commands well. He appears to have a right cranial nerve deficit, diplopia with right lateral gaze. Facial sensory motor testing intact Sensorimotor function intact throughout the upper and lower extremities Lab, Micro, Other Results 02/12/2017 CT scan head images reviewed by the undersigned. Agree with findings as noted below: Head CT 02/12/17 0800 Signed Impressions: Service Date/Time: Sunday, February 12, 2017 08:01 - CONCLUSION: Trace subarachnoid hemorrhage is seen within the high parietal region. No signs of infarct or mass. Best Cummings MD Chest X-Ray 01/30/17 0000 Signed Impressions: Service Date/Time: Monday, January 30, 2017 13:03 - CONCLUSION: 1. Minimal left basilar density slightly improved. Julio Stovall MD Medical Decision Making Impression and Plan Impression: Persistent headache following subarachnoid hemorrhage, PE ELECTRICAL ENGINEER shunt. Otherwise neurologically stable. 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 Mild residual subarachnoid blood along the convexities on follow-up CT scan of Plan: Findings assessment patient Continuing present pain medications The incisions are healing well. No further neurosurgical intervention anticipated at this point. Advised the patient that headaches could persist for at least a few more weeks, particularly with residual subarachnoid blood present on CT scan. Tutu Cassidy MD Feb 12, 2017 15:40
[2017-02-13] VITALS (7 sets, daily range): BP systolic 116–142; BP diastolic 77–90; PULSE 86–95; RESP 16–18; TEMP 97.3–98.4; O2SAT 97–99
[2017-02-13] MEDS: HEPARIN SODIUM - SQ 10,000 UNITS/ML VIAL SQ SCH ×3 (06:26→20:56)
[2017-02-13] MEDS: MUPIROCIN 2% CREAM 15 GM TOPICAL SCH ×2 (08:14→20:55)
[2017-02-13] MEDS: LACTOBACILLUS ACIDOPHILUS TAB PO SCH ×2 (08:30→20:55)
[2017-02-13] MEDS: METOPROLOL TARTRATE 50 MG TAB DOBHOFF SCH (08:30)
[2017-02-13] MEDS: ACETAMINOPHEN/HYDROcodone 325 MG/5 MG TAB PO PRN ×4 (08:30→20:55)
[2017-02-13] MEDS: ASPIRIN EC 81 MG TABEC PO SCH (08:30)
[2017-02-13] MEDS: FAMOTIDINE 20 MG TAB PO SCH ×2 (08:30→20:54)
[2017-02-13] MEDS: NYSTATIN SUSP 500,000 U/5 ML CUP SWISH-SWAL SCH ×4 (08:30→20:54)
[2017-02-13] MEDS: SODIUM CHLORIDE 0.9% FLUSH 10 ML FLUSH IV FLUSH SCH ×2 (08:31→20:54)
--- NOTE | 2017-02-13 12:12 | HHI.PR ---
Subjective Remarks Follow-up intracranial bleed 02/13/17-patient seen and examined, alert and oriented 3, per nurse report patient hasn't been eating much.afebrile Objective Vitals Vital Signs Date Time Temp Pulse Resp B/P (MAP) Pulse Ox O2 Delivery O2 Flow Rate FiO2 02/13/17 08:40 93 02/13/17 08:26 97.5 92 16 131/89 (103) 98 02/13/17 05:11 97.8 95 17 117/80 (92) 99 02/13/17 00:30 98.4 91 17 121/78 (92) 99 02/12/17 21:08 98.7 90 20 143/93 (110) 98 02/12/17 20:00 91 02/12/17 18:13 95 02/12/17 16:00 98.3 85 18 120/81 (94) 97 I/O 02/12/17 02/12/17 02/12/17 02/13/17 02/13/17 02/13/17 06:59 14:59 22:59 06:59 14:59 22:59 Intake Total 240 ml Output Total 400 ml 75 ml Balance -400 ml -75 ml 240 ml Intake Oral 240 ml Output Urine Total 400 ml 75 ml # Voids 5 2 # Bowel Movements 0 1 Imaging Last Impressions Head CT 02/12/17 0800 Signed Impressions: Service Date/Time: Sunday, February 12, 2017 08:01 - CONCLUSION: Trace subarachnoid hemorrhage is seen within the high parietal region. No signs of infarct or mass. Best Cummings MD Chest X-Ray 01/30/17 0000 Signed Impressions: Service Date/Time: Monday, January 30, 2017 13:03 - CONCLUSION: 1. Minimal left basilar density slightly improved. Juloi Stovall MD Objective Remarks GENERAL: NAD SKIN: Warm and dry. HEAD: Normocephalic. EYES: No scleral icterus. No injection or drainage. NECK: Supple, trachea midline. No JVD or lymphadenopathy. CARDIOVASCULAR: Regular rate and rhythm without murmurs, gallops, or rubs. RESPIRATORY: Breath sounds equal bilaterally. No accessory muscle use. GASTROINTESTINAL: Abdomen soft, non-tender, nondistended. MUSCULOSKELETAL: No cyanosis, or edema. BACK: Nontender without obvious deformity. No CVA tenderness. Procedures He was transferred to [facility]. The patient has now been transferred back here to [facility] after being evaluated by neurosurgery there. He had multiple procedures there. 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 He was status post tracheostomy on a trache collar. He is status post a TRANSLITERATOR shunt. May need a G-tube. He has a history of hyponatremia and has been recently placed on aspirin. A/P Problem List: (1) Subarachnoid hemorrhage ICD Code: I60.9 - Nontraumatic subarachnoid hemorrhage, unspecified Status: Acute (2) Peripheral vascular disease ICD Code: I73.9 - Peripheral vascular disease, unspecified (3) Hyponatremia ICD Code: E87.1 - Hypo-osmolality and hyponatremia (4) Leukocytosis ICD Code: D72.829 - Elevated white blood cell count, unspecified (5) Anxiety ICD Code: F41.9 - Anxiety disorder, unspecified (6) Dysphagia ICD Code: R13.10 - Dysphagia, unspecified Assessment and Plan 56-year-old male with subarachnoid hemorrhage Subarachnoid hemorrhage/Vertebral artery aneurysm, Status post coiling, ventriculoperitoneal shunt at [facility]. Continue aspirin. Discontinue Seroquel. Per neurosurgery, once stable, he can be transferred to rehabilitation. Repeat CT done on 02/12. Tylenol PRN. [place] for pain greater than 5 and to help him participate more with PT. Status post tracheostomy with a trach collar in place. Appreciate pulmonology following. Trach removed 02/05/17. Levsin PRN to help with secretions. Nutrition Speech therapy following. Started on regular diet, advance to mechanical soft with thin liquids Hypertension: Continue amlodipine and metoprolol. Controlled. GI prophylaxis: Switch to H2 mike. Stool softener PRN constipation. DVT PPx: Heparin Julio Crouch MD Feb 13, 2017 12:12
[2017-02-13] MEDS: [UNRECOGNIZED DRUG - REMARK] DOBHOFF SCH (12:18)
--- NOTE | 2017-02-13 13:20 | HHI.PR ---
Subjective Remarks alert no distress Trach. removed well tolerated Objective Vital Signs Date Time Temp Pulse Resp B/P (MAP) Pulse Ox O2 Delivery O2 Flow Rate FiO2 02/13/17 12:30 97.3 86 16 116/77 (90) 97 02/13/17 08:40 93 02/13/17 08:26 97.5 92 16 131/89 (103) 98 02/13/17 05:11 97.8 95 17 117/80 (92) 99 02/13/17 00:30 98.4 91 17 121/78 (92) 99 02/12/17 21:08 98.7 90 20 143/93 (110) 98 02/12/17 20:00 91 02/12/17 18:13 95 02/12/17 16:00 98.3 85 18 120/81 (94) 97 I/O 02/12/17 02/12/17 02/12/17 02/13/17 02/13/17 02/13/17 07:00 15:00 23:00 07:00 15:00 23:00 Intake Total 240 ml Output Total 400 ml 75 ml Balance -400 ml -75 ml 240 ml Intake Oral 240 ml Output Urine Total 400 ml 75 ml # Voids 5 2 # Bowel Movements 0 1 Objective Remarks GENERAL: SKIN: Warm and dry. HEAD: Atraumatic. Normocephalic. EYES: Pupils equal and round. No scleral icterus. No injection or drainage. ENT: No nasal bleeding or discharge. Mucous membranes pink and moist. NECK: Trachea midline. No JVD. CARDIOVASCULAR: Regular rate and rhythm. RESPIRATORY: No accessory muscle use. Clear to auscultation. Breath sounds equal bilaterally. GASTROINTESTINAL: Abdomen soft, non-tender, nondistended. Hepatic and splenic margins not palpable. MUSCULOSKELETAL: Extremities without clubbing, cyanosis, or edema. No obvious deformities. NEUROLOGICAL: Awake and alert. No obvious cranial nerve deficits. Motor grossly within normal limits. Five out of 5 muscle strength in the arms and legs. Normal speech. PSYCHIATRIC: Appropriate mood and affect; insight and judgment normal. Assessment and Plan Assessment and Plan respiratory failure S/P ICB PLAN O2 NEEDED PULM TOILET Katie Wilson MD Feb 13, 2017 13:20
[2017-02-14] VITALS (8 sets, daily range): BP systolic 111–138; BP diastolic 69–93; PULSE 86–100; RESP 16–18; TEMP 96.8–98.3; O2SAT 97–99
[2017-02-14] MEDS: ACETAMINOPHEN/HYDROcodone 325 MG/5 MG TAB PO PRN ×5 (03:31→23:15)
[2017-02-14] MEDS: HEPARIN SODIUM - SQ 10,000 UNITS/ML VIAL SQ SCH ×3 (05:50→21:16)
[2017-02-14] MEDS: MUPIROCIN 2% CREAM 15 GM TOPICAL SCH ×2 (09:00→21:16)
[2017-02-14] MEDS: LACTOBACILLUS ACIDOPHILUS TAB PO SCH ×2 (09:20→21:16)
[2017-02-14] MEDS: NYSTATIN SUSP 500,000 U/5 ML CUP SWISH-SWAL SCH ×4 (09:20→21:16)
[2017-02-14] MEDS: ASPIRIN EC 81 MG TABEC PO SCH (09:21)
[2017-02-14] MEDS: [UNRECOGNIZED DRUG - REMARK] DOBHOFF SCH (09:21)
[2017-02-14] MEDS: METOPROLOL TARTRATE 50 MG TAB DOBHOFF SCH (09:21)
[2017-02-14] MEDS: FAMOTIDINE 20 MG TAB PO SCH ×2 (09:21→21:16)
[2017-02-14] MEDS: SODIUM CHLORIDE 0.9% FLUSH 10 ML FLUSH IV FLUSH SCH ×2 (09:28→21:16)
--- NOTE | 2017-02-14 09:35 | HHI.PR ---
Subjective Remarks Follow-up visit intracranial bleed, vertebral artery aneurysm, status post coiling. Patient seen and examined today. Reports he is doing well. Sitting up out of bed to chair. States his nurse is always on top of him encouraging him to eat. Denies pain and discomfort. Denies SOB/ dyspnea. Denies chest pain , palpitations, dizziness. Denies fevers, chills, n/v/d. Denies difficulty swallowing. Objective Vitals Vital Signs Date Time Temp Pulse Resp B/P (MAP) Pulse Ox O2 Delivery O2 Flow Rate FiO2 02/14/17 08:00 97.3 88 18 135/93 (107) 97 02/14/17 05:14 98.3 91 18 138/89 (105) 97 02/14/17 01:12 96.8 89 18 137/89 (105) 99 02/14/17 00:16 100 02/13/17 21:02 97.9 91 18 142/90 (107) 97 02/13/17 16:05 98.0 89 16 118/83 (95) 97 02/13/17 12:30 97.3 86 16 116/77 (90) 97 I/O 02/13/17 02/13/17 02/13/17 02/14/17 02/14/17 02/14/17 06:59 14:59 22:59 06:59 14:59 22:59 Intake Total 240 ml 240 ml Balance 240 ml 240 ml Intake Oral 240 ml 240 ml # Voids 2 2 # Bowel Movements 1 Imaging Last Impressions Head CT 02/12/17 0800 Signed Impressions: Service Date/Time: Sunday, February 12, 2017 08:01 - CONCLUSION: Trace subarachnoid hemorrhage is seen within the high parietal region. No signs of infarct or mass. Best Cummings MD Chest X-Ray 01/30/17 0000 Signed Impressions: Service Date/Time: Monday, January 30, 2017 13:03 - CONCLUSION: 1. Minimal left basilar density slightly improved. Julio Stovall MD Objective Remarks GENERAL: This is a well-nourished, well-developed patient, in no apparent distress. SKIN: Warm and dry. Multiple incision sites in his hand clean dry and intact. HEENT: Normocephalic. Pupils equal round and reactive. Nose without bleeding. Airway patent. NECK: Trachea midline. No JVD. Supple. CARDIOVASCULAR: Regular rate and rhythm without murmurs, gallops, or rubs. RESPIRATORY: Diminished bases. No wheezes, rales, or rhonchi. GASTROINTESTINAL: Abdomen soft, non-tender, nondistended. Bowel Sounds normoactive x4. MUSCULOSKELETAL: Extremities without clubbing, cyanosis, or edema. NEUROLOGICAL: Awake and alert. Oriented to place, person. Moves all extremities. Normal speech. Procedures He was transferred to [facility]. The patient has now been transferred back here to [facility] after being evaluated by neurosurgery there. He had multiple procedures there. 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 He was status post tracheostomy on a trache collar. 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 May need a G-tube. He has a history of hyponatremia and has been recently placed on aspirin. A/P Problem List: (1) Subarachnoid hemorrhage ICD Code: I60.9 - Nontraumatic subarachnoid hemorrhage, unspecified Status: Acute (2) Peripheral vascular disease ICD Code: I73.9 - Peripheral vascular disease, unspecified (3) Hyponatremia ICD Code: E87.1 - Hypo-osmolality and hyponatremia (4) Leukocytosis ICD Code: D72.829 - Elevated white blood cell count, unspecified (5) Anxiety ICD Code: F41.9 - Anxiety disorder, unspecified (6) Dysphagia ICD Code: R13.10 - Dysphagia, unspecified Assessment and Plan 56-year-old male with subarachnoid hemorrhage Subarachnoid hemorrhage/Vertebral artery aneurysm, - Status post coiling, ventriculoperitoneal shunt at [facility]. - Continue aspirin. Discontinue Seroquel. - Per neurosurgery, once stable, he can be transferred to rehabilitation. - Repeat CT done on 02/12. Showed trace subarachnoid hemorrhage seen within the high parietal region. No signs of infarct or mass. - Tylenol PRN. [place] for pain greater than 5 and to help him participate more with PT. - Needs rehabilitation placement Status post tracheostomy - Decannulated - Appreciate pulmonology following. Trach removed 02/05/17. - Levsin PRN to help with secretions - Tolerating room air. No respiratory issues. Nutrition Poor appetite - Speech therapy following. - On regular diet, advance to mechanical soft with thin liquids - Continue ensure with meals Hypertension - Continue amlodipine and metoprolol. - Controlled. GI prophylaxis: Pepcid. Stool softener PRN constipation. DVT PPx: Heparin Full code Discussed with patient, nursing, Dr. Goel Discharge Planning Plan to DC to rehabilitation when cleared by neurosurgery. Payor source hindering DC to [place]. CM helping with DC planning. Judith Day Feb 14, 2017 09:35
[2017-02-15] VITALS (8 sets, daily range): BP systolic 106–156; BP diastolic 68–95; PULSE 80–92; RESP 16–20; TEMP 97.4–99.3; O2SAT 97–99
[2017-02-15] MEDS: HEPARIN SODIUM - SQ 10,000 UNITS/ML VIAL SQ SCH ×3 (05:56→20:19)
[2017-02-15] MEDS: MUPIROCIN 2% CREAM 15 GM TOPICAL SCH ×2 (09:00→20:19)
[2017-02-15] MEDS: METOPROLOL TARTRATE 50 MG TAB DOBHOFF SCH (09:10)
[2017-02-15] MEDS: FAMOTIDINE 20 MG TAB PO SCH ×2 (09:10→20:18)
[2017-02-15] MEDS: ASPIRIN EC 81 MG TABEC PO SCH (09:10)
[2017-02-15] MEDS: NYSTATIN SUSP 500,000 U/5 ML CUP SWISH-SWAL SCH ×4 (09:10→20:19)
[2017-02-15] MEDS: LACTOBACILLUS ACIDOPHILUS TAB PO SCH ×2 (09:10→20:18)
[2017-02-15] MEDS: ACETAMINOPHEN/HYDROcodone 325 MG/5 MG TAB PO PRN ×3 (09:11→20:19)
[2017-02-15] MEDS: SODIUM CHLORIDE 0.9% FLUSH 10 ML FLUSH IV FLUSH SCH ×2 (09:11→20:18)
--- NOTE | 2017-02-15 10:33 | HHI.PR ---
Subjective Remarks Follow-up visit intracranial bleed, vertebral artery aneurysm, status post coiling. Patient seen and examined today. Speech therapist at the bedside. Patient states his doing well. Complaints of occasional headaches but he says it comes and goes. Also has double vision when both eyes are open but when one eye is covered patient states that he can clearly see. Discussed with patient' s effect of intracranial bleed - headaches, double vision. Denies SOB/ dyspnea. Denies chest pain, palpitations, headaches, dizziness. Denies fevers, chills, n/v/d. Denies dysuria. Objective Vitals Vital Signs Date Time Temp Pulse Resp B/P (MAP) Pulse Ox O2 Delivery O2 Flow Rate FiO2 02/15/17 09:19 80 02/15/17 09:15 98.6 87 20 143/95 (111) 99 02/15/17 05:55 99.3 84 17 115/81 (92) 98 02/15/17 03:07 81 02/15/17 00:30 98.0 80 16 156/92 (113) 99 02/14/17 20:30 98.1 86 16 123/69 (87) 99 02/14/17 16:05 98.1 86 18 111/76 (88) 97 02/14/17 12:40 98.3 91 18 115/78 (90) 97 I/O 02/14/17 02/14/17 02/14/17 02/15/17 02/15/17 02/15/17 07:00 15:00 23:00 07:00 15:00 23:00 Intake Total 480 ml 360 ml Balance 480 ml 360 ml Intake Oral 480 ml 360 ml # Voids 2 4 # Bowel Movements 1 1 Imaging Last Impressions Head CT 02/12/17 0800 Signed Impressions: Service Date/Time: Sunday, February 12, 2017 08:01 - CONCLUSION: Trace subarachnoid hemorrhage is seen within the high parietal region. No signs of infarct or mass. Best Cummings MD Chest X-Ray 01/30/17 0000 Signed Impressions: Service Date/Time: Monday, January 30, 2017 13:03 - CONCLUSION: 1. Minimal left basilar density slightly improved. Julio Stovall MD Objective Remarks GENERAL: This is a well-nourished, well-developed patient, in no apparent distress. SKIN: Warm and dry. Multiple incision sites in his hand clean dry and intact. HEENT: Normocephalic. Pupils equal round and reactive. Nose without bleeding. Airway patent. NECK: Trachea midline. No JVD. Supple. CARDIOVASCULAR: Regular rate and rhythm without murmurs, gallops, or rubs. RESPIRATORY: Diminished bases. No wheezes, rales, or rhonchi. GASTROINTESTINAL: Abdomen soft, non-tender, nondistended. Bowel Sounds normoactive x4. MUSCULOSKELETAL: Extremities without clubbing, cyanosis, or edema. NEUROLOGICAL: Awake and alert. Oriented to place, person, time. High cognitive function. Moves all extremities. Normal speech. Procedures He was transferred to [facility]. The patient has now been transferred back here to [facility] after being evaluated by neurosurgery there. He had multiple procedures there. 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 He was status post tracheostomy on a trache collar. 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 May need a G-tube. He has a history of hyponatremia and has been recently placed on aspirin. A/P Problem List: (1) Subarachnoid hemorrhage ICD Code: I60.9 - Nontraumatic subarachnoid hemorrhage, unspecified Status: Acute (2) Peripheral vascular disease ICD Code: I73.9 - Peripheral vascular disease, unspecified (3) Hyponatremia ICD Code: E87.1 - Hypo-osmolality and hyponatremia (4) Leukocytosis ICD Code: D72.829 - Elevated white blood cell count, unspecified (5) Anxiety ICD Code: F41.9 - Anxiety disorder, unspecified (6) Dysphagia ICD Code: R13.10 - Dysphagia, unspecified Assessment and Plan 56-year-old male with subarachnoid hemorrhage Subarachnoid hemorrhage/Vertebral artery aneurysm Headaches, double vision - Status post coiling, ventriculoperitoneal shunt at [facility]. - Continue aspirin. Discontinue Seroquel. - Per neurosurgery, once stable, he can be transferred to rehabilitation. - Repeat CT done on 02/12. Showed trace subarachnoid hemorrhage seen within the high parietal region. No signs of infarct or mass. - Tylenol PRN. [place] for pain greater than 5 and to help him participate more with PT. - Needs rehabilitation placement. Spoke with case management yesterday and awaiting for [facility] for approval. - Discussed extensively with patient regarding headache management and double vision management. We'll do a referral for neuro-ophthalmology when discharged. Status post tracheostomy - Decannulated - Appreciate pulmonology following. Trach removed 02/05/17. - Levsin PRN to help with secretions - Tolerating room air. No respiratory issues. Nutrition Poor appetite - Speech therapy following. - On regular diet, advance to mechanical soft with thin liquids - Continue ensure with meals Hypertension - Continue amlodipine and metoprolol. - Controlled. GI prophylaxis: Pepcid. Stool softener PRN constipation. DVT PPx: Heparin Full code Discussed with patient, nursing, Dr. Crouch Discharge Planning Plan to DC to rehabilitation, pending approval with [facility]. MILDRED helping with DC planning. Judith Day Feb 15, 2017 10:33
[2017-02-15] MEDS: [UNRECOGNIZED DRUG - REMARK] DOBHOFF SCH (12:37)
--- NOTE | 2017-02-15 15:14 | HHI.PR ---
Subjective Remarks alert no distress Trach. removed well tolerated Objective Vital Signs Date Time Temp Pulse Resp B/P (MAP) Pulse Ox O2 Delivery O2 Flow Rate FiO2 02/15/17 13:00 97.4 82 20 106/77 (87) 99 02/15/17 09:19 80 02/15/17 09:15 98.6 87 20 143/95 (111) 99 02/15/17 05:55 99.3 84 17 115/81 (92) 98 02/15/17 03:07 81 02/15/17 00:30 98.0 80 16 156/92 (113) 99 02/14/17 20:30 98.1 86 16 123/69 (87) 99 02/14/17 16:05 98.1 86 18 111/76 (88) 97 I/O 02/14/17 02/14/17 02/14/17 02/15/17 02/15/17 02/15/17 07:00 15:00 23:00 07:00 15:00 23:00 Intake Total 480 ml 360 ml Balance 480 ml 360 ml Intake Oral 480 ml 360 ml # Voids 2 4 1 # Bowel Movements 1 1 Objective Remarks GENERAL: SKIN: Warm and dry. HEAD: Atraumatic. Normocephalic. EYES: Pupils equal and round. No scleral icterus. No injection or drainage. ENT: No nasal bleeding or discharge. Mucous membranes pink and moist. NECK: Trachea midline. No JVD. CARDIOVASCULAR: Regular rate and rhythm. RESPIRATORY: No accessory muscle use. Clear to auscultation. Breath sounds equal bilaterally. GASTROINTESTINAL: Abdomen soft, non-tender, nondistended. Hepatic and splenic margins not palpable. MUSCULOSKELETAL: Extremities without clubbing, cyanosis, or edema. No obvious deformities. NEUROLOGICAL: Awake and alert. No obvious cranial nerve deficits. Motor grossly within normal limits. Five out of 5 muscle strength in the arms and legs. Normal speech. PSYCHIATRIC: Appropriate mood and affect; insight and judgment normal. Assessment and Plan Assessment and Plan respiratory failure S/P ICB PLAN O2 NEEDED PULM TOILET Katie Wilson MD Feb 15, 2017 15:14
[2017-02-16] VITALS (8 sets, daily range): BP systolic 107–132; BP diastolic 67–90; PULSE 78–106; RESP 18–20; TEMP 97.7–98.4; O2SAT 96–99
[2017-02-16] MEDS: HEPARIN SODIUM - SQ 10,000 UNITS/ML VIAL SQ SCH ×3 (06:09→21:59)
[2017-02-16] MEDS: METOPROLOL TARTRATE 50 MG TAB DOBHOFF SCH (09:49)
[2017-02-16] MEDS: FAMOTIDINE 20 MG TAB PO SCH ×2 (09:49→19:53)
[2017-02-16] MEDS: LACTOBACILLUS ACIDOPHILUS TAB PO SCH ×2 (09:49→19:53)
[2017-02-16] MEDS: NYSTATIN SUSP 500,000 U/5 ML CUP SWISH-SWAL SCH ×4 (09:49→19:53)
[2017-02-16] MEDS: ACETAMINOPHEN/HYDROcodone 325 MG/5 MG TAB PO PRN ×4 (09:49→22:00)
[2017-02-16] MEDS: MUPIROCIN 2% CREAM 15 GM TOPICAL SCH ×2 (09:50→19:53)
[2017-02-16] MEDS: SODIUM CHLORIDE 0.9% FLUSH 10 ML FLUSH IV FLUSH SCH ×2 (09:50→19:53)
[2017-02-16] MEDS: ASPIRIN EC 81 MG TABEC PO SCH (09:50)
--- NOTE | 2017-02-16 10:29 | HHI.PR ---
Subjective Remarks Follow-up visit intracranial bleed, vertebral artery aneurysm, status post coiling. Patient seen and examined today. States he is doing well. Discuss with patient plans of discharge. He was not accepted at [facility]. States his evacuated to [place]. Nurse at the bedside stated patient has been ambulating the hallways this am. No acute issues overnight. Patient denies any complaints. Objective Vitals Vital Signs Date Time Temp Pulse Resp B/P (MAP) Pulse Ox O2 Delivery O2 Flow Rate FiO2 02/16/17 09:04 97.7 106 20 126/90 (102) 96 02/16/17 05:00 102 02/16/17 04:00 98.2 95 18 132/87 (102) 97 02/16/17 00:00 98.3 88 18 107/67 (80) 97 02/15/17 20:00 98.5 92 18 110/68 (82) 97 02/15/17 15:52 98.7 85 20 111/76 (88) 97 02/15/17 13:00 97.4 82 20 106/77 (87) 99 I/O 02/15/17 02/15/17 02/15/17 02/16/17 02/16/17 02/16/17 06:59 14:59 22:59 06:59 14:59 22:59 Intake Total 360 ml Balance 360 ml Intake Oral 360 ml # Voids 4 1 2 # Bowel Movements 1 Imaging Last Impressions Head CT 02/12/17 0800 Signed Impressions: Service Date/Time: Sunday, February 12, 2017 08:01 - CONCLUSION: Trace subarachnoid hemorrhage is seen within the high parietal region. No signs of infarct or mass. Best Cummings MD Chest X-Ray 01/30/17 0000 Signed Impressions: Service Date/Time: Monday, January 30, 2017 13:03 - CONCLUSION: 1. Minimal left basilar density slightly improved. Julio Stovall MD Objective Remarks GENERAL: This is a well-nourished, well-developed patient, in no apparent distress. SKIN: Warm and dry. Multiple incision sites in his hand clean dry and intact. HEENT: Normocephalic. Pupils equal round and reactive. Nose without bleeding. Airway patent. NECK: Trachea midline. No JVD. Supple. CARDIOVASCULAR: Regular rate and rhythm without murmurs, gallops, or rubs. RESPIRATORY: Diminished bases. No wheezes, rales, or rhonchi. GASTROINTESTINAL: Abdomen soft, non-tender, nondistended. Bowel Sounds normoactive x4. MUSCULOSKELETAL: Extremities without clubbing, cyanosis, or edema. NEUROLOGICAL: Awake and alert. Oriented to place, person, time. High cognitive function. Moves all extremities. Normal speech. Procedures He was transferred to [facility]. The patient has now been transferred back here to [facility] after being evaluated by neurosurgery there. He had multiple procedures there. 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 He was status post tracheostomy on a trache collar. 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 May need a G-tube. He has a history of hyponatremia and has been recently placed on aspirin. A/P Problem List: (1) Subarachnoid hemorrhage ICD Code: I60.9 - Nontraumatic subarachnoid hemorrhage, unspecified Status: Acute (2) Peripheral vascular disease ICD Code: I73.9 - Peripheral vascular disease, unspecified (3) Hyponatremia ICD Code: E87.1 - Hypo-osmolality and hyponatremia (4) Leukocytosis ICD Code: D72.829 - Elevated white blood cell count, unspecified (5) Anxiety ICD Code: F41.9 - Anxiety disorder, unspecified (6) Dysphagia ICD Code: R13.10 - Dysphagia, unspecified Assessment and Plan 56-year-old male with subarachnoid hemorrhage Subarachnoid hemorrhage/Vertebral artery aneurysm Headaches, double vision - Status post coiling, ventriculoperitoneal shunt at [facility]. - Continue aspirin. Discontinue Seroquel. - Per neurosurgery, once stable, he can be transferred to rehabilitation. - Repeat CT done on 02/12. Showed trace subarachnoid hemorrhage seen within the high parietal region. No signs of infarct or mass. - Tylenol PRN. [place] for pain greater than 5 and to help him participate more with PT. - Needs rehabilitation placement. Spoke with case management yesterday and awaiting for [facility] for approval. - Discussed extensively with patient regarding headache management and double vision management. We'll do a referral for neuro-ophthalmology when discharged. - Eye patch to aid with double vision Status post tracheostomy - Decannulated - Appreciate pulmonology following. Trach removed 02/05/17. - Levsin PRN to help with secretions - Tolerating room air. No respiratory issues. Nutrition Poor appetite - Speech therapy following. - On regular diet, advance to mechanical soft with thin liquids - Continue ensure with meals Hypertension - Continue amlodipine and metoprolol. - Controlled. GI prophylaxis: Pepcid. Stool softener PRN constipation. DVT PPx: Heparin Full code Discussed with patient, nursing, Dr. Crouch Discharge Planning Plan to DC home and patient will do outpatient rehab. He is highly functional and does not qualify for [facility]. Placed a call with to discuss patient DC. As per patient is evacuating to [place], he has no one home. Judith Day Feb 16, 2017 10:28
[2017-02-16] MEDS: [UNRECOGNIZED DRUG - REMARK] DOBHOFF SCH (14:09)
--- NOTE | 2017-02-16 15:47 | HHI.NSPN ---
(Korey Pascal) History Chief Complaint: Headache. (Korey Pascal) Interval History 02/11 & 02/12: Patient is status post occlusion of left vertebral artery aneurysm following subarachnoid hemorrhage. Status post ventriculoperitoneal shunt for secondary hydrocephalus. Complains primarily of persistent severe headache. 02/16: Patient asleep but awakens to verbal stimuli and is alert after that. He still complains of a headache as well as double vision with both eyes. (Korey Pascal) System Review Comments Constitutional: Patient denies any fever or chills. HEENT: Patient complains of double vision to both eyes. Respiratory: Patient denies any shortness of breath or productive cough. Cardiovascular: Patient denies any chest pain, palpitations or irregular heartbeat. Gastrointestinal: Patient complains of abdominal wall pain secondary to Lovenox injections. He denies any nausea, vomiting or incontinence of stool. Genitourinary: Patient denies any incontinence of urine. Musculoskeletal: Patient denies any pain or weakness to the extremities. Neurologic: Patient complains of a headache. He denies any dizziness, numbness or tingling. (Korey Pascal) Exam Results 02/14/17 02/14/17 02/15/17 02/15/17 02/16/17 02/16/17 05:59 17:59 05:59 17:59 05:59 17:59 Intake Total 480 ml 360 ml Balance 480 ml 360 ml Intake Oral 480 ml 360 ml # Voids 2 4 1 2 # Bowel Movements 1 1 Vital Signs Date Time Temp Pulse Resp B/P (MAP) Pulse Ox O2 Delivery O2 Flow Rate FiO2 02/16/17 12:29 98.0 78 20 126/76 (93) 99 02/16/17 09:04 97.7 106 20 126/90 (102) 96 02/16/17 08:00 93 02/16/17 05:00 102 02/16/17 04:00 98.2 95 18 132/87 (102) 97 02/16/17 00:00 98.3 88 18 107/67 (80) 97 02/15/17 20:00 98.5 92 18 110/68 (82) 97 02/15/17 15:52 98.7 85 20 111/76 (88) 97 02/15/17 13:00 97.4 82 20 106/77 (87) 99 02/15/17 09:19 80 02/15/17 09:15 98.6 87 20 143/95 (111) 99 02/15/17 05:55 99.3 84 17 115/81 (92) 98 02/15/17 03:07 81 02/15/17 00:30 98.0 80 16 156/92 (113) 99 02/14/17 20:30 98.1 86 16 123/69 (87) 99 02/14/17 16:05 98.1 86 18 111/76 (88) 97 02/14/17 12:40 98.3 91 18 115/78 (90) 97 02/14/17 10:07 90 02/14/17 08:00 97.3 88 18 135/93 (107) 97 02/14/17 05:14 98.3 91 18 138/89 (105) 97 02/14/17 01:12 96.8 89 18 137/89 (105) 99 02/14/17 00:16 100 02/13/17 21:02 97.9 91 18 142/90 (107) 97 02/13/17 16:05 98.0 89 16 118/83 (95) 97 (Korey Pascal) Physical Examination GENERAL: The patient is asleep but awakens to verbal stimuli, after that he is alert and readily interacts. His affect is essentially normal. NAD. SKIN: Warm, dry & intact w/a well-healed surgical incision s/p GRATING MACHINE OPERATOR shunt placement. HEENT: Normocephalic, atraumatic. NECK: Full active ROM w/o pain, no JVD, trachea midline. CARDIOVASCULAR: S1S2 w/RRR w/o M/G/R, radial & pedal pulses 2+ bilaterally, cap refill < 2 sec, no pedal edema. RESPIRATORY: CTAB w/o W/R/R, equal excursion, nonlaboured, on RA. GASTROINTESTINAL: Abdomen soft, nontender, positive bowel sounds. MUSCULOSKELETAL: CHEW w/o difficulty, no evident deformity or clubbing. NEUROLOGICAL: AAOx3. Speech clear & appropriate although he does have some difficulty finding the right word. PERRLA, apparent right CN deficit. Sensation intact to light touch to all extremities. Strength normal major flexion and extension groups. (Korey Pascal) Medical Decision Making Impression and Plan Impression: Patient continues to do well and is essentially neurologically stable. Continues to have persistent headache. Complains of diplopia to both eyes. Apparent right CN palsy. Apparent expressive aphasia. History of TBI w/SAH s/p GRATING MACHINE OPERATOR shunt placement. Mild residual subarachnoid blood along the convexities on follow-up CT scan of . Plan: Discussed plan of care with patient. Primary management per Hospitalist. Continue present pain medications. No further neurosurgical intervention anticipated at this point. Patient is able to be discharge from NSGY's perspective with further therapy. (Korey Pascal) Attending Statement The exam, history, and the medical decision-making described in the above note were completed with the assistance of the mid-level provider. I reviewed and agree with the findings presented. I attest that I had a [id number] encounter with the patient on the same day, and personally performed and documented my assessment and findings in the medical record. Exam stable. Probable right cranial nerve deficit Discussed with patient Stable for discharge from neurosurgery standpoint (Tutu Cassidy MD) Korey Pascal Feb 16, 2017 15:47 Tutu Cassidy MD Mar 20, 2017 07:21
[2017-02-16] MEDS ORDERED: GETGO ROLLING W1 MI1 (16:41)
[2017-02-17] VITALS (7 sets, daily range): BP systolic 112–149; BP diastolic 73–92; PULSE 79–99; RESP 18–20; TEMP 97–98.3; O2SAT 96–99
[2017-02-17] MEDS: HEPARIN SODIUM - SQ 10,000 UNITS/ML VIAL SQ SCH ×3 (06:10→22:07)
[2017-02-17] MEDS: ACETAMINOPHEN/HYDROcodone 325 MG/5 MG TAB PO PRN ×4 (06:11→22:05)
[2017-02-17] MEDS: LACTOBACILLUS ACIDOPHILUS TAB PO SCH ×2 (09:00→22:06)
[2017-02-17] MEDS: METOPROLOL TARTRATE 50 MG TAB DOBHOFF SCH (09:00)
[2017-02-17] MEDS: SODIUM CHLORIDE 0.9% FLUSH 10 ML FLUSH IV FLUSH SCH ×2 (09:00→22:08)
[2017-02-17] MEDS: FAMOTIDINE 20 MG TAB PO SCH ×2 (09:00→22:04)
[2017-02-17] MEDS: MUPIROCIN 2% CREAM 15 GM TOPICAL SCH ×2 (09:00→22:10)
[2017-02-17] MEDS: ASPIRIN EC 81 MG TABEC PO SCH (09:00)
[2017-02-17] MEDS: NYSTATIN SUSP 500,000 U/5 ML CUP SWISH-SWAL SCH ×4 (09:00→22:06)
--- NOTE | 2017-02-17 09:42 | HHI.PR ---
Subjective Remarks Follow-up Subarachnoid hemorrhage/Vertebral artery aneurysm 02/17/17-patient seen and examined, still complains of headaches and double vision. Afebrile Objective Vitals Vital Signs Date Time Temp Pulse Resp B/P (MAP) Pulse Ox O2 Delivery O2 Flow Rate FiO2 02/17/17 08:46 98.0 79 20 131/86 (101) 99 02/17/17 04:00 97.0 94 18 149/92 (111) 96 02/17/17 00:50 85 02/17/17 00:00 98.1 79 18 115/75 (88) 99 02/16/17 20:00 98.3 85 18 117/77 (90) 99 02/16/17 16:16 98.4 80 20 121/70 (87) 99 02/16/17 12:29 98.0 78 20 126/76 (93) 99 I/O 02/16/17 02/16/17 02/16/17 02/17/17 02/17/17 02/17/17 07:00 15:00 23:00 07:00 15:00 23:00 Intake Total 118 ml Balance 118 ml Intake Oral 118 ml # Voids 2 3 # Bowel Movements 1 Objective Remarks GENERAL: NAD SKIN: Warm and dry. HEAD: Normocephalic. EYES: No scleral icterus. No injection or drainage. NECK: Supple, trachea midline. No JVD or lymphadenopathy. CARDIOVASCULAR: Regular rate and rhythm without murmurs, gallops, or rubs. RESPIRATORY: Breath sounds equal bilaterally. No accessory muscle use. GASTROINTESTINAL: Abdomen soft, non-tender, nondistended. MUSCULOSKELETAL: No cyanosis, or edema. BACK: Nontender without obvious deformity. No CVA tenderness. Procedures He was transferred to [facility]. The patient has now been transferred back here to [facility] after being evaluated by neurosurgery there. He had multiple procedures there. 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 He was status post tracheostomy on a trache collar. He is status post a ROCKET MOTOR TESTER shunt. May need a G-tube. He has a history of hyponatremia and has been recently placed on aspirin. A/P Problem List: (1) Subarachnoid hemorrhage ICD Code: I60.9 - Nontraumatic subarachnoid hemorrhage, unspecified Status: Acute (2) Peripheral vascular disease ICD Code: I73.9 - Peripheral vascular disease, unspecified (3) Hyponatremia ICD Code: E87.1 - Hypo-osmolality and hyponatremia (4) Leukocytosis ICD Code: D72.829 - Elevated white blood cell count, unspecified (5) Anxiety ICD Code: F41.9 - Anxiety disorder, unspecified (6) Dysphagia ICD Code: R13.10 - Dysphagia, unspecified Assessment and Plan 56-year-old male with subarachnoid hemorrhage Subarachnoid hemorrhage/Vertebral artery aneurysm Headaches, double vision - Status post coiling, ventriculoperitoneal shunt at [facility]. - Continue aspirin. - Per neurosurgery, once stable, he can be transferred to rehabilitation. - Repeat CT done on 02/12. Showed trace subarachnoid hemorrhage seen within the high parietal region. No signs of infarct or mass. - Tylenol PRN. [place] for pain greater than 5 and to help him participate more with PT. - Needs rehabilitation placement. awaiting for [facility] for approval. - We'll do a referral for neuro-ophthalmology when discharged. Status post tracheostomy - Decannulated - Appreciate pulmonology following. Trach removed 02/05/17. - Levsin PRN to help with secretions - Tolerating room air. No respiratory issues. Nutrition Poor appetite - Speech therapy following. - On regular diet, advance to mechanical soft with thin liquids - Continue ensure with meals Hypertension - Continue amlodipine and metoprolol. - Controlled. GI prophylaxis: Pepcid. Stool softener PRN constipation. DVT PPx: Heparin Julio Crouch MD Feb 17, 2017 09:42
[2017-02-17] MEDS: [UNRECOGNIZED DRUG - REMARK] DOBHOFF SCH (20:45)
[2017-02-18] VITALS (7 sets, daily range): BP systolic 116–128; BP diastolic 68–82; PULSE 75–81; RESP 16–20; TEMP 97.9–98.8; O2SAT 95–99
[2017-02-18] MEDS: HEPARIN SODIUM - SQ 10,000 UNITS/ML VIAL SQ SCH ×3 (07:04→23:06)
[2017-02-18] MEDS: LACTOBACILLUS ACIDOPHILUS TAB PO SCH ×2 (08:46→20:28)
[2017-02-18] MEDS: ASPIRIN EC 81 MG TABEC PO SCH (08:46)
[2017-02-18] MEDS: METOPROLOL TARTRATE 50 MG TAB DOBHOFF SCH (08:46)
[2017-02-18] MEDS: FAMOTIDINE 20 MG TAB PO SCH ×2 (08:46→20:28)
[2017-02-18] MEDS: SODIUM CHLORIDE 0.9% FLUSH 10 ML FLUSH IV FLUSH SCH ×2 (08:47→20:27)
[2017-02-18] MEDS: NYSTATIN SUSP 500,000 U/5 ML CUP SWISH-SWAL SCH ×4 (08:56→20:28)
[2017-02-18] MEDS: MUPIROCIN 2% CREAM 15 GM TOPICAL SCH ×2 (10:31→20:29)
--- NOTE | 2017-02-18 11:36 | HHI.PR ---
Subjective Remarks Follow-up Subarachnoid hemorrhage/Vertebral artery aneurysm 02/17/17-patient seen and examined, still complains of headaches and double vision. Afebrile 02/18/17-patient seen and examined; states he is very anxious and depressed. Continue to have headaches. Objective Vitals Vital Signs Date Time Temp Pulse Resp B/P (MAP) Pulse Ox O2 Delivery O2 Flow Rate FiO2 02/18/17 08:00 97.9 80 18 126/82 (97) 97 02/18/17 05:46 80 02/18/17 04:00 98.5 79 18 119/68 (85) 97 02/18/17 00:00 98.3 79 18 128/80 (96) 99 02/17/17 20:00 98.2 85 18 136/88 (104) 98 02/17/17 16:44 97.6 80 20 124/73 (90) 96 02/17/17 11:58 98.3 99 20 112/86 (95) 98 I/O 02/17/17 02/17/17 02/17/17 02/18/17 02/18/17 02/18/17 07:00 15:00 23:00 07:00 15:00 23:00 Intake Total 240 ml 120 ml Balance 240 ml 120 ml Intake Oral 240 ml 120 ml # Voids 3 3 1 Objective Remarks GENERAL: NAD SKIN: Warm and dry. HEAD: Normocephalic. EYES: No scleral icterus. No injection or drainage. NECK: Supple, trachea midline. No JVD or lymphadenopathy. CARDIOVASCULAR: Regular rate and rhythm without murmurs, gallops, or rubs. RESPIRATORY: Breath sounds equal bilaterally. No accessory muscle use. GASTROINTESTINAL: Abdomen soft, non-tender, nondistended. MUSCULOSKELETAL: No cyanosis, or edema. BACK: Nontender without obvious deformity. No CVA tenderness. Procedures He was transferred to [facility]. The patient has now been transferred back here to [facility] after being evaluated by neurosurgery there. He had multiple procedures there. 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 He was status post tracheostomy on a trache collar. He is status post a CLOTH PICKER shunt. May need a G-tube. He has a history of hyponatremia and has been recently placed on aspirin. A/P Problem List: (1) Subarachnoid hemorrhage ICD Code: I60.9 - Nontraumatic subarachnoid hemorrhage, unspecified Status: Acute (2) Peripheral vascular disease ICD Code: I73.9 - Peripheral vascular disease, unspecified (3) Hyponatremia ICD Code: E87.1 - Hypo-osmolality and hyponatremia (4) Leukocytosis ICD Code: D72.829 - Elevated white blood cell count, unspecified (5) Anxiety ICD Code: F41.9 - Anxiety disorder, unspecified (6) Dysphagia ICD Code: R13.10 - Dysphagia, unspecified Assessment and Plan 56-year-old male with subarachnoid hemorrhage Subarachnoid hemorrhage/Vertebral artery aneurysm Headaches, double vision - Status post coiling, ventriculoperitoneal shunt at [facility]. - Continue aspirin. - Per neurosurgery, once stable, he can be transferred to rehabilitation. - Repeat CT done on 02/12. Showed trace subarachnoid hemorrhage seen within the high parietal region. No signs of infarct or mass. - Needs rehabilitation placement. awaiting for [facility] for approval. - We'll do a referral for neuro-ophthalmology when discharged. Status post tracheostomy - Decannulated - Appreciate pulmonology following. Trach removed 02/05/17. - Levsin PRN to help with secretions Nutrition Poor appetite - Speech therapy following. - On regular diet, advance to mechanical soft with thin liquids - Continue ensure with meals Hypertension - Continue amlodipine and metoprolol. - Controlled. Depression Start Low-dose Xanax when necessary and consider Lexapro GI prophylaxis: Pepcid. Stool softener PRN constipation. DVT PPx: Heparin Julio Crouch MD Feb 18, 2017 11:36
[2017-02-18] MEDS: ACETAMINOPHEN/HYDROcodone 325 MG/5 MG TAB PO PRN (14:55)
[2017-02-18] MEDS: [UNRECOGNIZED DRUG - REMARK] DOBHOFF SCH (15:00)
--- NOTE | 2017-02-18 15:03 | HHI.PR ---
Subjective Remarks alert no distress Trach. removed well tolerated Objective Vital Signs Date Time Temp Pulse Resp B/P (MAP) Pulse Ox O2 Delivery O2 Flow Rate FiO2 02/18/17 12:00 98.8 81 16 118/78 (91) 95 02/18/17 08:00 97.9 80 18 126/82 (97) 97 02/18/17 05:46 80 02/18/17 04:00 98.5 79 18 119/68 (85) 97 02/18/17 00:00 98.3 79 18 128/80 (96) 99 02/17/17 20:00 98.2 85 18 136/88 (104) 98 02/17/17 16:44 97.6 80 20 124/73 (90) 96 I/O 02/17/17 02/17/17 02/17/17 02/18/17 02/18/17 02/18/17 07:00 15:00 23:00 07:00 15:00 23:00 Intake Total 240 ml 120 ml Balance 240 ml 120 ml Intake Oral 240 ml 120 ml # Voids 3 3 1 Objective Remarks GENERAL: SKIN: Warm and dry. HEAD: Atraumatic. Normocephalic. EYES: Pupils equal and round. No scleral icterus. No injection or drainage. ENT: No nasal bleeding or discharge. Mucous membranes pink and moist. NECK: Trachea midline. No JVD. CARDIOVASCULAR: Regular rate and rhythm. RESPIRATORY: No accessory muscle use. Clear to auscultation. Breath sounds equal bilaterally. GASTROINTESTINAL: Abdomen soft, non-tender, nondistended. Hepatic and splenic margins not palpable. MUSCULOSKELETAL: Extremities without clubbing, cyanosis, or edema. No obvious deformities. NEUROLOGICAL: Awake and alert. No obvious cranial nerve deficits. Motor grossly within normal limits. Five out of 5 muscle strength in the arms and legs. Normal speech. PSYCHIATRIC: Appropriate mood and affect; insight and judgment normal. Assessment and Plan Assessment and Plan respiratory failure S/P ICB PLAN O2 NEEDED PULM TOILET pulm stable will sign off see -prn Katie Wilson MD Feb 18, 2017 15:03
[2017-02-19] VITALS (7 sets, daily range): BP systolic 98–127; BP diastolic 68–79; PULSE 71–80; RESP 17–20; TEMP 97.6–98.9; O2SAT 93–99
[2017-02-19] MEDS: HEPARIN SODIUM - SQ 10,000 UNITS/ML VIAL SQ SCH ×3 (06:26→22:19)
[2017-02-19] MEDS: SODIUM CHLORIDE 0.9% FLUSH 10 ML FLUSH IV FLUSH SCH ×3 (09:00→21:00)
[2017-02-19] MEDS: METOPROLOL TARTRATE 50 MG TAB DOBHOFF SCH (09:35)
[2017-02-19] MEDS: FAMOTIDINE 20 MG TAB PO SCH ×2 (09:36→22:19)
[2017-02-19] MEDS: ASPIRIN EC 81 MG TABEC PO SCH (09:36)
[2017-02-19] MEDS: LACTOBACILLUS ACIDOPHILUS TAB PO SCH ×2 (09:36→22:19)
[2017-02-19] MEDS: NYSTATIN SUSP 500,000 U/5 ML CUP SWISH-SWAL SCH ×4 (09:36→22:18)
[2017-02-19] MEDS: MUPIROCIN 2% CREAM 15 GM TOPICAL SCH ×2 (09:39→22:20)
[2017-02-19] MEDS: ACETAMINOPHEN/HYDROcodone 325 MG/5 MG TAB PO PRN ×3 (09:43→22:34)
--- NOTE | 2017-02-19 10:39 | HHI.PR ---
Subjective Remarks Follow-up Subarachnoid hemorrhage/Vertebral artery aneurysm 02/17/17-patient seen and examined, still complains of headaches and double vision. Afebrile 02/18/17-patient seen and examined; states he is very anxious and depressed. Continue to have headaches. 02/19/17-patient seen and examined, patient is stable as far as complaint of headaches and double vision is concerned. Objective Vitals Vital Signs Date Time Temp Pulse Resp B/P (MAP) Pulse Ox O2 Delivery O2 Flow Rate FiO2 02/19/17 08:00 98.7 80 17 121/75 (90) 98 02/19/17 05:00 80 02/19/17 04:00 98.9 78 20 127/78 (94) 93 02/19/17 00:00 97.8 75 20 125/79 (94) 98 02/18/17 20:00 98.5 79 20 116/76 (89) 96 02/18/17 16:00 98.7 75 18 119/68 (85) 96 02/18/17 12:00 98.8 81 16 118/78 (91) 95 I/O 02/18/17 02/18/17 02/18/17 02/19/17 02/19/17 02/19/17 07:00 15:00 23:00 07:00 15:00 23:00 Intake Total 120 ml 480 ml Balance 120 ml 480 ml Intake Oral 120 ml 480 ml # Voids 1 4 2 1 # Bowel Movements 1 Objective Remarks GENERAL: NAD SKIN: Warm and dry. HEAD: Normocephalic. EYES: No scleral icterus. No injection or drainage. NECK: Supple, trachea midline. No JVD or lymphadenopathy. CARDIOVASCULAR: Regular rate and rhythm without murmurs, gallops, or rubs. RESPIRATORY: Breath sounds equal bilaterally. No accessory muscle use. GASTROINTESTINAL: Abdomen soft, non-tender, nondistended. MUSCULOSKELETAL: No cyanosis, or edema. BACK: Nontender without obvious deformity. No CVA tenderness. Procedures He was transferred to [facility]. The patient has now been transferred back here to [facility] after being evaluated by neurosurgery there. He had multiple procedures there. 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 He was status post tracheostomy on a trache collar. 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 May need a G-tube. He has a history of hyponatremia and has been recently placed on aspirin. A/P Problem List: (1) Subarachnoid hemorrhage ICD Code: I60.9 - Nontraumatic subarachnoid hemorrhage, unspecified Status: Acute (2) Peripheral vascular disease ICD Code: I73.9 - Peripheral vascular disease, unspecified (3) Hyponatremia ICD Code: E87.1 - Hypo-osmolality and hyponatremia (4) Leukocytosis ICD Code: D72.829 - Elevated white blood cell count, unspecified (5) Anxiety ICD Code: F41.9 - Anxiety disorder, unspecified (6) Dysphagia ICD Code: R13.10 - Dysphagia, unspecified Assessment and Plan 56-year-old male with subarachnoid hemorrhage Subarachnoid hemorrhage/Vertebral artery aneurysm Headaches, double vision - Status post coiling, ventriculoperitoneal shunt at [facility]. - Continue aspirin. - Repeat CT done on 02/12. Showed trace subarachnoid hemorrhage seen within the high parietal region. No signs of infarct or mass. - Needs rehabilitation placement. [facility]. - We'll do a referral for neuro-ophthalmology when discharged. Status post tracheostomy - Decannulated - Appreciate pulmonology following. Trach removed 02/05/17. - Levsin PRN to help with secretions Nutrition Poor appetite - Speech therapy following. - On regular diet, advance to mechanical soft with thin liquids - Continue ensure with meals Hypertension - Continue amlodipine and metoprolol. - Controlled. Depression Continue Low-dose Xanax when necessary and consider Lexapro GI prophylaxis: Pepcid. Stool softener PRN constipation. DVT PPx: Heparin Julio Crouch MD Feb 19, 2017 10:39
[2017-02-19] MEDS: [UNRECOGNIZED DRUG - REMARK] DOBHOFF SCH (15:00)
[2017-02-20] VITALS (8 sets, daily range): BP systolic 111–126; BP diastolic 60–81; PULSE 72–89; RESP 16–20; TEMP 96.1–98.8; O2SAT 94–98
[2017-02-20] MEDS: HEPARIN SODIUM - SQ 10,000 UNITS/ML VIAL SQ SCH ×3 (05:26→22:30)
--- NOTE | 2017-02-20 08:58 | HHI.PR ---
Subjective Remarks Follow-up Subarachnoid hemorrhage/Vertebral artery aneurysm 02/17/17-patient seen and examined, still complains of headaches and double vision. Afebrile 02/18/17-patient seen and examined; states he is very anxious and depressed. Continue to have headaches. 02/19/17-patient seen and examined, patient is stable as far as complaint of headaches and double vision is concerned. 02/20/17-patient seen and examined, no change. Stable Objective Vitals Vital Signs Date Time Temp Pulse Resp B/P (MAP) Pulse Ox O2 Delivery O2 Flow Rate FiO2 02/20/17 08:10 96.1 89 16 113/80 (91) 97 02/20/17 04:00 97.7 81 20 125/81 (96) 94 02/20/17 00:00 98.8 78 20 118/77 (91) 96 02/19/17 23:45 14 02/19/17 20:00 98.4 78 20 113/77 (89) 98 02/19/17 16:13 97.6 75 20 118/76 (90) 99 02/19/17 12:20 97.7 71 20 98/68 (78) 96 I/O 02/19/17 02/19/17 02/19/17 02/20/17 02/20/17 02/20/17 07:00 15:00 23:00 07:00 15:00 23:00 Intake Total 480 ml Balance 480 ml Intake Oral 480 ml # Voids 1 2 3 Objective Remarks GENERAL: NAD SKIN: Warm and dry. HEAD: Normocephalic. EYES: No scleral icterus. No injection or drainage. NECK: Supple, trachea midline. No JVD or lymphadenopathy. CARDIOVASCULAR: Regular rate and rhythm without murmurs, gallops, or rubs. RESPIRATORY: Breath sounds equal bilaterally. No accessory muscle use. GASTROINTESTINAL: Abdomen soft, non-tender, nondistended. MUSCULOSKELETAL: No cyanosis, or edema. BACK: Nontender without obvious deformity. No CVA tenderness. Procedures He was transferred to [facility]. The patient has now been transferred back here to [facility] after being evaluated by neurosurgery there. He had multiple procedures there. 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 He was status post tracheostomy on a trache collar. 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 May need a G-tube. He has a history of hyponatremia and has been recently placed on aspirin. A/P Problem List: (1) Subarachnoid hemorrhage ICD Code: I60.9 - Nontraumatic subarachnoid hemorrhage, unspecified Status: Acute (2) Peripheral vascular disease ICD Code: I73.9 - Peripheral vascular disease, unspecified (3) Hyponatremia ICD Code: E87.1 - Hypo-osmolality and hyponatremia (4) Leukocytosis ICD Code: D72.829 - Elevated white blood cell count, unspecified (5) Anxiety ICD Code: F41.9 - Anxiety disorder, unspecified (6) Dysphagia ICD Code: R13.10 - Dysphagia, unspecified Assessment and Plan 56-year-old male with subarachnoid hemorrhage Subarachnoid hemorrhage/Vertebral artery aneurysm Headaches, double vision - Status post coiling, ventriculoperitoneal shunt at [facility]. - Continue aspirin. - Repeat CT done on 02/12. Showed trace subarachnoid hemorrhage seen within the high parietal region. No signs of infarct or mass. - Needs rehabilitation placement. awaiting for [facility] for approval. - We'll do a referral for neuro-ophthalmology when discharged. Status post tracheostomy - Decannulated - Appreciate pulmonology following. Trach removed 02/05/17. - Levsin PRN to help with secretions Nutrition Poor appetite - Speech therapy following. - Continue ensure with meals Hypertension - Continue amlodipine and metoprolol. - Controlled. Depression Continue Low-dose Xanax when necessary GI prophylaxis: Pepcid. Stool softener PRN constipation. DVT PPx: Heparin Julio Crouch MD Feb 20, 2017 08:58
[2017-02-20] MEDS: NYSTATIN SUSP 500,000 U/5 ML CUP SWISH-SWAL SCH ×4 (08:59→22:30)
[2017-02-20] MEDS: FAMOTIDINE 20 MG TAB PO SCH ×2 (09:00→22:31)
[2017-02-20] MEDS: ASPIRIN EC 81 MG TABEC PO SCH (09:00)
[2017-02-20] MEDS: LACTOBACILLUS ACIDOPHILUS TAB PO SCH ×2 (09:00→22:30)
[2017-02-20] MEDS: SODIUM CHLORIDE 0.9% FLUSH 10 ML FLUSH IV FLUSH SCH (09:00)
[2017-02-20] MEDS: METOPROLOL TARTRATE 50 MG TAB DOBHOFF SCH (09:00)
[2017-02-20] MEDS: ACETAMINOPHEN/HYDROcodone 325 MG/5 MG TAB PO PRN ×2 (09:09→19:32)
[2017-02-20] MEDS: MUPIROCIN 2% CREAM 15 GM TOPICAL SCH ×2 (09:13→22:33)
--- NOTE | 2017-02-20 12:21 | HHI.NSPN ---
(Korey Pascal) History Chief Complaint: Headache and double vision. (Korey Pascal) Interval History 02/11 & 02/12: Patient is status post occlusion of left vertebral artery aneurysm following subarachnoid hemorrhage. Status post ventriculoperitoneal shunt for secondary hydrocephalus. Complains primarily of persistent severe headache. 02/16: Patient asleep but awakens to verbal stimuli and is alert after that. He still complains of a headache as well as double vision with both eyes. 02/20: The patient is sitting up in a chair watching TV. He complains of a headache and double vision when looking to the right. He states that the headache is less when laying down but increases when he sits up. (Korey Pascal) System Review Comments Constitutional: Patient denies any fever or chills. HEENT: Patient complains of double vision when looking to the right. Respiratory: Patient denies any shortness of breath or productive cough. Cardiovascular: Patient denies any chest pain, palpitations or irregular heartbeat. Gastrointestinal: Patient denies any abdominal pain, nausea, vomiting or incontinence of stool. Genitourinary: Patient denies any incontinence of urine. Musculoskeletal: Patient denies any pain or weakness to the extremities. Neurologic: Patient complains of a headache which is worse when sitting up. He denies any dizziness, numbness or tingling. (Korey Pascal) Exam Results 02/18/17 02/18/17 02/19/17 02/19/17 02/20/17 02/20/17 06:00 18:00 06:00 18:00 06:00 18:00 Intake Total 600 ml 480 ml Balance 600 ml 480 ml Intake Oral 600 ml 480 ml # Voids 5 3 2 3 # Bowel Movements 1 Vital Signs Date Time Temp Pulse Resp B/P (MAP) Pulse Ox O2 Delivery O2 Flow Rate FiO2 02/20/17 11:59 96.7 72 18 126/60 (82) 96 02/20/17 08:10 96.1 89 16 113/80 (91) 97 02/20/17 04:00 97.7 81 20 125/81 (96) 94 02/20/17 00:00 98.8 78 20 118/77 (91) 96 02/19/17 23:45 14 02/19/17 20:00 98.4 78 20 113/77 (89) 98 02/19/17 16:13 97.6 75 20 118/76 (90) 99 02/19/17 12:20 97.7 71 20 98/68 (78) 96 02/19/17 08:00 98.7 80 17 121/75 (90) 98 02/19/17 08:00 74 02/19/17 05:00 80 02/19/17 04:00 98.9 78 20 127/78 (94) 93 02/19/17 00:00 97.8 75 20 125/79 (94) 98 02/18/17 20:00 98.5 79 20 116/76 (89) 96 02/18/17 16:00 98.7 75 18 119/68 (85) 96 02/18/17 12:00 98.8 81 16 118/78 (91) 95 02/18/17 08:00 97.9 80 18 126/82 (97) 97 02/18/17 05:46 80 02/18/17 04:00 98.5 79 18 119/68 (85) 97 02/18/17 00:00 98.3 79 18 128/80 (96) 99 02/17/17 20:00 98.2 85 18 136/88 (104) 98 02/17/17 16:44 97.6 80 20 124/73 (90) 96 (Korey Pascal) Physical Examination GENERAL: The patient is awake & alert watching TV and in no apparent distress. His affect is normal. SKIN: Warm, dry & intact w/a well-healed surgical incision s/p REGISTERED NURSE FETAL shunt placement. HEENT: Normocephalic, atraumatic. Patient with double vision when looking to the right. NECK: Full active ROM w/o pain, no JVD, trachea midline. MUSCULOSKELETAL: CHEW w/o difficulty, no evident deformity or clubbing. NEUROLOGICAL: AAOx3. Speech clear & appropriate. PERRLA, apparent right CN deficit. Sensation intact to light touch to all extremities. Strength normal major flexion and extension groups. (Korey Pascal) Medical Decision Making Impression and Plan Impression: Patient continues to do well and is essentially neurologically stable. Continues to have persistent headache. Right CN palsy. History of TBI w/SAH s/p REGISTERED NURSE FETAL shunt placement. Mild residual subarachnoid blood along the convexities on follow-up CT scan of . Reviewed records from [facility] which did not document the type of shunt or its setting. Plan: Discussed plan of care with patient. Primary management per Hospitalist. Continue present pain medications. No further neurosurgical intervention anticipated at this point. Will obtain single view skull x-ray to evaluate shunt valve pressure. (Korey Pascal) Attending Statement The exam, history, and the medical decision-making described in the above note were completed with the assistance of the mid-level provider. I reviewed and agree with the findings presented. I attest that I had a [id number] encounter with the patient on the same day, and personally performed and documented my assessment and findings in the medical record. Neurologic exam stable Long discussion with patient regarding findings Complains of persistent headache-symptomatic treatment Check x-ray to confirm shunt pressure Otherwise stable from neurosurgical standpoint with no further intervention planned (Tutu Cassidy MD) Korey Pascal Feb 20, 2017 12:21 Tutu Cassidy MD Mar 20, 2017 07:22
[2017-02-20] MEDS: BISACODYL EC 5 MG TABEC PO PRN (12:43)
[2017-02-20] MEDS: [UNRECOGNIZED DRUG - REMARK] DOBHOFF SCH (15:00)
--- NOTE | 2017-02-20 16:11 | RADRPT ---
EXAM DATE/TIME: 02/20/2017 15:26 [place] COMPARISON: No previous studies available for comparison. INDICATIONS : Evaluate shunt valve setting. MEDICAL HISTORY : Hypertension. Cardiovascular disease. SURGICAL HISTORY : None. ENCOUNTER: Initial ACUITY: 1 day PAIN SCORE: Non-responsive. LOCATION: Bilateral skull. FINDINGS: There is shunt tubing in place. The typical pressure reading setting is not clearly identified. The p ressure cannot be determined. There does appear to be a coil of wires presumably from prior aneurysm coiling. CONCLUSION: A valve setting to read the pressure is not clearly identified. Jamel Sky MD on February 20, 2017 at 16:03 Board Certified Radiologist. This report was verified electronically.
[2017-02-20] MEDS: GABAPENTIN 300 MG CAP PO SCH (22:30)
[2017-02-21] VITALS (8 sets, daily range): BP systolic 100–122; BP diastolic 63–85; PULSE 72–83; RESP 16–20; TEMP 97.7–98.3; O2SAT 94–99
[2017-02-21] MEDS: HEPARIN SODIUM - SQ 10,000 UNITS/ML VIAL SQ SCH ×3 (05:54→20:29)
[2017-02-21] MEDS: SODIUM CHLORIDE 0.9% FLUSH 10 ML FLUSH IV FLUSH SCH ×2 (09:00→21:00)
[2017-02-21] MEDS: ACETAMINOPHEN/HYDROcodone 325 MG/5 MG TAB PO PRN ×4 (09:07→20:28)
[2017-02-21] MEDS: FAMOTIDINE 20 MG TAB PO SCH ×2 (09:07→20:27)
[2017-02-21] MEDS: NYSTATIN SUSP 500,000 U/5 ML CUP SWISH-SWAL SCH ×4 (09:08→20:27)
[2017-02-21] MEDS: METOPROLOL TARTRATE 50 MG TAB DOBHOFF SCH (09:08)
[2017-02-21] MEDS: LACTOBACILLUS ACIDOPHILUS TAB PO SCH ×2 (09:08→20:28)
[2017-02-21] MEDS: ASPIRIN EC 81 MG TABEC PO SCH (09:08)
[2017-02-21] MEDS: MUPIROCIN 2% CREAM 15 GM TOPICAL SCH ×2 (09:09→20:28)
--- NOTE | 2017-02-21 09:09 | HHI.PR ---
Subjective Remarks Follow-up Subarachnoid hemorrhage/Vertebral artery aneurysm 02/17/17-patient seen and examined, still complains of headaches and double vision. Afebrile 02/18/17-patient seen and examined; states he is very anxious and depressed. Continue to have headaches. 02/19/17-patient seen and examined, patient is stable as far as complaint of headaches and double vision is concerned. 02/20/17-patient seen and examined, no change. Stable 02/21/17-patient seen and examined, still with headaches however stable Objective Vitals Vital Signs Date Time Temp Pulse Resp B/P (MAP) Pulse Ox O2 Delivery O2 Flow Rate FiO2 02/21/17 07:54 98.1 74 20 113/85 (94) 96 02/21/17 04:00 97.7 79 18 122/78 (93) 97 02/21/17 00:15 98.0 72 18 100/65 (77) 94 02/20/17 20:32 18 02/20/17 20:30 74 02/20/17 20:00 98.3 76 18 111/65 (80) 96 02/20/17 17:06 97.9 75 20 118/77 (91) 98 02/20/17 11:59 96.7 72 18 126/60 (82) 96 I/O 02/20/17 02/20/17 02/20/17 02/21/17 02/21/17 02/21/17 07:00 15:00 23:00 07:00 15:00 23:00 Intake Total 250 ml Balance 250 ml Intake Oral 250 ml # Voids 3 2 3 Objective Remarks GENERAL: NAD SKIN: Warm and dry. HEAD: Normocephalic. EYES: No scleral icterus. No injection or drainage. NECK: Supple, trachea midline. No JVD or lymphadenopathy. CARDIOVASCULAR: Regular rate and rhythm without murmurs, gallops, or rubs. RESPIRATORY: Breath sounds equal bilaterally. No accessory muscle use. GASTROINTESTINAL: Abdomen soft, non-tender, nondistended. MUSCULOSKELETAL: No cyanosis, or edema. BACK: Nontender without obvious deformity. No CVA tenderness. Procedures He was transferred to [facility]. The patient has now been transferred back here to [facility] after being evaluated by neurosurgery there. He had multiple procedures there. 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 He was status post tracheostomy on a trache collar. He is status post a ARMATURE AND ROTOR WINDER shunt. May need a G-tube. He has a history of hyponatremia and has been recently placed on aspirin. A/P Problem List: (1) Subarachnoid hemorrhage ICD Code: I60.9 - Nontraumatic subarachnoid hemorrhage, unspecified Status: Acute (2) Peripheral vascular disease ICD Code: I73.9 - Peripheral vascular disease, unspecified (3) Hyponatremia ICD Code: E87.1 - Hypo-osmolality and hyponatremia (4) Leukocytosis ICD Code: D72.829 - Elevated white blood cell count, unspecified (5) Anxiety ICD Code: F41.9 - Anxiety disorder, unspecified (6) Dysphagia ICD Code: R13.10 - Dysphagia, unspecified Assessment and Plan 56-year-old male with subarachnoid hemorrhage Subarachnoid hemorrhage/Vertebral artery aneurysm Headaches, double vision - Status post coiling, ventriculoperitoneal shunt at [facility]. - Continue aspirin. - Repeat CT done on 02/12. Showed trace subarachnoid hemorrhage seen within the high parietal region. No signs of infarct or mass. - [facility] -Continue with patch to the left eye - We'll do a referral for neuro-ophthalmology when discharged. Status post tracheostomy - Decannulated - Appreciate pulmonology following. Trach removed 02/05/17. - Levsin PRN to help with secretions Nutrition Poor appetite - Speech therapy following. - Continue ensure with meals Hypertension - Continue amlodipine and metoprolol. - Controlled. Depression Continue Low-dose Xanax when necessary GI prophylaxis: Pepcid. Stool softener PRN constipation. DVT PPx: Heparin Julio Crouch MD Feb 21, 2017 09:08
[2017-02-21] MEDS: BISACODYL EC 5 MG TABEC PO PRN (09:18)
[2017-02-21] MEDS: [UNRECOGNIZED DRUG - REMARK] DOBHOFF SCH (15:00)
[2017-02-21] MEDS ORDERED: ONDANSETRON ODT 4 MG TAB PO PRN (15:45)
[2017-02-21] MEDS: GABAPENTIN 300 MG CAP PO SCH (20:27)
[2017-02-22 04:37] VITALS: BP 112/71; PULSE 76; RESP 16; TEMP 98.2; O2SAT 97
[2017-02-22] MEDS: HEPARIN SODIUM - SQ 10,000 UNITS/ML VIAL SQ SCH ×3 (06:00→22:34)
[2017-02-22] MEDS: ASPIRIN EC 81 MG TABEC PO SCH (08:58)
[2017-02-22] MEDS: LACTOBACILLUS ACIDOPHILUS TAB PO SCH ×2 (08:58→22:35)
[2017-02-22] MEDS: FAMOTIDINE 20 MG TAB PO SCH ×2 (08:58→22:35)
[2017-02-22] MEDS: NYSTATIN SUSP 500,000 U/5 ML CUP SWISH-SWAL SCH ×4 (08:59→22:45)
[2017-02-22] MEDS: METOPROLOL TARTRATE 50 MG TAB DOBHOFF SCH (08:59)
[2017-02-22] MEDS: SODIUM CHLORIDE 0.9% FLUSH 10 ML FLUSH IV FLUSH SCH ×2 (08:59→21:00)
[2017-02-22] MEDS: ACETAMINOPHEN/HYDROcodone 325 MG/5 MG TAB PO PRN ×3 (09:19→22:35)
[2017-02-22] MEDS: MUPIROCIN 2% CREAM 15 GM TOPICAL SCH ×2 (09:19→22:38)
[2017-02-22 10:00] VITALS: BP 111/78; PULSE 74; RESP 18; TEMP 98.2; O2SAT 95
[2017-02-22 10:18] VITALS: PULSE 75; PULSE 91
[2017-02-22 13:08] VITALS: BP 107/70; PULSE 75; RESP 18; TEMP 98.6; O2SAT 97
[2017-02-22] MEDS: [UNRECOGNIZED DRUG - REMARK] DOBHOFF SCH (15:00)
--- NOTE | 2017-02-22 16:40 | HHI.PR ---
Subjective Remarks Patient reports persistent headache. No nausea or vomiting. Objective Vitals Vital Signs Date Time Temp Pulse Resp B/P (MAP) Pulse Ox O2 Delivery O2 Flow Rate FiO2 02/22/17 14:45 18 02/22/17 13:08 98.6 75 18 107/70 (82) 97 02/22/17 10:18 75 02/22/17 10:00 98.2 74 18 111/78 (89) 95 02/22/17 04:37 98.2 76 16 112/71 (85) 97 02/21/17 23:42 98.1 73 16 108/73 (85) 99 02/21/17 21:04 98.2 78 18 103/70 (81) 98 02/21/17 20:00 83 I/O 02/21/17 02/21/17 02/21/17 02/22/17 02/22/17 02/22/17 07:00 15:00 23:00 07:00 15:00 23:00 Intake Total 660 ml Balance 660 ml Intake Oral 660 ml # Voids 3 1 # Bowel Movements 1 0 Objective Remarks GENERAL: This is a well-nourished, well-developed patient. No acute distress.. CARDIOVASCULAR: Normal rate and regular rhythm without murmurs, gallops, or rubs. RESPIRATORY: Good respiratory efforts. Breath sounds equal and clear to auscultation bilaterally. GASTROINTESTINAL: Abdomen soft, non-tender, non-distended. Normal active bowel sounds MUSCULOSKELETAL: Extremities without cyanosis, or edema. NEURO: Alert. Moves all ext x4. PSYCH: Appropriate mood and affect. Procedures He was transferred to [facility]. The patient has now been transferred back here to [facility] after being evaluated by neurosurgery there. He had multiple procedures there. 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 He was status post tracheostomy on a trache collar. He is status post a TRANSMITTER SUPERVISOR shunt. May need a G-tube. He has a history of hyponatremia and has been recently placed on aspirin. A/P Problem List: (1) Subarachnoid hemorrhage ICD Code: I60.9 - Nontraumatic subarachnoid hemorrhage, unspecified Status: Acute (2) Peripheral vascular disease ICD Code: I73.9 - Peripheral vascular disease, unspecified (3) Hyponatremia ICD Code: E87.1 - Hypo-osmolality and hyponatremia (4) Leukocytosis ICD Code: D72.829 - Elevated white blood cell count, unspecified (5) Anxiety ICD Code: F41.9 - Anxiety disorder, unspecified (6) Dysphagia ICD Code: R13.10 - Dysphagia, unspecified Assessment and Plan 56-year-old male with subarachnoid hemorrhage Subarachnoid hemorrhage/Vertebral artery aneurysm Headaches, double vision - Status post coiling, ventriculoperitoneal shunt at [facility]. - Continue aspirin. - Repeat CT done on 02/12. Showed trace subarachnoid hemorrhage seen within the high parietal region. No signs of infarct or mass. -Patient has been improving physically and is able to ambulate -Continue with patch to the left eye -Persistent headache. Neurosurgery following. Appreciate further input. Status post tracheostomy - Decannulated - Appreciate pulmonology following. Trach removed 02/05/17. - Levsin PRN to help with secretions Nutrition Poor appetite - Speech therapy following. - Continue ensure with meals Hypertension - Continue amlodipine and metoprolol. - Controlled. Depression Continue Low-dose Xanax when necessary GI prophylaxis: Pepcid. Stool softener PRN constipation. DVT PPx: Heparin Discharge Planning Patient has been steadily improving. He is making arrangements to go live with her friend upon discharge. Tania Goel MD Feb 22, 2017 16:40
[2017-02-22 17:13] VITALS: BP 119/75; PULSE 75; RESP 18; TEMP 98.1; O2SAT 100
[2017-02-22] MEDS: ALPRAZolam 0.25 MG TAB PO PRN (19:38)
[2017-02-22 20:00] VITALS: BP 115/73; PULSE 75; RESP 19; TEMP 98.4; O2SAT 96
[2017-02-22] MEDS: GABAPENTIN 300 MG CAP PO SCH (22:34)
[2017-02-23] VITALS (7 sets, daily range): BP systolic 99–128; BP diastolic 64–85; PULSE 70–86; RESP 16–18; TEMP 97.8–98.3; O2SAT 95–100
[2017-02-23] MEDS: HEPARIN SODIUM - SQ 10,000 UNITS/ML VIAL SQ SCH ×3 (05:46→21:18)
[2017-02-23] MEDS: MUPIROCIN 2% CREAM 15 GM TOPICAL SCH ×2 (09:00→21:17)
[2017-02-23] MEDS: SODIUM CHLORIDE 0.9% FLUSH 10 ML FLUSH IV FLUSH SCH ×2 (09:00→21:00)
[2017-02-23] MEDS: NYSTATIN SUSP 500,000 U/5 ML CUP SWISH-SWAL SCH ×4 (09:08→21:16)
[2017-02-23] MEDS: LACTOBACILLUS ACIDOPHILUS TAB PO SCH ×2 (09:09→21:16)
[2017-02-23] MEDS: ASPIRIN EC 81 MG TABEC PO SCH (09:10)
[2017-02-23] MEDS: METOPROLOL TARTRATE 50 MG TAB DOBHOFF SCH (09:10)
[2017-02-23] MEDS: FAMOTIDINE 20 MG TAB PO SCH ×2 (09:11→21:16)
--- NOTE | 2017-02-23 14:54 | HHI.PR ---
Subjective Remarks Headache persisting but slightly better today compared to yesterday. No nausea or vomiting. Objective Vitals Vital Signs Date Time Temp Pulse Resp B/P (MAP) Pulse Ox O2 Delivery O2 Flow Rate FiO2 02/23/17 11:49 97.9 72 18 99/64 (76) 98 02/23/17 08:32 98.0 84 18 114/74 (87) 99 02/23/17 04:00 98.0 70 16 124/80 (95) 98 02/23/17 00:00 98.3 77 16 110/75 (87) 95 02/22/17 20:00 98.4 75 19 115/73 (87) 96 02/22/17 17:13 98.1 75 18 119/75 (90) 100 I/O 02/22/17 02/22/17 02/22/17 02/23/17 02/23/17 02/23/17 07:00 15:00 23:00 07:00 15:00 23:00 Intake Total 240 ml 600 ml Balance 240 ml 600 ml Intake Oral 240 ml 600 ml # Voids 1 3 2 2 # Bowel Movements 0 Objective Remarks GENERAL: This is a well-nourished, well-developed patient. No acute distress.. CARDIOVASCULAR: Normal rate and regular rhythm without murmurs, gallops, or rubs. RESPIRATORY: Good respiratory efforts. Breath sounds equal and clear to auscultation bilaterally. GASTROINTESTINAL: Abdomen soft, non-tender, non-distended. Normal active bowel sounds MUSCULOSKELETAL: Extremities without cyanosis, or edema. NEURO: Alert. Moves all ext x4. PSYCH: Appropriate mood and affect. Procedures He was transferred to [facility]. The patient has now been transferred back here to [facility] after being evaluated by neurosurgery there. He had multiple procedures there. 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 He was status post tracheostomy on a trache collar. He is status post a AIR VICE MARSHAL shunt. May need a G-tube. He has a history of hyponatremia and has been recently placed on aspirin. A/P Problem List: (1) Subarachnoid hemorrhage ICD Code: I60.9 - Nontraumatic subarachnoid hemorrhage, unspecified Status: Acute (2) Peripheral vascular disease ICD Code: I73.9 - Peripheral vascular disease, unspecified (3) Hyponatremia ICD Code: E87.1 - Hypo-osmolality and hyponatremia (4) Leukocytosis ICD Code: D72.829 - Elevated white blood cell count, unspecified (5) Anxiety ICD Code: F41.9 - Anxiety disorder, unspecified (6) Dysphagia ICD Code: R13.10 - Dysphagia, unspecified Assessment and Plan 56-year-old male with subarachnoid hemorrhage Subarachnoid hemorrhage/Vertebral artery aneurysm Headaches, double vision - Status post coiling, ventriculoperitoneal shunt at [facility]. - Continue aspirin. - Repeat CT done on 02/12. Showed trace subarachnoid hemorrhage seen within the high parietal region. No signs of infarct or mass. -Patient has been improving physically and is able to ambulate -Continue with patch to the left eye -Persistent headache. Neurosurgery following. Discussed with PA today. Awaiting records from [facility] regarding the type of shunt for further plans. Plan x-ray of the skull here did not reveal a valve setting to read the pressure. Status post tracheostomy - Decannulated - Appreciate pulmonology following. Trach removed 02/05/17. -Tracheostomy site healing well. Nutrition - Encourage patient to eat as tolerated. Hypertension - Continue amlodipine and metoprolol. - Controlled. Depression Continue Low-dose Xanax when necessary GI prophylaxis: Pepcid. Stool softener PRN constipation. DVT PPx: Heparin Discharge Planning Patient has been steadily improving. He is making arrangements to go live with her friend upon discharge. May potentially be discharged in the next few days. Tania Goel MD Feb 23, 2017 14:54
[2017-02-23] MEDS: [UNRECOGNIZED DRUG - REMARK] DOBHOFF SCH (15:00)
[2017-02-23] MEDS: ACETAMINOPHEN/HYDROcodone 325 MG/5 MG TAB PO PRN ×2 (15:13→21:16)
[2017-02-23] MEDS: ALPRAZolam 0.25 MG TAB PO PRN (17:04)
[2017-02-23] MEDS: GABAPENTIN 300 MG CAP PO SCH (21:16)
[2017-02-24] VITALS (7 sets, daily range): BP systolic 105–128; BP diastolic 71–88; PULSE 72–96; RESP 16–18; TEMP 97.6–98.5; O2SAT 96–98
[2017-02-24] MEDS: HEPARIN SODIUM - SQ 10,000 UNITS/ML VIAL SQ SCH ×3 (06:38→20:43)
[2017-02-24] MEDS: NYSTATIN SUSP 500,000 U/5 ML CUP SWISH-SWAL SCH ×4 (08:45→20:43)
[2017-02-24] MEDS: FAMOTIDINE 20 MG TAB PO SCH ×2 (08:45→20:43)
[2017-02-24] MEDS: SODIUM CHLORIDE 0.9% FLUSH 10 ML FLUSH IV FLUSH SCH ×2 (08:46→20:42)
[2017-02-24] MEDS: METOPROLOL TARTRATE 50 MG TAB DOBHOFF SCH (08:46)
[2017-02-24] MEDS: ASPIRIN EC 81 MG TABEC PO SCH (08:46)
[2017-02-24] MEDS: LACTOBACILLUS ACIDOPHILUS TAB PO SCH ×2 (08:47→20:42)
[2017-02-24] MEDS: MUPIROCIN 2% CREAM 15 GM TOPICAL SCH ×2 (08:47→20:44)
[2017-02-24] MEDS: BISACODYL EC 5 MG TABEC PO PRN (11:31)
[2017-02-24] MEDS: [UNRECOGNIZED DRUG - REMARK] DOBHOFF SCH (15:00)
[2017-02-24] MEDS: ACETAMINOPHEN/HYDROcodone 325 MG/5 MG TAB PO PRN (15:14)
--- NOTE | 2017-02-24 15:21 | HHI.PR ---
Subjective Remarks Patient reports is feeling better. However headache is persisting. It seems to occur at the same time every day in the afternoon. I discussed with his longtime friend at bedside. He is going to live with the patient until he gets better. Objective Vitals Vital Signs Date Time Temp Pulse Resp B/P (MAP) Pulse Ox O2 Delivery O2 Flow Rate FiO2 02/24/17 13:22 73 02/24/17 12:09 98.1 87 18 117/74 (88) 97 02/24/17 08:11 97.9 77 18 105/75 (85) 96 02/24/17 04:42 98.2 72 16 117/71 (86) 96 02/24/17 00:00 98.5 74 18 114/78 (90) 97 02/23/17 20:26 97.8 80 16 128/85 (99) 100 02/23/17 19:54 73 02/23/17 16:06 98.1 86 18 104/75 (85) 97 I/O 02/23/17 02/23/17 02/23/17 02/24/17 02/24/17 02/24/17 07:00 15:00 23:00 07:00 15:00 23:00 Intake Total 240 ml 600 ml Balance 240 ml 600 ml Intake Oral 240 ml 600 ml # Voids 2 2 2 # Bowel Movements 0 Objective Remarks GENERAL: This is a well-nourished, well-developed patient. No acute distress.. CARDIOVASCULAR: Normal rate and regular rhythm without murmurs, gallops, or rubs. RESPIRATORY: Good respiratory efforts. Breath sounds equal and clear to auscultation bilaterally. GASTROINTESTINAL: Abdomen soft, non-tender, non-distended. Normal active bowel sounds MUSCULOSKELETAL: Extremities without cyanosis, or edema. NEURO: Alert. Moves all ext x4. PSYCH: Appropriate mood and affect. Procedures He was transferred to [facility]. The patient has now been transferred back here to [facility] after being evaluated by neurosurgery there. He had multiple procedures there. 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 He was status post tracheostomy on a trache collar. He is status post a EMBOSSING TOOLSETTER shunt. May need a G-tube. He has a history of hyponatremia and has been recently placed on aspirin. A/P Problem List: (1) Subarachnoid hemorrhage ICD Code: I60.9 - Nontraumatic subarachnoid hemorrhage, unspecified Status: Acute (2) Peripheral vascular disease ICD Code: I73.9 - Peripheral vascular disease, unspecified (3) Hyponatremia ICD Code: E87.1 - Hypo-osmolality and hyponatremia (4) Leukocytosis ICD Code: D72.829 - Elevated white blood cell count, unspecified (5) Anxiety ICD Code: F41.9 - Anxiety disorder, unspecified (6) Dysphagia ICD Code: R13.10 - Dysphagia, unspecified Assessment and Plan 56-year-old male with subarachnoid hemorrhage Subarachnoid hemorrhage/Vertebral artery aneurysm Headaches, double vision - Status post coiling, ventriculoperitoneal shunt at [facility]. - Continue aspirin. - Repeat CT done on 02/12. Showed trace subarachnoid hemorrhage seen within the high parietal region. No signs of infarct or mass. -Patient has been improving physically and is able to ambulate -Continue with patch to the left eye -Persistent headache. Neurosurgery following. Discussed with PA yesterday. Will discuss with Dr. Livingston if anything else needs to be done in the hospital. Plan x-ray of the skull here did not reveal a valve setting to read the pressure. Status post tracheostomy - Decannulated - Appreciate pulmonology following. Trach removed 02/05/17. -Tracheostomy site healing well. Nutrition - Encourage patient to eat as tolerated. Hypertension - Continue amlodipine and metoprolol. - Controlled. Depression Continue Low-dose Xanax when necessary GI prophylaxis: Pepcid. Stool softener PRN constipation. DVT PPx: Heparin Discharge Planning Patient has been steadily improving. His friend is making arrangements to go live with him to help him out. Discussed with case management. Plan to discharge in the morning. He needs a walker and his medications filled. He will need mandatory referral to PCP and neurosurgery. Tania Goel MD Feb 24, 2017 15:21
[2017-02-24] MEDS ORDERED: HYDR-3516 PO (16:06)
[2017-02-24] MEDS ORDERED: NEUR300C PO (16:06)
[2017-02-24] MEDS ORDERED: ALPR.25 PO (16:06)
[2017-02-24] MEDS: ALPRAZolam 0.25 MG TAB PO PRN (18:58)
[2017-02-24] MEDS: GABAPENTIN 300 MG CAP PO SCH (20:43)
[2017-02-25] VITALS: BP 130/84; PULSE 86; RESP 18; TEMP 98.1; O2SAT 97
[2017-02-25 04:00] VITALS: BP 124/81; PULSE 76; RESP 18; TEMP 98; O2SAT 97
[2017-02-25] MEDS: HEPARIN SODIUM - SQ 10,000 UNITS/ML VIAL SQ SCH (04:52)
[2017-02-25] MEDS: ACETAMINOPHEN/HYDROcodone 325 MG/5 MG TAB PO PRN ×2 (04:52→09:15)
[2017-02-25 06:47] VITALS: PULSE 73
[2017-02-25 08:00] VITALS: BP 116/75; PULSE 76; PULSE 78; RESP 20; TEMP 97.8; O2SAT 97
[2017-02-25] MEDS: MUPIROCIN 2% CREAM 15 GM TOPICAL SCH (08:19)
[2017-02-25] MEDS: LACTOBACILLUS ACIDOPHILUS TAB PO SCH (08:19)
[2017-02-25] MEDS: FAMOTIDINE 20 MG TAB PO SCH (08:19)
[2017-02-25] MEDS: ASPIRIN EC 81 MG TABEC PO SCH (08:19)
[2017-02-25] MEDS: NYSTATIN SUSP 500,000 U/5 ML CUP SWISH-SWAL SCH (08:19)
[2017-02-25] MEDS: SODIUM CHLORIDE 0.9% FLUSH 10 ML FLUSH IV FLUSH SCH (08:23)
[2017-02-25] MEDS: BISACODYL EC 5 MG TABEC PO PRN (09:14)
[2017-02-25 12:00] VITALS: BP 147/104; PULSE 93; RESP 20; TEMP 98.5; O2SAT 97
[2017-02-25] MEDS ORDERED: CARV3.125 PO (12:14)
--- NOTE | 2017-02-25 12:15 | HHI.DCPOC ---
Discharge Care Plan Diagnosis: (1) Subarachnoid hemorrhage (2) Respiratory failure (3) Hypertension (4) Anxiety Goals to Promote Your Health * To prevent worsening of your condition and complications * To maintain your health at the optimal level Directions to Meet Your Goals Take your medications as prescribed Follow your dietary instruction Follow activity as directed Keep your appointments as scheduled Take your immunizations and boosters as scheduled If your symptoms worsen call your PCP, if no PCP go to Urgent Care Center or Emergency Room Smoking is Dangerous to Your Health. Avoid second hand smoke Call the 24-hour hour crisis hotline for domestic abuse at Tania Goel MD Feb 25, 2017 12:15
--- NOTE | 2017-02-25 12:27 | HHI.DS ---
Discharge Summary Admission Date Jan 28, 2017 at 22:42 Discharge Date: Feb 25, 2017 Admitting Diagnosis (1) Subarachnoid hemorrhage ICD Code: I60.9 - Nontraumatic subarachnoid hemorrhage, unspecified Status: Acute (2) Peripheral vascular disease ICD Code: I73.9 - Peripheral vascular disease, unspecified (3) Hyponatremia ICD Code: E87.1 - Hypo-osmolality and hyponatremia (4) Leukocytosis ICD Code: D72.829 - Elevated white blood cell count, unspecified (5) Anxiety ICD Code: F41.9 - Anxiety disorder, unspecified (6) Dysphagia ICD Code: R13.10 - Dysphagia, unspecified Procedures He was transferred to [facility]. The patient has now been transferred back here to [facility] after being evaluated by neurosurgery there. He had multiple procedures there. 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 He was status post tracheostomy on a trach collar. He is status post a COBOL DEVELOPER shunt. May need a G-tube. He has a history of hyponatremia and has been recently placed on aspirin. Brief History - From Admission Patient presented with subarachnoid hemorrhage. He was transferred to [facility]. The patient has now been transferred back here to [facility] after being evaluated by neurosurgery there. He had multiple procedures there. 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 He was status post tracheostomy on a trach collar. He is status post a COBOL DEVELOPER shunt. Imaging Last Impressions Skull X-Ray 02/20/17 0000 Signed Impressions: Service Date/Time: Monday, February 20, 2017 15:26 - CONCLUSION: A valve setting to read the pressure is not clearly identified. Jamel Sky MD Head CT 02/12/17 0800 Signed Impressions: Service Date/Time: Sunday, February 12, 2017 08:01 - CONCLUSION: Trace subarachnoid hemorrhage is seen within the high parietal region. No signs of infarct or mass. Best Cummings MD Chest X-Ray 01/30/17 0000 Signed Impressions: Service Date/Time: Monday, January 30, 2017 13:03 - CONCLUSION: 1. Minimal left basilar density slightly improved. Julio Stovall MD PE at Discharge GENERAL: This is a well-nourished, well-developed patient. No acute distress.. CARDIOVASCULAR: Normal rate and regular rhythm without murmurs, gallops, or rubs. RESPIRATORY: Good respiratory efforts. Breath sounds equal and clear to auscultation bilaterally. GASTROINTESTINAL: Abdomen soft, non-tender, non-distended. Normal active bowel sounds MUSCULOSKELETAL: Extremities without cyanosis, or edema. NEURO: Alert. Moves all ext x4. PSYCH: Appropriate mood and affect. Pt update on day of discharge Patient reports he is feeling ok. He feels comfortable going home. More then 30 minute spent discussing discharge, meds, appropriate follow up. Hospital Course 56-year-old male with subarachnoid hemorrhage. Patient returned here from [facility] after multiple procedures. Evaluation and treatment course detailed below: Subarachnoid hemorrhage/Vertebral artery aneurysm Headaches, double vision - Status post coiling, ventriculoperitoneal shunt at [facility]. - Continue aspirin. - Repeat CT done on 02/12. Showed trace subarachnoid hemorrhage seen within the high parietal region. No signs of infarct or mass. -Patient has been improving physically and is able to ambulate. He was followed by neurosurgery. Double vision is better with eye patch. -He needs to follow up outpatient with neurosurgery. A mandatory follow up order was placed. I discussed with the patient at length.. Status post tracheostomy - Decannulated. Patient was followed by pulmonology. Trach removed on . Tracheostomy site is healing well. He has been stable from a respiratory standpoint. Hypertension -Blood pressure control. He is discharged on a low dose of Coreg. He is advised to follow-up outpatient with PCP for BP monitoring and medication titration as needed. We discussed the need to keep his blood pressure controlled. Depression/anxiety Continue Low-dose Xanax when necessary Pt Condition on Discharge: Good Discharge Disposition: Discharge Home Discharge Time: > 30 minutes Discharge Instructions DIET: Follow Instructions for: As Tolerated, No Restrictions Activities you can perform: Regular-No Restrictions Follow up Referrals: Neurosurgery - 2 Weeks with Tutu Cassidy MD PCP Follow-up - 1 Week New Medications: Carvedilol (Coreg) 3.125 Mg Tab 3.125 MG PO BID, #60 TAB 0 Refills Walker Rolling/GetGo (Walker Rolling/GetGo) 1 Mis Mis EA .ROUTE DIRECTED, #1 Alprazolam (Xanax) 0.25 Mg Tab 0.25 MG PO Q12H PRN for anxiety, #20 TAB Gabapentin (Neurontin) 300 Mg Cap 300 MG PO BID, #60 CAP Hydrocodone-Acetaminophen (Hydrocodone-Acetaminophen) 5-325 mg Tab 1 TAB PO Q4H PRN for PAIN GREATER THAN 5, #20 TAB Continued Medications: Albuterol Neb (Albuterol Neb) 2.5 Mg/0.5 Ml Neb 2.5 MG NEB Q4HR NEB PRN for WHEEZING, EA Note: The Albuterol Sulfate Inhalation Solution is concentrated and must be diluted. Read complete instructions carefully before using. Aspirin DR (Aspirin EC) 81 Mg Tabdr 81 MG PO DAILY, TAB 0 Refills Discontinued Medications: Acetaminophen (Tylenol) 325 Mg Tab 650 MG PO Q4H PRN for TEMPERATURE > 100.5 F, TAB 0 Refills Acetaminophen (Tylenol) 325 Mg Tab 650 MG PO Q6H, TAB 0 Refills Amino Acids/Protein Hydrolys (Prosource No Carb Protein Liq) 887 Ml Liquid 1 PKT DOBHOFF DAILY @ 3PM Amlodipine (Amlodipine) 10 Mg Tab 10 MG PO DAILY for Blood Pressure Management, #30 TAB [address] (Bisacodyl EC) 5 Mg Tabec 5 MG PO DAILY PRN for CONSTIPATION, TAB 0 Refills Couxdazpez-Lygpnsalranzw-Ljcmkwsl (Skwqvrsjte-Lrlnjncywuyzz-Wpropcok) 50-325-40 Mg Tab 1 TAB PO Q4H PRN for HEADACHE, TAB 0 Refills Do not exceed 6 tablets/day. Heparin Sodium,Porcine (Heparin Sodium) 5,000 Unit/1 Ml Syringe 5000 UNITS SQ Q8HR Insulin Regular (Human) Concentrate Inj (Humulin R U-500 (Concentrate) Inj) 10, 000 Unit/20 Ml Vial 1 UNITS SQ for Blood Sugar Management, VIAL 0 Refills Lactobacillus Rhamnosus (GG) (Culturelle) 10 B Cell Cap 1 CAP PO BID for Nutritional Supplement, CAP 0 Refills Metoprolol Tartrate (Lopressor) 50 Mg Tab 50 MG DOBHOFF DAILY, #30 MG 0 Refills HOLD FOR SBP <100mmHg OR HR <60 BPM Mupirocin Topical (Bactroban Topical) 22 Gm Cream 1 APPLIC TOPICAL BID for Mgmt Bacterial Infection, #1 TUBE 0 Refills Nimodipine Liq (Nymalize Liq) 60 Mg/20 Ml Liq 30 MG PO Q2HR for Subarachnoid hemorrhage, #3600 ML 0 Refills Nystatin Liq (Nystatin Liq) 100,000 unit/ml Susp 5 ML SWISH-SWAL QID for Infection, ML 0 Refills Ondansetron HCl/Pf (Ondansetron HCl 4 mg/2 ml Amp) 4 Mg/2 Ml Ampul 4 MG IV PUSH PRN for NAUSEA Potassium Chloride Powder (Potassium Chloride Powder) 20 Meq Powderpack 20 MEQ PO Q6HR for Electrolyte Replacement, #30 PKT 0 Refills Quetiapine (Seroquel) 25 Mg Tab 25 MG PO HS, #30 TAB 0 Refills Sennosides (Senna) 8.8 Mg/5 Ml Syp 1 TAB PO BID Tania Goel MD Feb 25, 2017 12:27
== END 2017-02-25 14:04 | disposition home or self-care (01) | DRG 299 ==
LOC: N05A 22:42 → MERGE 22:42 → N05A 02-20 11:47
PROVIDERS: ADMIT Family Medicine; ATTEND Family Medicine
PROC: 0BP1XFZ Removal of Tracheostomy Device from Trachea, External Approach (ICD-10-PCS; principal; 2017-02-05)
DX: I77.74 Dissection of vertebral artery (principal); J96.90 Respiratory failure, unspecified, unspecified whether with hypoxia or hypercapnia; H49.21 Sixth [abducent] nerve palsy, right eye; Z93.0 Tracheostomy status; R13.10 Dysphagia, unspecified; E87.1 Hypo-osmolality and hyponatremia; R47.01 Aphasia; R56.9 Unspecified convulsions; I11.9 Hypertensive heart disease without heart failure; M10.9 Gout, unspecified; I34.0 Nonrheumatic mitral (valve) insufficiency; I73.9 Peripheral vascular disease, unspecified; D72.829 Elevated white blood cell count, unspecified; F32.9 Major depressive disorder, single episode, unspecified; F41.9 Anxiety disorder, unspecified; F17.210 Nicotine dependence, cigarettes, uncomplicated; Z82.3 Family history of stroke; Z87.820 Personal history of traumatic brain injury
CPT/HCPCS: 70250; 70450; 71010; 80048; 80053; 81001; 82948; 83036; 83735; 84100; 84439; 84443; 85025; 85027; 87040; 87086; 94640; 94664; 94762; A7520; C9113; J0696; J1644; J2270; J7613

== ENCOUNTER 2017-10-27 15:11 | Inpatient (IN) | payer MEDICAID, OTHER ==
[~2017-10-27] VITALS: Ht 167.6 cm; Wt 73.8 kg
[2017-10-27] VITALS (10 sets, daily range): BP systolic 98–144; BP diastolic 63–91; PULSE 57–85; RESP 16–20; TEMP 97.5–97.7; O2SAT 95–99
[~2017-10-27 15:11] MED LIST changes: +ALBU.5I NEB; +ALPR.25 PO; +ASPI81TA23 PO; +CARV3.125 PO; +GETGO ROLLING W1 MI1; +HYDR-3516 PO; -NAPR500T PO; +NAPR500T2 PO; +NEUR300C PO
[2017-10-27] MEDS ORDERED: METO25TA3 PO (18:39)
[2017-10-27] MEDS ORDERED: AMIT10TA6 PO (18:39)
[2017-10-27] MEDS ORDERED: SIMV10TA PO (18:39)
[2017-10-27] MEDS ORDERED: SODIUM CHLORIDE 0.9% FLUSH 10 ML FLUSH IVF PRN (18:45)
[2017-10-27] MEDS ORDERED: ASPIRIN 325 MG TAB PO ONE (19:00)
[2017-10-27] MEDS ORDERED: NITROGLYCERIN 2% OINT 1 GM PACKET TOPICAL ONE (19:00)
[2017-10-27 19:15] LABS: AUTOMATED NEUTROPHIL # 5.7 TH/MM3 (1.8-7.7); BASOPHIL # 0.1 TH/MM3 (0-0.2); BASOPHIL % 0.7 % (0.0-2.0); EOSINOPHIL # 0.1 TH/MM3 (0-0.4); EOSINOPHIL % 1.7 % (0.0-4.0); HEMOGLOBIN 14.3 GM/DL (13.0-17.0); LYMPH % 18.1 % (9.0-44.0); LYMPHOCYTE # 1.4 TH/MM3 (1.0-4.8); MEAN CORPUSCULAR HEMOGLOBIN 28.7 PG (27.0-34.0); MEAN CORPUSCULAR HGB CONC 33.3 % (32.0-36.0); MONO % 8.5 % (0.0-8.0); MONOCYTE # 0.7 TH/MM3 (0-0.9); PLATELET COUNT 248 TH/MM3 (150-450); RED CELL DISTRIBUTION WIDTH 15.6 % (11.6-17.2)
--- NOTE | 2017-10-27 19:19 | PD ---
HPI Chief Complaint: Chest Pain Time Seen by Provider: 18:46 Travel History International Travel<30 days: No Contact w/Intl Traveler<30days: No Traveled to known affect area: No History of Present Illness HPI 56-year-old male patient with history of CSF shunt, hypertension, presents to the ER today for several days history of intermittent chest pains which are waxing and waning and substernal, currently 9 out of 10, radiates up to the neck , and is reproducible on palpation of the anterior chest wall. He denies any fevers, coughing, abdominal pains, vomiting, or any other issues. He denies any previous symptoms of chest pain in the past and has not had a cardiac workup before. Other than that, he states he has headaches but he states those are chronic. Modifying Factors: None Associated Signs & Symptoms: Chest pains Risk Factors: Hypertension PFSH Past Medical History Anxiety: Yes Cardiovascular Problems: Yes (htn) Gastrointestinal Disorders: Yes (colitis) Hypertension: Yes Musculoskeletal: Yes (CHRONIC NECK/BACK PAIN) Neurologic: Yes Tetanus Vaccination: < 5 Years Past Surgical History Neurologic Surgery: Yes (brain aneurysm/ shunt) Social History Alcohol Use: No (OCCASIONAL) Tobacco Use: No Substance Use: No Allergies-Medications (Allergen,Severity, Reaction): Coded Allergies: shellfish derived (Unverified Allergy, Severe, Rash, 10/27/17) gabapentin (Verified Allergy, Intermediate, 10/27/17) rash Unable to Assess (Unverified Allergy, Unknown, 03/27/17) Reported Meds & Prescriptions Reported Meds & Active Scripts Active Xanax (Alprazolam) 0.25 Mg Tab 0.25 Mg PO Q12H PRN Walker Rolling/GetGo (Device) 1 Mis Mis Ea .ROUTE DIRECTED Reported Amitriptyline (Amitriptyline HCl) 10 Mg Tab 10 Mg PO HS Simvastatin 10 Mg Tab 10 Mg PO HS Metoprolol Tartrate 25 Mg Tab 25 Mg PO BID Review of Systems Except as stated in HPI: all other systems reviewed are Neg Physical Exam Narrative GENERAL: Well-developed middle-age male patient currently in mild distress. Awake and oriented 3. SKIN: Focused skin assessment warm/dry. HEAD: Atraumatic. Normocephalic. CSF shunt palpable on the right scalp. EYES: Pupils equal and round. No scleral icterus. No injection or drainage. ENT: No nasal bleeding or discharge. Mucous membranes pink and moist. NECK: Trachea midline. No JVD. CARDIOVASCULAR: Regular rate and rhythm. No murmur appreciated. RESPIRATORY: No accessory muscle use. Clear to auscultation. Breath sounds equal bilaterally. GASTROINTESTINAL: Abdomen soft, non-tender, nondistended. Hepatic and splenic margins not palpable. MUSCULOSKELETAL: No obvious deformities. No clubbing. No cyanosis. No edema. NEUROLOGICAL: Awake and alert. No obvious cranial nerve deficits. Motor grossly within normal limits. Normal speech. PSYCHIATRIC: Appropriate mood and affect; insight and judgment normal. Data Data Last Documented VS Vital Signs Date Time Temp Pulse Resp B/P (MAP) Pulse Ox O2 Delivery O2 Flow Rate FiO2 10/27/17 19:13 100 Room Air 10/27/17 18:44 58 144/91 (108) 10/27/17 15:40 97.5 16 Orders Orders Electrocardiogram (10/27/17 15:48) Electrocardiogram (10/27/17 18:41) Basic Metabolic Panel (Bmp) (10/27/17 18:41) Ckmb (Isoenzyme) Profile (10/27/17 18:41) Complete Blood Count With Diff (10/27/17 18:41) D-Dimer (10/27/17 18:41) Magnesium (Mg) (10/27/17 18:41) Prothrombin Time / Inr (Pt) (10/27/17 18:41) Act Partial Throm Time (Ptt) (10/27/17 18:41) Troponin I (10/27/17 18:41) Ecg Monitoring (10/27/17 18:41) Bilateral Bp Monitoring (10/27/17 18:41) Iv Access Insert/Monitor (10/27/17 18:41) Oximetry (10/27/17 18:41) Oxygen Administration (10/27/17 18:41) Sodium Chloride 0.9% Flush (Ns Flush) (10/27/17 18:45) Chest, Pa & Lat (10/27/17 18:41) Aspirin (Aspirin) (10/27/17 19:00) Nitroglycerin 2% Oint (Nitroglycerin 2% (10/27/17 19:00) Labs Laboratory Tests Test 10/27/17 18:45 MDM Medical Decision Making Medical Screen Exam Complete: Yes Emergency Medical Condition: Yes Medical Record Reviewed: Yes Interpretation(s) EKG shows normal sinus rhythm at a rate of [address] changes to the leads V2 and V3. No signs of significant ST depressions. Differential Diagnosis ACS versus unstable angina versus costochondritis versus dysrhythmias Narrative Course Patient was given aspirin and nitroglycerin in the ER, cardiac workup was initiated. Physician Communication Physician Communication Case is discussed with Dr. Meza at 7 PM pending workup. Disposition based on workup. Will need admission for further evaluation of chest pain. Diagnosis Primary Impression: Chest pain Admitting Information Admitting Physician Requests: it Ila Knight MD October 27, 2017 19:19
[2017-10-27 19:35] LABS: PROTHROMBIN TIME - PATIENT 9.9 SEC (9.8-11.6)
[2017-10-27 19:38] LABS: D-DIMER 0.24 MG/L FEU (0.00-0.50)
[2017-10-27 19:40] LABS: BICARBONATE 26.4 MEQ/L (21.0-32.0); CREATININE 0.98 MG/DL (0.60-1.30); MAGNESIUM 2.2 MG/DL (1.5-2.5)
[2017-10-27 19:43] LABS: TROPONIN I 4.39 NG/ML (0.02-0.05)
[2017-10-27] MEDS ORDERED: HEPARIN SODIUM - IV 10,000 UNITS/10 ML VIAL IV ONE (19:45)
[2017-10-27] MEDS ORDERED: HEPARIN-D5W 25,000 U/250 ML 250 ML IV PRN ×2 (19:45→21:15)
--- NOTE | 2017-10-27 20:03 | RADRPT ---
EXAM DATE/TIME: 10/27/2017 19:01 [facility] COMPARISON: No previous studies available for comparison. INDICATIONS : Chest pain x 2 days. MEDICAL HISTORY : Hypertension. Cardiovascular disease,Subarachnoid hemorrhage. 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 The cardiomediastinal contours are unremarkable. Osseous structure s are intact. POWER BARKER OPERATOR shunt tubing is seen over the right chest. CONCLUSION: No acute disease. Jamel Sky MD on October 27, 2017 at 20:01 Board Certified Radiologist. This report was verified electronically.
[2017-10-27] MEDS: MORPHINE SULFATE 4 MG/ML INJ IV PUSH ONE (20:15)
[2017-10-27] MEDS ORDERED: MAGNESIUM HYDROXIDE SUSP 30 ML CUP PO PRN (20:45)
[2017-10-27] MEDS ORDERED: BISACODYL 10 MG SUPP RECTAL PRN (20:45)
[2017-10-27] MEDS ORDERED: ALPRAZolam 0.25 MG TAB PO PRN (20:45)
[2017-10-27] MEDS ORDERED: ACETAMINOPHEN 325 MG TAB PO PRN (20:45)
[2017-10-27] MEDS ORDERED: METOCLOPRAMIDE HCL 10 MG/2 ML VIAL IV PUSH PRN (20:45)
[2017-10-27] MEDS ORDERED: SENNOSIDES 8.6 MG TAB PO PRN (20:45)
[2017-10-27] MEDS ORDERED: SODIUM CHLORIDE 0.9% FLUSH 10 ML FLUSH IV FLUSH PRN (20:45)
[2017-10-27] MEDS ORDERED: LACTULOSE SYRUP 20 GM/30 ML CUP PO PRN (20:45)
--- NOTE | 2017-10-27 20:46 | HHI.HP ---
HPI Service [facility] Primary Care Physician Unknown Admission Diagnosis nstemi Diagnoses: (1) NSTEMI (non-ST elevated myocardial infarction) Diagnosis: Principal (2) Chest pain Diagnosis: Principal Travel History International Travel<30 Days: No Contact w/Intl Traveler <30 Da: No Traveled to Known Affected Are: No History of Present Illness This is a 56-year-old male with a PMH of HTN, Anxiety, Chronic Back Pain and h/ o Cerebral Aneurysm/Shunt who presented to the ER w/ c/o chest pain x2 days. States symptoms have been intermittent, on and off for 2 days w/ no significant improvement. Today, had episode of severe chest pain 02/19, w/ radiation to neck /jaw. No h/o similar symptoms. On arrival, BP 128/66, HR 82, O2 sat 98% RA, Afebrile. CBC unremarkable. Chemistry essentially unremarkable. Troponin 4.39 , CPK 492. INR 1.0. CXR with no acute findings. Dr. Rowan consulted by ER physician, recommendation for Heparin gtt and likely cath in am. Review of Systems Except as stated in HPI: all other systems reviewed are Neg ROS: 14 point review of systems otherwise negative. Past Family Social History Past Medical History PMH: HTN, Anxiety, Chronic Back Pain and h/o Cerebral Aneurysm/Shunt Past Surgical History PAST SURGICAL HISTORY: Cerebral Aneurysm/Shunt Allergies: Coded Allergies: shellfish derived (Unverified Allergy, Severe, Rash, 10/27/17) gabapentin (Verified Allergy, Intermediate, 10/27/17) rash Family History PAST FAMILY HISTORY: Reviewed. No h/o DM or CAD Social History PAST SOCIAL HISTORY: Occasional alcohol. Negative for tobacco or drugs. Physical Exam Vital Signs Vital Signs Date Time Temp Pulse Resp B/P (MAP) Pulse Ox O2 Delivery O2 Flow Rate FiO2 10/27/17 20:00 57 20 106/66 (79) 96 Room Air 10/27/17 19:13 100 Room Air 10/27/17 19:10 60 20 107/70 (82) 97 10/27/17 18:44 58 144/91 (108) 10/27/17 18:44 99 Room Air 10/27/17 18:25 58 96 Room Air 10/27/17 15:40 97.5 82 16 128/66 (86) 98 Physical Exam PE: GENERAL: Extremely pleasant middle-age male in no acute distress. HEENT: PERRLA, EOMI. No scleral icterus or conjunctival pallor. No lid lag or facial droop. CARDIOVASCULAR: Regular rate and rhythm. No obvious murmurs to auscultation. No chest tenderness to palpation. RESPIRATORY: No obvious rhonchi or wheezing. Clear to auscultation. Breath sounds equal bilaterally. GASTROINTESTINAL: Abdomen soft, non-tender, nondistended. BS normal. MUSCULOSKELETAL: Extremities without clubbing, cyanosis, or edema. No obvious deformities. NEUROLOGICAL: Awake, alert and oriented x4. No focal neurologic deficits. Moving both upper and lower extremities spontaneously. Laboratory Laboratory Tests Test 10/27/17 18:45 White Blood Count 8.0 Red Blood Count 5.00 Hemoglobin 14.3 Hematocrit 43.0 Mean Corpuscular Volume 86.0 Mean Corpuscular Hemoglobin 28.7 Mean Corpuscular Hemoglobin Concent 33.3 Red Cell Distribution Width 15.6 Platelet Count 248 Mean Platelet Volume 7.0 Neutrophils (%) (Auto) 71.0 Lymphocytes (%) (Auto) 18.1 Monocytes (%) (Auto) 8.5 Eosinophils (%) (Auto) 1.7 Basophils (%) (Auto) 0.7 Neutrophils # (Auto) 5.7 Lymphocytes # (Auto) 1.4 Monocytes # (Auto) 0.7 Eosinophils # (Auto) 0.1 Basophils # (Auto) 0.1 CBC Comment DIFF FINAL Differential Comment Prothrombin Time 9.9 Prothromb Time International Ratio 1.0 Activated Partial Thromboplast Time 29.9 D-Dimer Quantitative (PE/DVT) 0.24 Blood Urea Nitrogen 13 Creatinine 0.98 Random Glucose 94 Calcium Level 9.0 Magnesium Level 2.2 Sodium Level 142 Potassium Level 4.6 Chloride Level 109 Carbon Dioxide Level 26.4 Anion Gap 7 Estimat Glomerular Filtration Rate 79 Total Creatine Kinase 492 Creatine Kinase MB % 3.6 Troponin I 4.39 Result Diagram: 10/27/17184410/27/171844 Caprini VTE Risk Assessment Caprini VTE Risk Assessment: Mod/High Risk (score >= 2) Caprini Risk Assessment Model Point Value = 1 Point Value = 2 Point Value = 3 Point Value = 5 Age 41-60 Minor surgery BMI > 25 kg/m2 Swollen legs Varicose veins or History of unexplained or recurrent spontaneous Oral contraceptives or hormone replacement Sepsis (< 1 month) Serious lung disease, including pneumonia (< 1 month) Abnormal pulmonary function Acute myocardial infarction Congestive heart failure (< 1 month) History of inflammatory bowel disease Medical patient at bed rest Age 61-74 Arthroscopic surgery Major open surgery (> 45 min) Laparoscopic surgery (> 45 min) Malignancy Confined to bed (> 72 hours) Immobilizing plaster cast Central venous access Age >= 75 History of VTE Family history of VTE Factor V Leiden Prothrombin [id number] Lupus anticoagulant Anticardiolipin antibodies Elevated serum homocysteine Heparin-induced thrombocytopenia Other congenital or acquired thrombophilia Stroke (< 1 month) Elective arthroplasty Hip, pelvis, or leg fracture Acute spinal cord injury (< 1 month) Prophylaxis Regimen Total Risk Factor Score Risk Level Prophylaxis Regimen 0-1 Low Early ambulation 2 Moderate Order ONE of the following: *Sequential Compression Device (SCD) *Heparin 5000 units SQ BID 3-4 Higher Order ONE of the following medications: *Heparin 5000 units SQ TID *Enoxaparin/Lovenox 40 mg SQ daily (WT < 150 kg, CrCl > 30 mL/min) *Enoxaparin/Lovenox 30 mg SQ daily (WT < 150 kg, CrCl > 10-29 mL/min) *Enoxaparin/Lovenox 30 mg SQ BID (WT < 150 kg, CrCl > 30 mL/min) AND/OR *Sequential Compression Device (SCD) 5 or more Highest Order ONE of the following medications: *Heparin 5000 units SQ TID (Preferred with Epidurals) *Enoxaparin/Lovenox 40 mg SQ daily (WT < 150 kg, CrCl > 30 mL/min) *Enoxaparin/Lovenox 30 mg SQ daily (WT < 150 kg, CrCl > 10-29 mL/min) *Enoxaparin/Lovenox 30 mg SQ BID (WT < 150 kg, CrCl > 30 mL/min) AND *Sequential Compression Device (SCD) Assessment and Plan Problem List: (1) NSTEMI (non-ST elevated myocardial infarction) ICD Code: I21.4 - Non-ST elevation (NSTEMI) myocardial infarction (2) Chest pain ICD Code: R07.9 - Chest pain, unspecified Status: Acute Assessment and Plan A/P: 1. NSTEMI: Acute onset of chest pain x2 days, Trop 4.39, admit to [facility], Dr. Rowan consulted, recommendation for Heparin gtt and likely cath in am. NPO, IVF , check lipid profile/Hgb A1c, ASA, Statin, caution w/ beta mike and borderline bradycardia. 2. Chest Pain: some improvement after Morphine, NTG/Morphine prn as needed, will monitor closely. NPO for likely cath in am if persistent chest pain. 3. DVT Prophylaxis: Heparin gtt 4. Social work for d/c planning as needed 5. Case discussed w/ ER physician at length, labs/records/imaging reviewed by [facility] Physician Certification 2 Midnight Certification Type: Admission for Inpatient Services Order for Inpatient Services The services are ordered in accordance with Medicare regulations or non- Medicare payer requirements, as applicable. In the case of services not specified as inpatient-only, they are appropriately provided as inpatient services in accordance with the 2-midnight benchmark. Estimated LOS (days): 2 days is the estimated time the patient will need to remain in the hospital, assuming treatment plan goals are met and no additional complications. Post-Hospital Plan: Not yet determined Shireen Badillo MD October 27, 2017 20:46
[2017-10-27] MEDS ORDERED: PRAVASTATIN SOD 20 MG TAB PO SCH (21:00)
[2017-10-27] MEDS: SODIUM CHLOR 0.9% 1000 ML INJ 1,000 ML IV SCH (22:18)
[2017-10-27] MEDS: SODIUM CHLORIDE 0.9% FLUSH 10 ML FLUSH IV FLUSH SCH (22:19)
[2017-10-27] MEDS ORDERED: HEPARIN 25,000 UNITS-D5W 250 ML - PREMIX IV PRN (22:30)
[2017-10-27] MEDS: DOCUSATE SODIUM 50 MG/SENNA 8.6 MG TAB PO SCH (23:04)
[2017-10-27] MEDS: MORPHINE SULFATE 2 MG/ML SYRINGE IV PUSH PRN (23:52)
[2017-10-28] VITALS (28 sets, daily range): BP systolic 81–138; BP diastolic 58–92; PULSE 56–96; RESP 16–22; TEMP 97.9–99.2; O2SAT 94–98
[2017-10-28] MEDS ORDERED: HEPARIN SODIUM - IV 10,000 UNITS/10 ML VIAL IV PRN ×2 (01:45)
[2017-10-28] MEDS: MORPHINE SULFATE 2 MG/ML SYRINGE IV PUSH PRN ×2 (04:01→07:37)
[2017-10-28] MEDS: SODIUM CHLOR 0.9% 1000 ML INJ 1,000 ML IV SCH (04:03)
[2017-10-28 05:40] LABS: AUTOMATED NEUTROPHIL # 6.3 TH/MM3 (1.8-7.7); BASOPHIL % 0.4 % (0.0-2.0); EOSINOPHIL # 0.1 TH/MM3 (0-0.4); EOSINOPHIL % 0.7 % (0.0-4.0); HEMATOCRIT 39.7 % (39.0-51.0); HEMOGLOBIN 13.2 GM/DL (13.0-17.0); LYMPH % 15.5 % (9.0-44.0); LYMPHOCYTE # 1.3 TH/MM3 (1.0-4.8); MEAN CELL VOLUME 85.6 FL (80.0-100.0); MEAN CORPUSCULAR HEMOGLOBIN 28.5 PG (27.0-34.0); MEAN CORPUSCULAR HGB CONC 33.3 % (32.0-36.0); MEAN PLATELET VOLUME 7.2 FL (7.0-11.0); MONO % 7.3 % (0.0-8.0); MONOCYTE # 0.6 TH/MM3 (0-0.9); NEUT % 76.1 % (16.0-70.0); PLATELET COUNT 227 TH/MM3 (150-450); RED BLOOD COUNT 4.64 MIL/MM3 (4.50-5.90); RED CELL DISTRIBUTION WIDTH 15.5 % (11.6-17.2); WHITE BLOOD COUNT 8.3 TH/MM3 (4.0-11.0)
[2017-10-28 05:41] LABS: ALBUMIN 2.9 GM/DL (3.4-5.0); ALKALINE PHOSPHATASE 64 U/L (45-117); ALT (GPT) 40 U/L (12-78); AST (GOT) 104 U/L (15-37); BICARBONATE 23.8 MEQ/L (21.0-32.0); BLOOD UREA NITROGEN 10 MG/DL (7-18); CHLORIDE 111 MEQ/L (98-107); CREATININE 0.91 MG/DL (0.60-1.30); GLOMERULAR FILTRATION RATE 86 ML/MIN (>89); GLUCOSE,RANDOM 143 MG/DL (74-106); SODIUM (NA) 143 MEQ/L (136-145); TOTAL BILIRUBIN ADULT 0.3 MG/DL (0.2-1.0); TOTAL PROTEIN 5.9 GM/DL (6.4-8.2)
[2017-10-28] MEDS: SODIUM CHLORIDE 0.9% FLUSH 10 ML FLUSH IV FLUSH SCH ×2 (07:36→21:44)
[2017-10-28] MEDS ORDERED: NITROGLYCERIN-D5W 50 MG/250 ML 250 ML IV PRN (08:45)
--- NOTE | 2017-10-28 08:45 | PD.CONS ---
HPI Consult Requested By Primary Care Physician Unknown History of Present Illness 56-year-old male with a past medical history of cerebral aneurysm status post repair, HTN, HLD, anxiety/depression who presented with chest pain. The patient states that he has been having intermittent episodes of chest pain since , which became constant yesterday so he came to the ED. He states the pain was relieved somewhat with medications he received in the ED, but still continued to persist. He is received multiple doses of morphine overnight for chest pain. His pain is currently 6/10 in severity. Initial EKG did show [address] elevation inferiorly and lateral T-wave changes. Initial troponin IV 0.39 which trended up to 11.6 overnight. He was started on a heparin drip and admitted with consult to cardiology. He states the chest pain radiates to his back. He denies any associated shortness of breath or nausea. He denies any prior history of heart disease. (Haile Holloway) Review of Systems Negative except as stated in the HPI (Haile Holloway) Past Family Social History Allergies: Coded Allergies: shellfish derived (Unverified Allergy, Severe, Rash, 10/27/17) gabapentin (Verified Allergy, Intermediate, 10/27/17) rash Past Medical History HTN, HLD, anxiety, Chronic Back Pain and h/o Cerebral Aneurysm/Shunt Past Surgical History Cerebral Aneurysm repair Reported Medications Reported Meds & Active Scripts Active Xanax (Alprazolam) 0.25 Mg Tab 0.25 Mg PO Q12H PRN Walker Rolling/GetGo (Device) 1 Mis Mis Ea .ROUTE DIRECTED Reported Amitriptyline (Amitriptyline HCl) 10 Mg Tab 10 Mg PO HS Simvastatin 10 Mg Tab 10 Mg PO HS Metoprolol Tartrate 25 Mg Tab 25 Mg PO BID Active Ordered Medications Current Medications Medications (Trade) Dose Ordered Sig/Alfa Route Start Time Stop Time Status Last Admin (NS Flush) 2 ml UNSCH PRN IVF 10/27/17 18:45 10/27/17 20:15 (Heparin Inj) 5,000 units UNSCH PRN IV 10/28/17 01:45 (Heparin Inj) 2,500 units UNSCH PRN IV 10/28/17 01:45 Sodium Chloride 1,000 ml @ 100 mls/hr Q10H IV 10/27/17 21:00 10/28/17 04:03 (NS Flush) 2 ml UNSCH PRN IV FLUSH 10/27/17 20:45 (NS Flush) 2 ml BID IV FLUSH 10/27/17 21:00 10/28/17 07:36 (Reglan Inj) 5 mg Q6H PRN IV PUSH 10/27/17 20:45 (Tylenol) 650 mg Q6H PRN PO 10/27/17 20:45 ([place] 5-325 Mg) 1 tab Q4H PRN PO 10/27/17 20:45 (Morphine Inj) 2 mg Q3H PRN IV PUSH 10/27/17 20:45 10/28/17 07:37 (Sia-Colace) 1 tab BID PO 10/27/17 21:00 10/27/17 23:04 (Milk Of Magnesia Liq) 30 ml Q12H PRN PO 10/27/17 20:45 (Senokot) 17.2 mg Q12H PRN PO 10/27/17 20:45 (Dulcolax Supp) 10 mg DAILY PRN RECTAL 10/27/17 20:45 (Lactulose Liq) 30 ml DAILY PRN PO 10/27/17 20:45 (Xanax) 0.25 mg Q12H PRN PO 10/27/17 20:45 (Pravachol) 20 mg HS PO 10/27/17 21:00 10/27/17 23:04 (Ecotrin Ec) 81 mg DAILY PO 10/28/17 09:00 Heparin Sodium/ Dextrose 250 ml @ 8 mls/hr TITRATE PRN IV 10/27/17 22:30 10/27/17 22:49 Family History Denies any family history of heart disease. Father had a stroke. Social History Occasional alcohol. Negative for tobacco or drugs. (Haile Holloway) Physical Exam Vital Signs Vital Signs Date Time Temp Pulse Resp B/P (MAP) Pulse Ox O2 Delivery O2 Flow Rate FiO2 10/28/17 05:41 61 10/28/17 05:00 62 10/28/17 04:06 20 10/28/17 04:00 72 10/28/17 04:00 Nasal Cannula 2.00 10/28/17 04:00 98.1 69 18 114/68 (83) 97 10/28/17 03:00 68 10/28/17 02:35 110/73 (85) 10/28/17 02:00 56 10/28/17 02:00 97.9 60 18 86/58 (67) 95 10/28/17 02:00 Room Air 10/28/17 01:00 60 10/28/17 00:00 65 10/27/17 23:35 85 10/27/17 23:00 Room Air 10/27/17 23:00 97.7 67 20 125/88 (100) 98 10/27/17 22:50 65 18 110/72 (85) 97 10/27/17 22:31 10/27/17 22:24 10/27/17 22:00 72 20 116/72 (87) 97 Room Air 10/27/17 21:00 60 20 110/68 (82) 97 Room Air 10/27/17 20:00 57 20 106/66 (79) 96 Room Air 10/27/17 19:30 62 20 98/63 (75) 96 Room Air 10/27/17 19:13 100 Room Air 10/27/17 19:10 60 20 107/70 (82) 97 Room Air 10/27/17 18:44 58 144/91 (108) 10/27/17 18:44 99 Room Air 10/27/17 18:25 58 96 Room Air 10/27/17 15:40 97.5 82 16 128/66 (86) 98 Physical Exam GENERAL: Well-developed well-nourished. In no acute distress. NECK: No carotid bruits. No JVD. CARDIOVASCULAR: Regular rate and rhythm. No murmur appreciated. RESPIRATORY: No accessory muscle use. Clear to auscultation. Breath sounds equal bilaterally. MUSCULOSKELETAL: No clubbing or cyanosis. No edema. NEUROLOGICAL: Awake and alert. Normal speech. Laboratory Laboratory Tests Test 10/27/17 18:45 10/28/17 00:42 10/28/17 04:49 White Blood Count 8.0 8.3 Red Blood Count 5.00 4.64 Hemoglobin 14.3 13.2 Hematocrit 43.0 39.7 Mean Corpuscular Volume 86.0 85.6 Mean Corpuscular Hemoglobin 28.7 28.5 Mean Corpuscular Hemoglobin Concent 33.3 33.3 Red Cell Distribution Width 15.6 15.5 Platelet Count 248 227 Mean Platelet Volume 7.0 7.2 Neutrophils (%) (Auto) 71.0 76.1 Lymphocytes (%) (Auto) 18.1 15.5 Monocytes (%) (Auto) 8.5 7.3 Eosinophils (%) (Auto) 1.7 0.7 Basophils (%) (Auto) 0.7 0.4 Neutrophils # (Auto) 5.7 6.3 Lymphocytes # (Auto) 1.4 1.3 Monocytes # (Auto) 0.7 0.6 Eosinophils # (Auto) 0.1 0.1 Basophils # (Auto) 0.1 0.0 CBC Comment DIFF FINAL DIFF FINAL Differential Comment Prothrombin Time 9.9 Prothromb Time International Ratio 1.0 Activated Partial Thromboplast Time 29.9 43.1 D-Dimer Quantitative (PE/DVT) 0.24 Blood Urea Nitrogen 13 10 Creatinine 0.98 0.91 Random Glucose 94 143 Calcium Level 9.0 8.0 Magnesium Level 2.2 Sodium Level 142 143 Potassium Level 4.6 3.6 Chloride Level 109 111 Carbon Dioxide Level 26.4 23.8 Anion Gap 7 8 Estimat Glomerular Filtration Rate 79 86 Total Creatine Kinase 492 Creatine Kinase MB 17.6 Creatine Kinase MB % 3.6 Troponin I 4.39 9.38 11.60 Total Protein 5.9 Albumin 2.9 Alkaline Phosphatase 64 Aspartate Amino Transf (AST/SGOT) 104 Alanine Aminotransferase (ALT/SGPT) 40 Total Bilirubin 0.3 (Haile Holloway) Result Diagram: 10/28/179 10/28/17 0449 Imaging Last Impressions Chest X-Ray 10/27/17 1841 Signed Impressions: Service Date/Time: Friday, October 27, 2017 19:01 - CONCLUSION: No acute disease. Jamel Sky MD (Haile Holloway) Assessment and Plan Assessment and Plan 56-year-old male with a past medical history of cerebral aneurysm status post repair, HTN, HLD, anxiety/depression who presented with chest pain NSTEMI: Continue on heparin GTT. Add nitro GTT. May need urgent cardiac catheterization today, keep n.p.o. Discussed Condition With Patient, RN, Dr. Rowan (Haile Holloway) Assessment and Plan 5/[address]-T wave abnormality. + troponin will need urgent C today cardiac catheterization lab notified. NPO (Parag Rowan MD) Haile Holloway October 28, 2017 08:45 Parag Rowan MD October 28, 2017 11:13
[2017-10-28] MEDS: ASPIRIN EC 81 MG TABEC PO SCH (09:00)
[2017-10-28] MEDS: DOCUSATE SODIUM 50 MG/SENNA 8.6 MG TAB PO SCH ×2 (09:00→21:43)
[2017-10-28] MEDS ORDERED: MIDAZOLAM HCL 2 MG/2 ML VIAL ONE ×2 (10:39→11:39)
[2017-10-28] MEDS ORDERED: HEPARIN-NS/PF INJ 1,000 ML ONE (10:39)
[2017-10-28] MEDS ORDERED: HEPARIN SODIUM - IV 10,000 UNITS/10 ML VIAL ONE (10:40)
[2017-10-28] MEDS ORDERED: HEPARIN-NS/PF INJ 500 ML ONE (11:42)
[2017-10-28] MEDS ORDERED: BIVALIRUDIN 250 MG VIAL ONE (11:45)
[2017-10-28] MEDS ORDERED: ADENOSINE IV SOLN 3 MG/ML 2 ML VIAL ONE (12:10)
[2017-10-28] MEDS ORDERED: CANGRELOR TETRASODIUM 50,000 MCG VIAL ONE (12:21)
[2017-10-28] MEDS ORDERED: NITROGLYCERIN INJ 10 ML ONE (12:26)
[2017-10-28] MEDS ORDERED: TICAGRELOR 90 MG TAB PO ONE (12:32)
[2017-10-28] MEDS ORDERED: BIVALIRUDIN INJ 250 MG in SODIUM CHLORIDE 0.9% INJ 50 ML IV SCH (12:52)
[2017-10-28] MEDS ORDERED: SODIUM CHLOR 0.9% 250 ML INJ 250 ML IV PRN (13:00)
[2017-10-28] MEDS ORDERED: MISC INFORMATION XX ONE (13:00)
[2017-10-28] MEDS ORDERED: ATROPINE SULFATE 1 MG/ML VIAL IV PUSH PRN (13:00)
[2017-10-28] MEDS ORDERED: PILL SPLITTER OTHER PRN (13:15)
--- NOTE | 2017-10-28 13:37 | CATHPROC ---
[employer] HIS Report Study Information Study Number Admission Scheduled Start Study Start [id number] Oct 27 2017 8:31PM 10/28/2017 Oct 28 2017 10:45AM [place] [facility] Cardiac Catheterization Admit Source Facility Department Emergency department [facility] - Head Strength And Conditioning Coach Physician and Clinical Staff Initial Parag Lizama Monotype Casterdanica Boggs RN, Anne Marie Leon RN Recorder Lorene Velásquez,JOEL TECH2 Scrub Teagan Cortes,RT(R) Procedures Performed Procedure Location (Site) Vessel Name AngioJet RCA Prox Right Coronary Coronary Angiograms LCA Left Coronary Coronary Angiograms RCA Right Coronary Pacemaker Temp Fem Vein (right) Femoral Vein PTCA RCA Prox Right Coronary Stent RCA Mid Right Coronary Stent RCA Prox Right Coronary Wire insertion Fem Art (right) Femoral Art Wire insertion Radial (right) Radial Art. Equipment Time Will Call Clerk Description Size Mfg Part Number Used/Scraped COPILOT VALVE, BLEEDBACK [id number] 11:46 [employer] Used CONTROL *[id number] 11:50 FALK BURNETT PACING CATHETER J CURVE FR 5 Used *[id number] TRANSDUCER, TRUWAVE [id number] 10:49 FALK BURNETT * Used W/STOCKCOCK *[id number] 12:31 [employer] MEDICAL VASCADE, FR6 CLOSURE SYSTEM FR 6\7 Used *[id number] 12:31 [employer]ICAL VASCADE, FR6 CLOSURE SYSTEM FR 6\7 Used *[id number] *[id number] *[id number] *[id number] *[id number] 12:37 [employer] [facility] ANGIOSEAL, FR6 VIP FR 6 Used *[id number] MARINE POLYMER 13:27 PATCH, SYVEK EXCEL (PACER) 400-16-05 Used TECHNOLOGIES MARINE POLYMER 13:27 PATCH, SYVEK EXCEL (PACER) 400-16-05 Used TECHNOLOGIES [id number] 10:49 [employer] PACK, CCL CUSTOM * Used *[id number] 10:49 [employer] SUPPORT, ARTERIAL ADULT 14385 *6632169 Used [id number] 10:49 Ring PACER PEN, SKIN DUAL W/ RULER * Used *[id number] 11:47 MEDTRONIC BALLOON, 2.5 X 12MM EUPHORA 12MM Used *1753487 [id number] 12:06 MEDTRONIC BALLOON, 3.0 X 20MM EUPHORA 20MM Used *2830856 [id number] 11:40 MEDTRONIC JL 4.0 DXTERITY CATHETER FR 5 Used *0531028 11:19 MEDTRONIC JR 5.0 DXTERITY CATHETER fr 5 [id number] Used [id number] 12:20 MEDTRONIC STENT, 3.0 26 INTEGRITY 3.0 26 Used *9373741 [id number] 12:26 MEDTRONIC STENT, 3.5 30 INTEGRITY 3.5 30 Used *8422413 LV7429 12:01 [facility] MEDICAL 30 KIM INDEFLATOR Used *0865885 SHEATH, FR6 RADIAL PRELUDE 10:49 [facility] MEDICAL FR 6 [id number] Used EASE 11CM [id number]-6F-11- 11:45 [facility] MEDICAL SHEATH, FR6.5 PRELUDE 11CM FR 6.5 038ACT Used *[id number] PSI-6F-- 11:56 [facility] [facility] SHEATH, FR6.5 PRELUDE 11CM FR 6.5 038ACT Used *4515115 PSI-6F-11- 11:51 [facility] MEDICAL SHEATH, FR6.5 PRELUDE 11CM FR 6.5 038ACT Used *8180054 [id number] 10:49 [facility] MEDICAL WIRE, EXCHANGE 260CM 3MMJ 260CM Used *2381170 10:49 [employer] OMNIPAQUE, 350 MG, 150ML 150ML [id number] Used CATHETER, FR4 SPIROFLEX [id number] 11:51 [employer] FR 4 Used ANGIOJET RX *5494873 [id number] 10:49 [employer] MEDICAL BLANKET,WARM AIR CCL * Used *0560783 [id number] 11:37 [facility], FR5 TERUMO (10CM) FR 5 Used *6939693 WIRE, RUNTHROUGH NS FLOPPY 25-1011 11:42 [employer] MEDICAL 180CM Used .014 180CM *[id number] Equipment Model, Serial, Lot Number and Expiration Data Description Model Number Serial Number Lot Number Expiration Date ANGIOSEAL, FR6 VIP [id number] 06-11-2018 CATHETER, FR4 SPIROFLEX [id number] 11-09-2018 ANGIOJET RX JL 4.0 DXTERITY CATHETER [id number] 03-06-2020 JR 5.0 DXTERITY CATHETER [id number] 01-13-2020 STENT, 3.0 26 INTEGRITY [id number] 10-14-2018 STENT, 3.5 30 INTEGRITY [id number] 03-03-2019 VASCADE, FR6 CLOSURE SYSTEM [id number] VASCADE, FR6 CLOSURE SYSTEM [id number] History: Current Medications Medication Dosage/Unit Route Frequency Last Date/Time Taken Xanax 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 Statins (any) History: Allergies Allergy Reaction Lobster Rash Unable to Assess shellfish derived Rash gabapentin History: Risk Factors Family History of Hypertension Dyslipidemia Previous DC Previous Heart Failure Premature CAD Yes Yes No No No Prior Valve Prior PCI Prior CABG Surgery No No No Cerebrovascular Peripheral Artery Chronic Lung On Dialysis Diabetes Disease Disease Disease No Yes No No No History: Symptoms/Diagnosis Selection Items Chest pain History: Stress Tests Stress or Imaging Studies Performed No History: Other Disease Selection Items Depression History: Other Current Smoker No Labs Hgb (g/dl) Hct (%) RBC (MIL/MM3) WBC (l/cumm) Platelets (thousands) 11.60-17.00 35.00-51.00 4.00-5.90 4.00-11.00 150.00-450.00 13.2 39.7 4.6 8.3 227 Glucose (mg/dl) BUN (mg/dl) Creatinine (mg/dl) BUN:Creatinine (1:x) 74.00-106.00 7.00-18.00 0.50-1.30 10.00-20.00 143 10 0.9 11.1 Na (meq/l) K (meq/l) Cl (meq/l) CO2 (mmol/L) Ca (mg/dl) 136.00-145.00 3.50-5.10 98.00-107.00 21.00-32.00 8.50-10.10 143 3.6 111 23.8 8 PT (sec) PTT (sec) INR (PTT:PT) 9.80-11.60 24.30-30.10 0.90-1.10 9.9 29.9 1 Troponin I (ng/ml) CPK (u/l) CPK-MB (ng/ML) 0.02-0.05 26.00-308.00 0.50-3.60 11.6 492 17.6 Medication Medication Total Dose (Bolus/Oral) Medication Total Dosage/Unit 1% XYLOCAINE 25 mL ADENOSINE 54 mcg ANGIOMAX BOLUS 10.9 mL BRILINTA 180 mg FENTANYL 125 mcg NTG (IC) 600 mcg VERSED 4 mg Medications (Bolus/Oral) Medication Time Given Dosage/Unit Administered By Reason VERSED 10/28/2017 11:24:42 AM 1 mg Anne Marie Marie 1 mg VERSED given in lab by Anne Marie Marie, INDIGO in Left Antecubital via Peripheral IV. Ordered by Parag Rowan. FENTANYL 10/28/2017 11:25:44 AM 50 mcg Anne Marie Marie 50 mcg FENTANYL given in lab by Anne Marie Marie, INDIGO in Left Antecubital via Peripheral IV. Ordered by Parag Rowan. 1% XYLOCAINE 10/28/2017 11:28:27 AM 5 mL Parag Rowan 5 mL 1% XYLOCAINE given in lab by Parag Rowan in Right Radial via Subcutaneous. 1% XYLOCAINE 10/28/2017 11:36:11 AM 20 mL Parag Rowan 20 mL 1% XYLOCAINE given in lab by Parag Rowan in Right Groin via Subcutaneous. VERSED 10/28/2017 11:37:15 AM 1 mg Anne Marie Marie 1 mg VERSED given in lab by Anne Marie Marie, INDIGO in Left Antecubital via Peripheral IV. Ordered by Parag Rowan. FENTANYL 10/28/2017 11:38:19 AM 25 mcg Anne Marie Marie 25 mcg FENTANYL given in lab by Anne Marie Marie RN in Left Antecubital via Peripheral IV. Ordered by Parag Rowan. ANGIOMAX BOLUS 10/28/2017 11:48:44 AM 10.9 mL Lam Boggs RN 10.9 mL ANGIOMAX BOLUS given in lab by Lam Boggs RN in Left Antecubital via Peripheral IV. Ordered by Parag Rowan. VERSED 10/28/2017 12:17:15 PM 1 mg Anne Marie Marie 1 mg VERSED given in lab by Anne Marie Marie RN in Left Antecubital via Peripheral IV. Ordered by Parag Rowan. FENTANYL 10/28/2017 12:17:19 PM 25 mcg Anne Marie Marie 25 mcg FENTANYL given in lab by Anne Marie Marie, INDIGO in Left Antecubital via Peripheral IV. Ordered by Parag Rowan. ADENOSINE 10/28/2017 12:18:12 PM 18 mcg Parag Rowan 18 mcg ADENOSINE given in lab by Parag Rowan via Intra-coronary. Ordered by Parag Rowan. NTG (IC) 10/28/2017 12:19:03 PM 200 mcg Parag Rowan 200 mcg NTG (IC) given in lab by Parag Rowan via Intra-coronary. Ordered by Parag Rowan. NTG (IC) 10/28/2017 12:23:42 PM 200 mcg Parag Rowan 200 mcg NTG (IC) given in lab by Parag Rowan via Intra-coronary. Ordered by Parag Rowan. ADENOSINE 10/28/2017 12:24:25 PM 18 mcg Parag Rowan 18 mcg ADENOSINE given in lab by Parag Rowan via Intra-coronary. Ordered by Parag Rowan. ADENOSINE 10/28/2017 12:27:52 PM 18 mcg Parag Rowan 18 mcg ADENOSINE given in lab by Parag Rowan via Intra-coronary. Ordered by Parag Rowan. NTG (IC) 10/28/2017 12:28:02 PM 200 mcg Parag Rowan 200 mcg NTG (IC) given in lab by Parag Rowan via Intra-coronary. Ordered by Parag Rowan. VERSED 10/28/2017 12:38:26 PM 1 mg Anne Marie Marie 1 mg VERSED given in lab by Anne Marie Marie, INDIGO in Left Antecubital via Peripheral IV. Ordered by Parag Rowan. FENTANYL 10/28/2017 12:39:37 PM 25 mcg Anne Marie Marie 25 mcg FENTANYL given in lab by Anne Marie Marie, RN in Left Antecubital via Peripheral IV. Ordered by Parag Rowan. BRILINTA 10/28/2017 12:49:18 PM 180 mg Anne Marie Marie 180 mg BRILINTA given in lab by Anne Marie Marie, RN via Oral. Ordered by Parag Rowan. Medication (Drip) Medication Time Given Dosage/Unit Concentration/Unit Diluent (ml) Solution ANGIOMAX DRIP 10/28/2017 11:49:40 AM 1.75 mg/kg/hr 250 mg 50 NaCl .9 1.75 mg/kg/hr ANGIOMAX DRIP given in lab by Anne Marie Marie RN in Left Antecubital via Peripheral IV. Pump/Drip Flow = 25.38 ml/hr using NaCl .9 with a concentration of 250 mg in 50 ml. Ordered by Parag oRwan. ANGIOMAX DRIP 10/28/2017 12:56:52 PM 1.75 mg/kg/hr 250 mg 50 NaCl .9 1.75 mg/kg/hr ANGIOMAX DRIP discontinued in lab by Lam Boggs RN in Left Antecubital via Peripheral IV. Pump/Drip Flow = 25.38 ml/hr using NaCl .9 with a concentration of 250 mg in 50 ml. Ordered by Parag Rowan. Reason: As per physicians verb al order. Drip discontinued Discontinued at 10/28/2017 12:56. IV Solutions 10/28/2017 11:14:46 AM 0 mL (IV) 1000 NaCl .9 Patient arrived on IV Solutions in Left Antecubital via Peripheral IV. Pump/Drip Flow = 20 ml/hr usin g NaCl .9. KENGREAL BOLUS 10/28/2017 12:26:09 PM 10.5 mL 10.5 mL KENGREAL BOLUS given in lab by Anne Marie Marie RN in Right Antecubital via Peripheral IV. Ordered by Parag Rowan. KENGREAL DRIP 10/28/2017 12:27:09 PM 4 mcg/kg/min 50 mg 250 NaCl .9 4 mcg/kg/min KENGREAL DRIP given in lab by Anne Marie Marie RN in Left Antecubital via Peripheral IV. Pump/Drip Flow = 87 ml/hr using NaCl .9 with a concentration of 50 mg in 250 ml. Ordered by Parag Rowan. NITROGLYCERIN DRIP 10/28/2017 11:14:50 AM 10 mcg/min 50 mg 250 D5W Patient arrived on 10 mcg/min NITROGLYCERIN DRIP in Left Forearm via Peripheral IV. Pump/Drip Flow = 3 ml/hr using D5W with a concentration of 50 mg in 250 ml. NITROGLYCERIN DRIP 10/28/2017 11:46:30 AM 10 mcg/min 50 mg 250 D5W 10 mcg/min NITROGLYCERIN DRIP discontinued in lab by Anne Marie Marie RN in Left Forearm via Perip heral IV. Pump/Drip Flow = 3 ml/hr using D5W with a concentration of 50 mg in 250 ml. Ordered by Parag Rowan. Reason: As per physicians rama bal order. drip discontinued. Discontinued at 10/28/2017 11:46. Initial Case Assessment Cardiovascular HR Rhythm NIBP Chest Pain 70 sr 121/77 4 Circulatory - Right Pulses Dorsalis Pedis Femoral Radial 2 2 2 Scale (0,1,2,3,4,d) Scale (0,1,2,3,4,d) Neurological State Oriented to time-place- Alert Moves all extremities person Respiration - General Respiration Rate SpO2 (%) (B/min) 10 95 Final Case Assessment Cardiovascular HR Rhythm NIBP Chest Pain 87 sr 130/87 0 Circulatory - Right Pulses Dorsalis Pedis Femoral Radial 2 2 2 Scale (0,1,2,3,4,d) Scale (0,1,2,3,4,d) Neurological State Oriented to time-place- Alert Moves all extremities person Respiration - General Respiration Rate SpO2 (%) (B/min) 20 96 Chronological Log Time Study Chronological Log 10:59:00 Patient arrived via Bed. 10:59:01 Patient Name, D.O.B, / Armband Verified By R.N. 10:59:02 Consent signed by the physician and the patient and verified by the Head Strength And Conditioning Coach staff. 10:59:03 Pre-op and post- op instructions given; patient acknowledges understanding of instructions. 10:59:04 Verbal Stimulation=2 Physical Stimulation=2 Airway=2 Respiration=2 TOTAL=8. (0=absent, 1=li mited, 2=present) Vitals capture started with the following parameters, Patient=Adult, Interval=5 min, Initial Pr woplim=178 mmHg, 11:12:53 Deflation Rate=5 mmHg, Cuff placed on Left Arm 11:13:31 HR=98 bpm, VBLW=439/77 mmhg, SpO2=95.0 %, Resp=15 B/min, Pain=4, [place]=10, [place]=2 11:14:15 Right groin and right radial prepped with 2% chlorhexidine, and draped after a 3 min. waiti ng time. 11:14:30 Presedation assessment performed by Head Strength And Conditioning Coach RN. 11:14:32 Patient has been NPO for More than 6Hrs. 11:14:33 Skin Breakdown-none 11:14:37 Lonnie Prominences Protected 11:14:41 A # 20 IV was noted in the Antecubital (right). Grade = 0 11:14:44 A # 20 IV was noted in the Antecubital (left). Grade = 0 11:14:46 Patient arrived on IV Solutions in Left Antecubital via Peripheral IV. Pump/Drip Flow = 20 ml/hr using NaCl .9. 11:14:47 A # 20 IV was noted in the Forearm (left). Grade = 0 Patient arrived on 10 mcg/min NITROGLYCERIN DRIP in Left Forearm via Peripheral IV. Pump/Drip F low = 3 ml/hr 11:14:50 using D5W with a concentration of 50 mg in 250 ml. 11:14:52 History and physical on the chart or being dictated. Assessment: Initial Case, HR=70 BPM, Rhythm=sr, FITM=761/77 mmhg, Chest Pain=4 Right Pulses: Ryan Ped=2, Femoral=2, Radial=2 11:14:53 Neurological: State=Alert, Ox3, CHEW Respiration: Resp=10 B/min, SpO2=95 % 11:15:21 Reference ECG taken 11:17:49 Positive Allens test performed on the right radial and ulnar artery. 11:18:24 TVXQ=613/80 mmhg, SpO2=95 % 11:21:45 Pressure channel 1 zeroed. 11:22:44 paged 11:23:25 HR=76 bpm, UPOX=294/72 mmhg, SpO2=95 %, Resp=21 B/min 11:23:48 MD arrived. 11:24:42 1 mg VERSED given in lab by Anne Marie Marie RN in Left Antecubital via Peripheral IV. O rdered by Parag Rowan. 50 mcg FENTANYL given in lab by Anne Marie Marie RN in Left Antecubital via Peripheral IV. O rdered by Harpal 11::44 Parag. Time Out. Correct patient, correct procedure, correct physician, labs, allergies, and equipment verified with lab instructor 11:27:45 team present. Fire risk assesment completed (see hard stop sheet for coding). Time Out Conc urred by MD and individual staff in procedure. 11:28:24 Case Start 11:28:26 HR=84 bpm, SWKX=157/78 mmhg, SpO2=93 %, Resp=20 B/min 11::27 5 mL 1% XYLOCAINE given in lab by Parag Rowan in Right Radial via Subcutaneous. 11:32:07 Access site was Radial Artery. Right 11:33:29 HR=84 bpm, MHDL=967/75 mmhg, SpO2=92.0 %, Resp=19 B/min 11:35:22 A wire was inserted via Radial (right). Unable to advance wire. 11:36:11 20 mL 1% XYLOCAINE given in lab by Parag Rowan in Right Groin via Subcutaneous. 11:37:15 1 mg VERSED given in lab by Anne Marie Marie, RN in Left Antecubital via Peripheral IV. O rdered by Parag Rowan. 25 mcg FENTANYL given in lab by Anne Marie Marie, INDIGO in Left Antecubital via Peripheral IV. O rdered by Harpal 11:38:19 Parag. 11:38:26 HR=79 bpm, MHZA=226/72 mmhg, Resp=24 B/min 11:38:33 Access site was Right Femoral Artery. 11:38:39 A SHEATH, FR5 TERUMO (10CM) FR 5 was advanced into the Fem Art (right) using the Percutaneo us technique. A JR 4.0 INFINITI CATHETER FR 5 was advanced over a wire. OMNIPAQUE, 350 MG, 150ML 150ML was us ed for 11:38:51 injections. Recorded Pressure: Ao, HR=90, Condition=Condition 1 11:39:53 (Aorta) Ao 120/80/101 11:40:03 The RCA was injected and visualized at various angles. OMNIPAQUE, 350 MG, 150ML 150ML used . 11:40:18 Catheter was removed A JL 4.0 DXTERITY CATHETER FR 5 was advanced over a wire. OMNIPAQUE, 350 MG, 150ML 150ML was us ed for 11:40:21 injections. 11:42:13 The LCA was injected and visualized at various angles. OMNIPAQUE, 350 MG, 150ML 150ML used . 11:43:25 HR=90 bpm, DQHV=051/77 mmhg, Resp=24 B/min 11:43:28 Catheter was removed A JR 4.0 GUIDE CATHETER 90CM FR 6 was advanced over a wire. OMNIPAQUE, 350 MG, 150ML 150ML was used for 11:43:30 injections. A SHEATH, FR6.5 PRELUDE 11CM FR 6.5 was exchanged in the Fem Art (right). This was necessary in order to 11:44:39 accomodate a larger catheter. 11:44:45 A WIRE, RUNTHROUGH NS FLOPPY .014 180CM 180CM was inserted via Fem Art (right). 11:45:06 Interventional wire has crossed the lesion 10 mcg/min NITROGLYCERIN DRIP discontinued in lab by Anne Marie Marie, INDIGO in Left Forearm via Peripheral IV. 11:46:30 Pump/Drip Flow = 3 ml/hr using D5W with a concentration of 50 mg in 250 ml. Ordered by Parag Palacios. Reason: As per physicians verbal order. drip discontinued. Discontinued at 10/28/2017 11:46. 11:48:26 HR=88 bpm, KSSY=732/80 mmhg, SpO2=92 %, Resp=21 B/min 10.9 mL ANGIOMAX BOLUS given in lab by Lam Boggs RN in Left Antecubital via Peripheral IV. O rdered by Harpal 11:48:44 Parag. 1.75 mg/kg/hr ANGIOMAX DRIP given in lab by Anne Marie Marie, INDIGO in Left Antecubital via Sia pheral IV. Pump/Drip 11:49:40 Flow = 25.38 ml/hr using NaCl .9 with a concentration of 250 mg in 50 ml. Ordered by Jasson Rowan 11:51:25 Access site was Right Femoral Artery. 11:51:36 A SHEATH, FR6.5 PRELUDE 11CM FR 6.5 was advanced into the Fem Art (right) using the Percuta neous technique. 11:52:22 CATHETER, FR4 SPIROFLEX ANGIOJET RX FR 4 opened and placed on table 11:53:29 HR=90 bpm, FZML=830/73 mmhg, SpO2=97.0 %, Resp=19 B/min 11:55:04 Access site was Right Femoral Vein. 11:55:25 A SHEATH, FR6.5 PRELUDE 11CM FR 6.5 was advanced into the Fem Vein (right) using the Percut aneous technique. 11:56:18 A PACING CATHETER J CURVE FR 5 was advanced to the right ventricle. Rate = 60, Output = 3, MA = 5. 11:57:46 A CATHETER, FR4 SPIROFLEX ANGIOJET RX FR 4 was advanced over a wire. 11:58:26 HR=86 bpm, KRKJ=802/85 mmhg, Resp=23 B/min Catheter was placed in the RCA Prox over a WIRE, RUNTHROUGH NS FLOPPY .014 180CM 180CM 11:58:36 Pass: ~PASS~, Time: ~TIME~ 11:58:42 Angio-Jet in progress. 11:59:15 Unable to cross lesion, Angio-Jet removed. A BALLOON, 2.5 X 12MM EUPHORA 12MM was inserted over WIRE, RUNTHROUGH NS FLOPPY .014 180CM 180C M via 11:59:49 the RCA Prox. A BALLOON, 2.5 X 12MM EUPHORA 12MM over a WIRE, RUNTHROUGH NS FLOPPY .014 180CM 180CM in the RC A 12:00:49 Prox was inflated using a 30 KIM INDEFLATOR at 12 kim for 10 sec. A BALLOON, 2.5 X 12MM EUPHORA 12MM over a WIRE, RUNTHROUGH NS FLOPPY .014 180CM 180CM in the RC A 12:01:07 Prox was inflated using a 30 KIM INDEFLATOR at 12 kim for 6 sec. A BALLOON, 2.5 X 12MM EUPHORA 12MM over a WIRE, RUNTHROUGH NS FLOPPY .014 180CM 180CM in the RC A 12:01:10 Prox was inflated using a 30 KIM INDEFLATOR at 12 kim for 6 sec. A BALLOON, 2.5 X 12MM EUPHORA 12MM over a WIRE, RUNTHROUGH NS FLOPPY .014 180CM 180CM in the RC A 12::24 Prox was inflated using a 30 KIM INDEFLATOR at 12 kim for 5 sec. 12::49 Dottering the Balloon down the RCA 12:03:20 Balloon Removed. 12:03:29 HR=88 bpm, AFXR=684/85 mmhg, SpO2=96.0 %, Resp=20 B/min 12::58 A CATHETER, FR4 SPIROFLEX ANGIOJET RX FR 4 was advanced over a wire. 12:05:06 Unable to cross lesion, Angio-Jet removed. A BALLOON, 3.0 X 20MM EUPHORA 20MM was inserted over WIRE, RUNTHROUGH NS FLOPPY .014 180CM 180C M via 12::51 the RCA Prox. A BALLOON, 3.0 X 20MM EUPHORA 20MM over a WIRE, RUNTHROUGH NS FLOPPY .014 180CM 180CM in the RC A 12:06:52 Prox was inflated using a 30 KIM INDEFLATOR at 12 kim for 10 sec. A BALLOON, 3.0 X 20MM EUPHORA 20MM over a WIRE, RUNTHROUGH NS FLOPPY .014 180CM 180CM in the RC A 12:07:11 Prox was inflated using a 30 KIM INDEFLATOR at 14 kim for 10 sec. A BALLOON, 3.0 X 20MM EUPHORA 20MM over a WIRE, RUNTHROUGH NS FLOPPY .014 180CM 180CM in the RC A 12:07:28 Prox was inflated using a 30 KIM INDEFLATOR at 14 kim for 6 sec. 12:07:51 Balloon Removed. 12:08:31 HR=66 bpm, LEKT=903/75 mmhg, SpO2=98.0 %, Resp=20 B/min 12:09:38 Wire removed After removing the current catheter a XBRCA .070 GUIDE CATHETER FR 6 was advanced over a WIRE, EXCHANGE 12:09:44 260CM 3MMJ 260CM. 12:11:48 A WIRE, RUNTHROUGH NS FLOPPY .014 180CM 180CM was inserted via Fem Art (right). 12:12:35 A CATHETER, FR4 SPIROFLEX ANGIOJET RX FR 4 was advanced over a wire. 12:12:52 Angio-Jet in progress. 12:13:30 HR=88 bpm, LPPC=218/76 mmhg, SpO2=92.0 %, Resp=17 B/min 12:14:39 Angio-Jet in removed 12:14:56 NIBP STAT measurement started. 12:15:28 HR=67 bpm, GXAT=481/66 mmhg, SpO2=92 %, Resp=25 B/min 12:17:15 1 mg VERSED given in lab by Anne Marie Marie, INDIGO in Left Antecubital via Peripheral IV. O rdered by Parag Rowan. 25 mcg FENTANYL given in lab by Anne Marie Marie, INDIGO in Left Antecubital via Peripheral IV. O rdered by Harpal 12:17:19 Parag. 12:18:12 18 mcg ADENOSINE given in lab by Parag Rowan via Intra-coronary. Ordered by Inga Rowan en. 12:19:03 200 mcg NTG (IC) given in lab by Parag Rowan via Intra-coronary. Ordered by Inga Rowan 12:19:05 HR=77 bpm, CIWI=685/74 mmhg, SpO2=95.0 %, Resp=26 B/min An STENT, 3.0 26 INTEGRITY 3.0 26 Bare Metal Stent was inserted through a XBRCA .070 GUIDE CATH ETER FR 6 12:21:55 over a WIRE, RUNTHROUGH NS FLOPPY .014 180CM 180CM. A STENT, 3.0 26 INTEGRITY 3.0 26 was deployed using a 30 KIM INDEFLATOR at 14 atmospheres for 1 0 seconds in 12:22:56 the RCA Mid. 12:23:30 HR=87 bpm, PONZ=960/85 mmhg, SpO2=92 %, Resp=20 B/min 12:23:30 Delivery device removed 12:23:42 200 mcg NTG (IC) given in lab by Parag Rowan via Intra-coronary. Ordered by Inga Rowan 12:24:25 18 mcg ADENOSINE given in lab by Parag Rowan via Intra-coronary. Ordered by Inga Rowan 12:25:06 An implantable Bare Metal Stent was inserted through a catheter over a wire. A STENT, 3.5 30 INTEGRITY 3.5 30 was deployed using a 30 KIM INDEFLATOR at 14 atmospheres for 1 0 seconds in 12:25:25 the RCA Prox. 12:26:07 Delivery device removed 10.5 mL KENGREAL BOLUS given in lab by Anne Marie Marie, RN in Right Antecubital via Peripher al IV. Ordered by 12:26:09 Parag Rowan. 4 mcg/kg/min KENGREAL DRIP given in lab by Anne Marie Marie, RN in Left Antecubital via Perip heral IV. Pump/Drip 12:27:09 Flow = 87 ml/hr using NaCl .9 with a concentration of 50 mg in 250 ml. Ordered by Konstantin Rowan 12:27:52 18 mcg ADENOSINE given in lab by Parag Rowan via Intra-coronary. Ordered by Inga Rowan 12:28:02 200 mcg NTG (IC) given in lab by Parag Rowan via Intra-coronary. Ordered by Inga Rowan 12:28:37 HR=94 bpm, NIBP=98/67 mmhg, SpO2=95 %, Resp=26 B/min 12:28:50 Temp pacer removed. 12:29:43 Wire removed 12:29:48 Guide Catheter was removed VASCADE, FR6 CLOSURE SYSTEM FR 6\7 placement in the Fem Vein (right) manual pressure held, hemo stasis 12:30:50 obtained VASCADE, FR6 CLOSURE SYSTEM FR 6\7 placement in the Fem Art (right) manual pressure held, hemos tasis 12:33:59 obtained. 12:34:03 HR=89 bpm, WPEQ=905/76 mmhg, SpO2=95.0 %, Resp=25 B/min 12:37:13 ANGIOSEAL, FR6 VIP FR 6 placement in the Fem Art (right) Manual pressure held, hemostasis n ot obtained. 12:38:10 Case End 12:38:26 1 mg VERSED given in lab by Anne Marie Marie RN in Left Antecubital via Peripheral IV. O rdered by Parag Rowan. 12:38:31 HR=85 bpm, DSVH=835/85 mmhg, SpO2=96.0 %, Resp=27 B/min 25 mcg FENTANYL given in lab by Anne Marie Marie RN in Left Antecubital via Peripheral IV. O rdered by Harpal 12:39:37 Parag. 12:43:34 HR=89 bpm, OYSG=507/84 mmhg, SpO2=94.0 %, Resp=22 B/min 12:48:29 HR=72 bpm, KWUH=688/92 mmhg, SpO2=95.0 %, Resp=24 B/min 12:49:18 180 mg BRILINTA given in lab by Anne Marie Marie, INDIGO via Oral. Ordered by Parag Rowan. 12:53:36 HR=84 bpm, XPKI=717/70 mmhg, SpO2=96.0 %, Resp=18 B/min 1.75 mg/kg/hr ANGIOMAX DRIP discontinued in lab by Lam Boggs RN in Left Antecubital via Sia pheral IV. Pump/Drip 12:56:52 Flow = 25.38 ml/hr using NaCl .9 with a concentration of 250 mg in 50 ml. Ordered by Parag Rowan. Reason: As per physicians verbal order. Drip discontinued Discontinued at 10/28/2017 12:56. 12:58:29 HR=79 bpm, HHFG=429/81 mmhg, SpO2=97 %, Resp=14 B/min 13:04:09 HR=58 bpm, KOOQ=446/85 mmhg, SpO2=97.0 %, Resp=31 B/min 13:08:35 HR=69 bpm, RLFU=259/79 mmhg, SpO2=96.0 %, Resp=11 B/min 13:13:34 HR=69 bpm, WBNW=117/81 mmhg, SpO2=97.0 %, Resp=24 B/min 13:18:35 HR=71 bpm, GVVO=369/80 mmhg, PoS3=508.0 %, Resp=13 B/min 13:23:27 Fem Art (right) Syvek patch applied to right groin angioseal site. 13:23:34 HR=87 bpm, GCYV=156/87 mmhg, SpO2=96.0 %, Resp=27 B/min 13:24:14 Sterile dressing applied to site 13:28:06 Cine recording checked. 13:28:08 Bedside Report will be given. Assessment: Final Case, HR=87 BPM, Rhythm=sr, RRAZ=558/87 mmhg, Chest Pain=0 Right Pulses: Ryan Ped=2, Femoral=2, Radial=2 13:28:10 Neurological: State=Alert, Ox3, CHEW Respiration: Resp=20 B/min, SpO2=96 % 13:28:42 Vitals capture stopped. 13:28:43 No case complications noted. 13:29:32 Patient moved to bed 13:30:39 Patient transported to [facility] End Study - Contrast Media Used In Study Contrast Total Opened (mL) Total Used (mL) Total Wasted (mL) Omnipaque 125 125 0 End Study - Maximum Contrast Load Max Contrast Load (mL) 402.8 End Study - Radiation Exposure Fluoro Time (minutes) 10.0 End Study - Sheaths Sheaths Pulled By Sheath Hold Time (min) Minor, Parag End Study - Patient Disposition Complications Transferred To Interventional Outcome No Telemetry Bed successful
--- NOTE | 2017-10-28 13:41 | EKG ---
Date Performed: 10/28/2017 Time Performed: 08:39:34 PTAGE: 56 years EKG: Sinus rhythm . Right bundle branch block Inferior infarct - age undetermined Lateral T wave changes may be due to myocardial ischemia Abnormal ECG PREVIOUS TRACING : 10/27/2017 19.08 Since the previous tracing, no significant change noted DOCTOR: Cuate Atwood Interpretating Date/Time 10/28/2017 13:39:41
--- NOTE | 2017-10-28 13:49 | EKG ---
Date Performed: 10/27/2017 Time Performed: 19:08:24 PTAGE: 56 years EKG: SINUS BRADYCARDIA INDETERMINATE AXIS POSSIBLE RIGHT VENTRICULAR CONDUCTION DELAY ST DEVIATI ON AND MODERATE T-WAVE ABNORMALITY, CONSIDER LATERAL ISCHEMIA ABNORMAL ECG PREVIOUS TRACING : 10/27/2017 15.48 Since the previous tracing, no significant change noted DOCTOR: Cuate Atwood Interpretating Date/Time 10/28/2017 13:46:44
--- NOTE | 2017-10-28 13:55 | EKG ---
Date Performed: 10/27/2017 Time Performed: 15:48:46 PTAGE: 56 years EKG: Sinus rhythm INTRAVENTRICULAR CONDUCTION DELAY ABNORMAL ECG PREVIOUS TRACING : 01/12/2017 20.35 Since the previous tracing, no significant change noted DOCTOR: Cuate Atwood Interpretating Date/Time 10/28/2017 13:52:27
--- NOTE | 2017-10-28 15:14 | MA ---
cc: Parag Rowan MD DATE: 10/28/2017 DATE OF PROCEDURE: 10/28/2017 INDICATION FOR PROCEDURE: Non-ST elevation myocardial infarction with ongoing chest pain. PROCEDURES PERFORMED: 1. Fluoroscopy with interpretation. 2. Coronary angiography. 3. Rheolytic thrombectomy of the right coronary artery. is percutaneous coronary intervention with bare metal stents to the proximal mid right coronary artery. 4. Intracoronary administration of adenosine and nitroglycerin. 5. Temporary transvenous pacemaker placement. METHOD: Risks, benefits and alternatives were discussed with the patient. The patient understood and consented for the procedure. The patient was brought to the catheterization lab, placed on the catheterization table. The right wrist was prepped and draped in a sterile fashion. Unable to obtain right radial access. We converted to a right common femoral artery approach. A 6-Sol[place] Islander 11 cm sheath was placed in the right femoral artery. CORONARY ANGIOGRAPHY: 1. Left main coronary artery is angiographically normal. 2. Left anterior descending coronary artery has 30% stenosis in the proximal segment and a 50% stenosis in the mid segment. There is a second diagonal branch with a 90% ostial stenosis but a smaller caliber size. 3. Left circumflex gives rise to an obtuse marginal branch with a 90% stenosis. 4. Right coronary artery is occluded proximally with heavy thrombotic burden. TEMPORARY TRANSVENOUS PACEMAKER PLACEMENT: A 6-Sol[place] Islander venous sheath was placed in the right femoral vein. A 5-[place] Islander balloon tipped temporary transvenous pacemaker was advanced through the right femoral venous sheath to the level of the right ventricle apex and pacing confirmed. PERCUTANEOUS INTERVENTION: Angiomax and cangrelor were administered throughout the entire procedure to maintain appropriate anticoagulation. Right coronary was selectively engaged, a 6-Sol[place] Islander XB RCA guide catheter 0.014 and 180 cm Terumo RunThrough wire was navigated down the distal segment. A 4-Sol[place] Islander Angio-Seal device was then prepped and a rheolytic thrombectomy performed to the right coronary artery. A 2.5 x 15 mm RX balloon was then deployed and several inflations to the proximal mid segment. Repeat angiography showed KATY 1 flow secondary to heavy thrombotic burden and residual stenosis. Adenosine and nitroglycerin were administered intracoronary. A 3.0 x 20 mm RX balloon was then advanced down to the proximal mid segment and deployed with several inflations. Repeat angiography still showed severe residual stenosis. A 3.0 x 26 mm RX bare metal Integrity stent was advanced to the mid segment and deployed. A 3.5 x 30 mm RX Integrity bare metal stent was deployed with minimal stent overlap in the proximal segment and deployed. Repeat angiography showed no residual stenosis, KTAY 3 flow. VASCADE devices were deployed in the right femoral artery and vein for hemostasis. CONCLUSIONS: 1. Severe 2-vessel coronary disease with thrombotically occluded right coronary artery (culprit). 2. Successful percutaneous intervention and thrombectomy of the right coronary artery. RECOMMENDATIONS: The patient will be initiated on a statin, beta mike, aspirin and Brilinta. We will see how he does in terms of recovery, monitor for post-procedural complications. Check a 2D echocardiogram. May consider staged intervention of the obtuse marginal branch. MD BROCK Pierce/KD , 01:02 PM , 03:13 PM [facility]ITALVamshi
--- NOTE | 2017-10-28 15:44 | HHI.PR ---
Subjective Remarks Going to heart cath Still with chest pain Objective Vitals Vital Signs Date Time Temp Pulse Resp B/P (MAP) Pulse Ox O2 Delivery O2 Flow Rate FiO2 10/28/17 14:09 98.0 85 20 130/90 (103) 97 10/28/17 14:00 98.0 86 20 130/90 (103) 96 10/28/17 14:00 98.0 86 20 136/86 (103) 97 10/28/17 13:45 98.0 86 20 128/88 (101) 96 10/28/17 10:00 67 117/68 10/28/17 09:35 98/62 (74) 10/28/17 09:30 66 98/62 10/28/17 08:45 98.0 66 20 96/62 (73) 96 10/28/17 07:00 Nasal Cannula 2.00 10/28/17 05:41 61 10/28/17 05:00 62 10/28/17 04:06 20 10/28/17 04:00 72 10/28/17 04:00 Nasal Cannula 2.00 10/28/17 04:00 98.1 69 18 114/68 (83) 97 10/28/17 03:00 68 10/28/17 02:35 110/73 (85) 10/28/17 02:00 56 10/28/17 02:00 97.9 60 18 86/58 (67) 95 10/28/17 02:00 Room Air 10/28/17 01:00 60 10/28/17 00:00 65 10/27/17 23:35 85 10/27/17 23:00 Room Air 10/27/17 23:00 97.7 67 20 125/88 (100) 98 10/27/17 22:50 65 18 110/72 (85) 97 10/27/17 22:31 10/27/17 22:24 10/27/17 22:00 72 20 116/72 (87) 97 Room Air 10/27/17 21:00 60 20 110/68 (82) 97 Room Air 10/27/17 20:00 57 20 106/66 (79) 96 Room Air 10/27/17 19:30 62 20 98/63 (75) 96 Room Air 10/27/17 19:13 100 Room Air 10/27/17 19:10 60 20 107/70 (82) 97 Room Air 10/27/17 18:44 58 144/91 (108) 10/27/17 18:44 99 Room Air 10/27/17 18:25 58 96 Room Air 10/27/17 15:40 97.5 82 16 128/66 (86) 98 I/O 10/27/17 10/27/17 10/27/17 10/28/17 10/28/17 10/28/17 07:00 15:00 23:00 07:00 15:00 23:00 Intake Total 480 ml 50 ml Output Total 550 ml Balance 480 ml -500 ml Intake Oral 480 ml 50 ml Output Urine Total 550 ml # Voids 1 Result Diagram: 10/28/17 0449 10/28/17 0449 Objective Remarks GENERAL: This is a well-nourished, well-developed patient, in no apparent distress. CARDIOVASCULAR: RRR, no gallops, or rubs. RESPIRATORY: Fair air entry bilaterally. No W, R, or R GASTROINTESTINAL: Abdomen soft, non-tender, nondistended. Positive bowel sounds MUSCULOSKELETAL: Extremities without clubbing, cyanosis, or edema. Pedal pulses appreciated NEUROLOGICAL: Awake and alert. Moves all extremity. Normal speech.no focal neurological deficit A/P Problem List: (1) NSTEMI (non-ST elevated myocardial infarction) ICD Code: I21.4 - Non-ST elevation (NSTEMI) myocardial infarction (2) Chest pain ICD Code: R07.9 - Chest pain, unspecified Status: Acute Assessment and Plan 1. NSTEMI: Acute onset of chest pain x2 days, Trop 4.39, admit to [facility], Dr. Rowan consulted, on heparin gtt going for Heart cath. NPO, IVF, check lipid profile/Hgb A1c, ASA, Statin, caution w/ beta mike and borderline bradycardia. 2. Chest Pain: some improvement after Morphine, NTG/Morphine prn as needed, will monitor closely. NPO for likely cath in am if persistent chest pain. 3. DVT Prophylaxis: Heparin gtt Shaheed Doyle MD October 28, 2017 15:44
[2017-10-28] MEDS: ACETAMINOPHEN/HYDROcodone 325 MG/5 MG TAB PO PRN (18:17)
[2017-10-28] MEDS: TICAGRELOR 90 MG TAB PO SCH (21:00)
[2017-10-28] MEDS: METOPROLOL TARTRATE 25 MG TAB PO SCH (21:43)
[2017-10-29] VITALS (16 sets, daily range): BP systolic 125–131; BP diastolic 80–87; PULSE 69–86; RESP 16; TEMP 98–99; O2SAT 95–97
[2017-10-29 08:09] LABS: AUTOMATED NEUTROPHIL # 7.1 TH/MM3 (1.8-7.7); BASOPHIL % 0.4 % (0.0-2.0); EOSINOPHIL # 0.1 TH/MM3 (0-0.4); EOSINOPHIL % 0.7 % (0.0-4.0); HEMATOCRIT 40.4 % (39.0-51.0); HEMOGLOBIN 13.3 GM/DL (13.0-17.0); LYMPH % 16.4 % (9.0-44.0); LYMPHOCYTE # 1.6 TH/MM3 (1.0-4.8); MEAN CELL VOLUME 84.9 FL (80.0-100.0); MEAN PLATELET VOLUME 7.2 FL (7.0-11.0); MONO % 10.4 % (0.0-8.0); NEUT % 72.1 % (16.0-70.0); PLATELET COUNT 246 TH/MM3 (150-450); RED BLOOD COUNT 4.76 MIL/MM3 (4.50-5.90); RED CELL DISTRIBUTION WIDTH 15.6 % (11.6-17.2); WHITE BLOOD COUNT 9.8 TH/MM3 (4.0-11.0)
--- NOTE | 2017-10-29 08:23 | PD.CARD.PN ---
Subjective Subjective Remarks The patient complains of right groin swelling and discomfort today. He denies any further chest pain or shortness of breath since stent placed. No palpitations. (Haile Holloway) Objective Medications Current Medications Medications (Trade) Dose Ordered Sig/Alfa Route Start Time Stop Time Status Last Admin (NS Flush) 2 ml UNSCH PRN IV FLUSH 10/27/17 20:45 (NS Flush) 2 ml BID IV FLUSH 10/27/17 21:00 10/28/17 21:44 (Reglan Inj) 5 mg Q6H PRN IV PUSH 10/27/17 20:45 (Tylenol) 650 mg Q6H PRN PO 10/27/17 20:45 10/29/17 03:05 (Jal 5-325 Mg) 1 tab Q4H PRN PO 10/27/17 20:45 10/28/17 18:17 (Morphine Inj) 2 mg Q3H PRN IV PUSH 10/27/17 20:45 10/28/17 07:37 (Sia-Colace) 1 tab BID PO 10/27/17 21:00 10/28/17 21:43 (Milk Of Magnesia Liq) 30 ml Q12H PRN PO 10/27/17 20:45 (Senokot) 17.2 mg Q12H PRN PO 10/27/17 20:45 (Dulcolax Supp) 10 mg DAILY PRN RECTAL 10/27/17 20:45 (Lactulose Liq) 30 ml DAILY PRN PO 10/27/17 20:45 (Xanax) 0.25 mg Q12H PRN PO 10/27/17 20:45 (Ecotrin Ec) 81 mg DAILY PO 10/28/17 09:00 10/28/17 09:00 (Brilinta) 90 mg BID PO 10/28/17 21:00 (Atropine Inj) 0.5 mg UNSCH PRN IV PUSH 10/28/17 13:00 Sodium Chloride 250 ml @ 500 mls/hr ONCE PRN IV 10/28/17 13:00 10/29/17 12:59 (Lopressor) 12.5 mg Q12HR PO 10/28/17 21:00 10/28/17 21:43 (Lipitor) 40 mg DAILY PO 10/29/17 09:00 (Pill Splitter) 1 ea UNSCH PRN OTHER 10/28/17 13:15 Vital Signs / I&O Vital Signs Date Time Temp Pulse Resp B/P (MAP) Pulse Ox O2 Delivery O2 Flow Rate FiO2 10/29/17 06:00 76 10/29/17 05:00 72 10/29/17 04:00 76 10/29/17 03:45 85 16 125/82 (96) 95 10/29/17 03:00 77 10/29/17 02:00 80 10/29/17 01:00 80 10/29/17 00:00 86 10/28/17 23:24 83 16 105/74 (84) 98 10/28/17 23:00 83 10/28/17 22:08 96 Nasal Cannula 2.00 10/28/17 22:00 80 10/28/17 21:00 86 10/28/17 20:00 90 10/28/17 19:00 99.2 92 16 118/69 (85) 94 10/28/17 19:00 95 10/28/17 18:39 91 20 118/76 (90) 97 10/28/17 18:00 98.1 94 18 116/76 (89) 97 10/28/17 18:00 96 20 116/67 (83) 97 10/28/17 17:00 95 18 131/86 (101) 97 10/28/17 16:49 90 18 131/85 (100) 96 10/28/17 16:00 92 18 130/92 (105) 97 10/28/17 15:39 92 18 128/86 (100) 97 10/28/17 15:09 90 20 130/88 (102) 96 10/28/17 15:00 88 18 138/90 (106) 97 10/28/17 14:39 89 22 132/88 (103) 96 10/28/17 14:09 98.0 85 20 130/90 (103) 97 10/28/17 14:00 98.0 86 20 130/90 (103) 96 10/28/17 14:00 98.0 86 20 136/86 (103) 97 10/28/17 13:45 98.0 86 20 128/88 (101) 96 10/28/17 10:00 67 117/68 10/28/17 09:35 98/62 (74) 10/28/17 09:30 66 98/62 10/28/17 08:45 98.0 66 20 96/62 (73) 96 I/O 10/28/17 10/28/17 10/28/17 10/29/17 10/29/17 10/29/17 07:00 15:00 23:00 07:00 15:00 23:00 Intake Total 480 ml 50 ml 1320 ml 480 ml Output Total 550 ml 2700 ml 1100 ml Balance 480 ml -500 ml -1380 ml -620 ml Intake Oral 480 ml 50 ml 600 ml 480 ml IV Total 720 ml Output Urine Total 550 ml 2700 ml 1100 ml Stool Total 0 ml # Voids 1 6 # Bowel Movements 0 Physical Exam GENERAL: Well-developed well-nourished. In no acute distress. NECK: No carotid bruits. No JVD. CARDIOVASCULAR: Regular rate and rhythm. No murmur appreciated. RESPIRATORY: No accessory muscle use. Clear to auscultation. Breath sounds equal bilaterally. MUSCULOSKELETAL: Right groin access site with mild swelling and ecchymosis. No edema. Bilateral pedal pulses intact. NEUROLOGICAL: Awake and alert. Normal speech. Laboratory Laboratory Tests Test 10/29/17 05:58 White Blood Count 9.8 TH/MM3 Red Blood Count 4.76 MIL/MM3 Hemoglobin 13.3 GM/DL Hematocrit 40.4 % Mean Corpuscular Volume 84.9 FL Mean Corpuscular Hemoglobin 28.0 PG Mean Corpuscular Hemoglobin Concent 33.0 % Red Cell Distribution Width 15.6 % Platelet Count 246 TH/MM3 Mean Platelet Volume 7.2 FL Neutrophils (%) (Auto) 72.1 % Lymphocytes (%) (Auto) 16.4 % Monocytes (%) (Auto) 10.4 % Eosinophils (%) (Auto) 0.7 % Basophils (%) (Auto) 0.4 % Neutrophils # (Auto) 7.1 TH/MM3 Lymphocytes # (Auto) 1.6 TH/MM3 Monocytes # (Auto) 1.0 TH/MM3 Eosinophils # (Auto) 0.1 TH/MM3 Basophils # (Auto) 0.0 TH/MM3 CBC Comment DIFF FINAL Differential Comment Imaging Last Impressions Chest X-Ray 10/27/17 0051 Signed Impressions: Service Date/Time: Friday, October 27, 2017 19:01 - CONCLUSION: No acute disease. Jamel Sky MD (Haile Holloway) Assessment and Plan Assessment and Plan 56-year-old male with a past medical history of cerebral aneurysm status post repair, HTN, HLD, anxiety/depression who presented with chest pain NSTEMI/in stable and: Cardiac catheterization 10/28 showed thrombotically occluded right coronary artery with successful PCI; also showed 90% lesions in the obtuse marginal branch and second diagonal branch from LAD. Patient symptomatically improved. Could consider staged intervention of the OM branch. Check echocardiogram. Continue on aspirin, Brilinta, atorvastatin, metoprolol. Ambulate. Follow-up echo. Discharge planning from cardiology perspective for today with plan for follow-up for staged PCI to LCx/OM. Discussed Condition With Patient, Dr. Rowan. (Haile Holloway) Assessment and Plan doing well groin soft. no CP allow recovery prior to staged procedure. DC today. asa brillinta BB statin FU OPD will schedule for staged PCI LCx/OM (Parag Rowan MD) Haile Holloway October 29, 2017 08:23 Parag Rowan MD October 29, 2017 12:22
[2017-10-29 08:32] LABS: BICARBONATE 22.6 MEQ/L (21.0-32.0); CALCIUM 8.3 MG/DL (8.5-10.1); CREATININE 0.76 MG/DL (0.60-1.30)
[2017-10-29 08:47] LABS: CHOLESTEROL/ HDL RATIO 4.05 RATIO; HDL CHOLESTEROL 35.8 MG/DL (40.0-60.0)
[2017-10-29] MEDS ORDERED: ATORVASTATIN 40 MG TAB PO SCH (09:00)
[2017-10-29] MEDS: ASPIRIN EC 81 MG TABEC PO SCH (09:33)
[2017-10-29] MEDS: DOCUSATE SODIUM 50 MG/SENNA 8.6 MG TAB PO SCH (09:34)
[2017-10-29] MEDS: ACETAMINOPHEN/HYDROcodone 325 MG/5 MG TAB PO PRN (09:34)
[2017-10-29] MEDS: METOPROLOL TARTRATE 25 MG TAB PO SCH (09:34)
[2017-10-29] MEDS: TICAGRELOR 90 MG TAB PO SCH (09:35)
[2017-10-29] MEDS: SODIUM CHLORIDE 0.9% FLUSH 10 ML FLUSH IV FLUSH SCH (09:36)
[2017-10-29] MEDS ORDERED: SODIUM CHLOR 0.9% 1000 ML INJ 1,000 ML IV SCH (11:11)
[2017-10-29] MEDS ORDERED: BRIL90TA PO (11:11)
[2017-10-29] MEDS ORDERED: ECASA81 PO (11:11)
[2017-10-29] MEDS ORDERED: METO25TA3 PO (11:11)
[2017-10-29] MEDS ORDERED: ATOR40TA16 PO (11:11)
[2017-10-29] MEDS ORDERED: POTASSIUM CHLORIDE 20 MEQ CONTROLLED RELEASE TAB PO ONE (11:15)
[2017-10-29] MEDS ORDERED: RESP: ALBUTEROL 2.5 MG/IPRATROPIUM 0.5 MG NEB (SCH) NEB (12:15)
[2017-10-29] MEDS ORDERED: RESP: ALBUTEROL 2.5 MG/IPRATROPIUM 0.5 MG NEB (PRN) NEB (12:15)
[2017-10-29] MEDS ORDERED: IOHEXOL 350 MG/ML 100 ML BTL (for Cath Lab) OTHER ONE (15:10)
[2017-10-29] MEDS ORDERED: IOHEXOL 350 MG/ML 50 ML BTL (for Cath Lab) OTHER ONE (15:10)
--- NOTE | 2017-10-29 15:16 | ECHRPT ---
Indication: Chest Pain CONCLUSIONS Normal left ventricular size. Mild concentric left ventricular hypertrophy. The left ventricular systolic function is normal with an estimated ejection fraction in the range of 55-60%. Mitral annular calcification is present. Mild mitral valve regurgitation. There is trace tricuspid valve regurgitation. BP: / HR: Rhythm: Atrial fibrillation MEASUREMENTS (Male / Female) Normal Values Technical Quality:Technically difficult study 2D ECHO LV Diastolic Diameter PLAX 5.2 cm 4.2 - 5.9 / 3.9 - 5.3 cm LV Systolic Diameter PLAX 4.1 cm IVS Diastolic Thickness 1.4 cm 0.6 - 1.0 / 0.6 - 0.9 cm LVPW Diastolic Thickness 1.0 cm 0.6 - 1.0 / 0.6 - 0.9 cm LV Relative Wall Thickness 0.5 RV Internal Dim ED PLAX 2.9 cm LVOT Diameter 2.0 cm LA Systolic Diameter LX 3.3 cm 3.0 - 4.0 / 2.7 - 3.8 cm M-MODE Aortic Root Diameter MM 3.0 cm LA Systolic Diameter MM 3.1 cm LA Ao Ratio MM 1.0 AV Cusp Separation MM 1.9 cm DOPPLER AV Peak Velocity 95.0 cm/s AV Peak Gradient 3.6 mmHg LVOT Peak Velocity 88.4 cm/s LVOT Peak Gradient 3.1 mmHg AV Area Cont Eq pk 2.9 cm MV Area PHT 2.4 cm Mitral E Point Velocity 50.3 cm/s Mitral A Point Velocity 67.6 cm/s Mitral E to A Ratio 0.7 LV E' Lateral Velocity 6.5 cm/s Mitral E to LV E' Lateral Ratio 7.7 LV E' Septal Velocity 6.4 cm/s Mitral E to LV E' Septal Ratio 7.8 TR Peak Velocity 226.0 cm/s TR Peak Gradient 20.4 mmHg FINDINGS LEFT VENTRICLE Normal left ventricular size. Mild concentric left ventricular hypertrophy. The left ventricular systolic function is normal with an estimated ejection fraction in the range of 55-60%. RIGHT VENTRICLE Normal right ventricular size and systolic function. LEFT ATRIUM The left atrial size is normal. RIGHT ATRIUM The right atrial size is normal. ATRIAL SEPTUM Normal atrial septal thickness without atrial level shunting by limited color doppler interrogation. AORTA The aortic root and proximal ascending aorta are normal in size on limited imaging. MITRAL VALVE Mitral annular calcification is present. Mild mitral valve regurgitation. AORTIC VALVE Trileaflet aortic valve. No aortic valve stenosis or regurgitation. TRICUSPID VALVE Structurally normal tricuspid valve. There is trace tricuspid valve regurgitation. PULMONARY VALVE No pulmonary valve regurgitation or stenosis. VESSELS The inferior vena cava is normal in size. PERICARDIUM No pericardial effusion. Parag Rowan MD, FACC (Electronically Signed) Final Date:29 Oct 2017 15:15
--- NOTE | 2017-10-29 18:02 | HHI.PR ---
Subjective Remarks Reported no chest pain Feeling slightly heavy breath we added DuoNeb Cleared by cardiology Objective Vitals Vital Signs Date Time Temp Pulse Resp B/P (MAP) Pulse Ox O2 Delivery O2 Flow Rate FiO2 10/29/17 14:00 78 10/29/17 13:00 69 10/29/17 12:00 73 10/29/17 11:00 98.0 75 16 130/80 (97) 97 10/29/17 11:00 72 10/29/17 10:00 80 10/29/17 09:00 78 10/29/17 08:00 78 10/29/17 08:00 99.0 77 16 131/87 (102) 97 10/29/17 08:00 97 Room Air 10/29/17 07:00 79 10/29/17 06:00 76 10/29/17 05:00 72 10/29/17 04:00 76 10/29/17 03:45 85 16 125/82 (96) 95 10/29/17 03:00 77 10/29/17 02:00 80 10/29/17 01:00 80 10/29/17 00:00 86 10/28/17 23:24 83 16 105/74 (84) 98 10/28/17 23:00 83 10/28/17 22:08 96 Nasal Cannula 2.00 10/28/17 22:00 80 10/28/17 21:00 86 10/28/17 20:00 90 10/28/17 19:00 99.2 92 16 118/69 (85) 94 10/28/17 19:00 95 10/28/17 18:39 91 20 118/76 (90) 97 I/O 10/28/17 10/28/17 10/28/17 10/29/17 10/29/17 10/29/17 07:00 15:00 23:00 07:00 15:00 23:00 Intake Total 480 ml 50 ml 1320 ml 480 ml Output Total 550 ml 2700 ml 1100 ml Balance 480 ml -500 ml -1380 ml -620 ml Intake Oral 480 ml 50 ml 600 ml 480 ml IV Total 720 ml Output Urine Total 550 ml 2700 ml 1100 ml Stool Total 0 ml # Voids 1 6 # Bowel Movements 0 Result Diagram: 10/29/17 0558 10/29/17 0558 Objective Remarks GENERAL: This is a well-nourished, well-developed patient, in no apparent distress. CARDIOVASCULAR: RRR, no gallops, or rubs. RESPIRATORY: Fair air entry bilaterally. No W, R, or R GASTROINTESTINAL: Abdomen soft, non-tender, nondistended. Positive bowel sounds MUSCULOSKELETAL: Extremities without clubbing, cyanosis, or edema. Pedal pulses appreciated NEUROLOGICAL: Awake and alert. Moves all extremity. Normal speech.no focal neurological deficit A/P Problem List: (1) NSTEMI (non-ST elevated myocardial infarction) ICD Code: I21.4 - Non-ST elevation (NSTEMI) myocardial infarction (2) Chest pain ICD Code: R07.9 - Chest pain, unspecified Status: Acute Assessment and Plan 1. NSTEMI: Acute onset of chest pain x2 days, Trop 4.39, admit to [facility], Dr. Rowan consulted, on heparin gtt going for Heart cath. NPO, IVF, ASA, Statin, caution w/ beta mike and borderline bradycardia. 2. Chest Pain: some improvement after Morphine, NTG/Morphine prn as needed, will monitor closely. NPO for likely cath in am if persistent chest pain. 3. DVT Prophylaxis: Status post heparin gtt 10/29: Doing well cleared by cardiology discussed with Dr. griffin, CK increased to 1630, still unremarkable will repeat a level prior to follow-up with primary care physician in 2-3 days Discharge Planning Discharge patient to home Condition on discharge: Improved Healthy heart diet as tolerated Ad Brenda activity Rx written: See med rec Follow-up with primary care physician and cardiology in 1 week Shaheed Doyle MD October 29, 2017 18:02
--- NOTE | 2017-10-29 20:46 | EKG ---
Date Performed: 10/29/2017 Time Performed: 06:28:20 PTAGE: 56 years EKG: Sinus rhythm Left axis deviation Inferior infarct - age undetermined Anterolateral ST-T changes may be due to florence cardial ischemia Abnormal ECG PREVIOUS TRACING : 10/28/2017 14.16 Compared to previous tracing, T WAVE ABNORMALITIES ARE MOR E PROMINENT DOCTOR: Cuate Atwood Interpretating Date/Time 10/29/2017 20:45:27
--- NOTE | 2017-10-29 21:32 | EKG ---
Date Performed: 10/28/2017 Time Performed: 14:16:46 PTAGE: 56 years EKG: Sinus rhythm . Right bundle branch block Inferior infarct - age undetermined Lateral T wave changes may be due to myocardial ischemia Abnormal ECG PREVIOUS TRACING : 10/28/2017 08.39 Since the previous tracing, no significant change noted DOCTOR: Cuate Atwood Interpretating Date/Time 10/29/2017 21:30:41
--- NOTE | 2017-10-30 09:18 | PD ---
Data Data Last Documented VS Vital Signs Date Time Temp Pulse Resp B/P (MAP) Pulse Ox O2 Delivery O2 Flow Rate FiO2 10/27/17 20:00 57 20 106/66 (79) 96 Room Air 10/27/17 15:40 97.5 Orders Orders Electrocardiogram (10/27/17 15:48) Electrocardiogram (10/27/17 18:41) Basic Metabolic Panel (Bmp) (10/27/17 18:41) Ckmb (Isoenzyme) Profile (10/27/17 18:41) Complete Blood Count With Diff (10/27/17 18:41) D-Dimer (10/27/17 18:41) Magnesium (Mg) (10/27/17 18:41) Prothrombin Time / Inr (Pt) (10/27/17 18:41) Act Partial Throm Time (Ptt) (10/27/17 18:41) Troponin I (10/27/17 18:41) Ecg Monitoring (10/27/17 18:41) Bilateral Bp Monitoring (10/27/17 18:41) Iv Access Insert/Monitor (10/27/17 18:41) Oximetry (10/27/17 18:41) Oxygen Administration (10/27/17 18:41) Sodium Chloride 0.9% Flush (Ns Flush) (10/27/17 18:45) Chest, Pa & Lat (10/27/17 18:41) Aspirin (Aspirin) (10/27/17 19:00) Nitroglycerin 2% Oint (Nitroglycerin 2% (10/27/17 19:00) Morphine Inj (Morphine Inj) (10/27/17 19:45) Heparin Inj (Heparin Inj) (10/27/17 19:45) Heparin Inj (Heparin Inj) (10/28/17 01:45) Heparin Inj (Heparin Inj) (10/28/17 01:45) Heparin-D5w 25,000 U/250 Ml (Heparin-D5w (10/27/17 19:45) Occult Blood (Hemoccult) Stool (10/27/17 19:36) CKMB (10/27/17 18:45) CKMB% (10/27/17 18:45) Admit Order (Ed Use Only) (10/27/17 20:29) Consult Cardiology (10/27/17 ) Labs Laboratory Tests Test 10/27/17 18:45 White Blood Count 8.0 TH/MM3 Red Blood Count 5.00 MIL/MM3 Hemoglobin 14.3 GM/DL Hematocrit 43.0 % Mean Corpuscular Volume 86.0 FL Mean Corpuscular Hemoglobin 28.7 PG Mean Corpuscular Hemoglobin Concent 33.3 % Red Cell Distribution Width 15.6 % Platelet Count 248 TH/MM3 Mean Platelet Volume 7.0 FL Neutrophils (%) (Auto) 71.0 % Lymphocytes (%) (Auto) 18.1 % Monocytes (%) (Auto) 8.5 % Eosinophils (%) (Auto) 1.7 % Basophils (%) (Auto) 0.7 % Neutrophils # (Auto) 5.7 TH/MM3 Lymphocytes # (Auto) 1.4 TH/MM3 Monocytes # (Auto) 0.7 TH/MM3 Eosinophils # (Auto) 0.1 TH/MM3 Basophils # (Auto) 0.1 TH/MM3 CBC Comment DIFF FINAL Differential Comment Prothrombin Time 9.9 SEC Prothromb Time International Ratio 1.0 RATIO Activated Partial Thromboplast Time 29.9 SEC D-Dimer Quantitative (PE/DVT) 0.24 MG/L FEU Blood Urea Nitrogen 13 MG/DL Creatinine 0.98 MG/DL Random Glucose 94 MG/DL Calcium Level 9.0 MG/DL Magnesium Level 2.2 MG/DL Sodium Level 142 MEQ/L Potassium Level 4.6 MEQ/L Chloride Level 109 MEQ/L Carbon Dioxide Level 26.4 MEQ/L Anion Gap 7 MEQ/L Estimat Glomerular Filtration Rate 79 ML/MIN Total Creatine Kinase 492 U/L Creatine Kinase MB 17.6 NG/ML Creatine Kinase MB % 3.6 % Troponin I 4.39 NG/ML [facility] Supervised Visit with ZHENG: No Narrative Course This is a 56-year-old male who presents to the emergency department with chest discomfort. EKG is ischemic in appearance. I discussed the patient with Dr. Rowan and he reviewed the patient's EKGs with me. Given the patient's chest pain started 3 days ago and there are some Q waves in the inferior leads this is less likely to be an acute ST elevation MD. Patient will be medically managed and will have cardiac catheterization tomorrow. He was started on IV heparin in the emergency department. Physician Communication Physician Communication Discussed with Dr. Rowan and Dr. Glasgow Diagnosis Primary Impression: NSTEMI (non-ST elevated myocardial infarction) Admitting Information Admitting Physician Requests: Admit Scripts Aspirin DR (Aspirin DR) 81 Mg Tabdr 81 MG PO DAILY for cad, #30 TAB Prov: Shaheed Doyle MD 10/29/17 Metoprolol Tartrate (Metoprolol Tartrate) 25 Mg Tab 12.5 MG PO Q12HR for card, #60 TAB Prov: Shaheed Doyle MD 10/29/17 Atorvastatin (Atorvastatin) 40 Mg Tab 40 MG PO DAILY for hld, #30 TAB Prov: Shaheed Doyle MD 10/29/17 Ticagrelor (Brilinta) 90 Mg Tab 90 MG PO BID for cad, #60 TAB Prov: Shaheed Doyle MD 10/29/17 Deb Meza MD October 30, 2017 09:18
== END 2017-10-29 15:11 | disposition home or self-care (01) | DRG 249 ==
LOC: NEPC 15:11 → NEDA 20:31 → HCIS 22:57
PROVIDERS: ADMIT Hospitalist; ATTEND Hospitalist
PROC: 02703EZ Dilation of Coronary Artery, One Artery with Two Intraluminal Devices, Percutaneous Approach (ICD-10-PCS; principal; 2017-10-28)
PROC: 02C03ZZ Extirpation of Matter from Coronary Artery, One Artery, Percutaneous Approach (ICD-10-PCS; 2017-10-28)
PROC: B2111ZZ Fluoroscopy of Multiple Coronary Arteries using Low Osmolar Contrast (ICD-10-PCS; 2017-10-28)
DX: I21.4 Non-ST elevation (NSTEMI) myocardial infarction (principal); I10 Essential (primary) hypertension; I25.10 Atherosclerotic heart disease of native coronary artery without angina pectoris; M54.9 Dorsalgia, unspecified; G89.29 Other chronic pain; F41.9 Anxiety disorder, unspecified; E78.5 Hyperlipidemia, unspecified; F32.9 Major depressive disorder, single episode, unspecified; Z79.899 Other long term (current) drug therapy; Z82.3 Family history of stroke
CPT/HCPCS: 33210; 71046; 80048; 80053; 80061; 82550; 82552; 82948; 83735; 84484; 85025; 85379; 85610; 85730; 92928; 92973; 93005; 93306; 93454; 96374; 99152; 99153; C1725; C1757; C1760; C1769; C1876; C1887; C1893; C9460; G0269; J0153; J0583; J1644; J2250; J2270; J3010; J7030; Q9967